=== PATIENT | male | born 1945 | race Caucasian/White ===

== ENCOUNTER 2017-05-31 22:19 | Emergency (ER) | payer MEDICARE ==
[2017-05-31] MEDS ORDERED: diphenhydrAMINE HCl 25 MG CAP ONE (23:03)
[2017-05-31] MEDS ORDERED: Metoclopramide HCl 10 MG TAB PO SCH (23:15)
--- NOTE | 2017-06-01 00:03 | CT ---
CT BRAIN NONCONTRAST: HISTORY: A 71-year-old hypertensive male with headache. FINDINGS: There is no midline shift or any other mass effect. There is no evidence of acute intracranial hemo rrhage, large cortical infarct, obstructive hydrocephalus, or extraaxial fluid collection. The calv arium is intact. There is diffuse parenchymal volume loss. There are low attenuation areas in the white matter. These are nonspecific, but in a patient of this age, they are probably chronic ischem ic white matter changes due to microvascular atherosclerosis. There is a small, round, 6 mm cystic lesion with thin rim calcification, to the right of midline, within the fourth ventricle. The etiol ogy is uncertain, but one possibility is old, inactive neurocysticercosis. This has been present si nce an older CT of 07/21/2011 and has not changed. IMPRESSION: 1) No acute intracranial findings. 2) Involutional changes and chronic ischemic white matter changes. sonali POS: [facility]
== END 2017-06-01 00:03 | disposition home or self-care (01) ==
LOC: ERS 22:19
DX: I10 Essential (primary) hypertension (principal); I48.91 Unspecified atrial fibrillation; E78.5 Hyperlipidemia, unspecified; Z79.82 Long term (current) use of aspirin; Z79.899 Other long term (current) drug therapy
CPT/HCPCS: 70450

== ENCOUNTER 2020-01-26 19:01 | Inpatient (IN) | payer MEDICARE ==
[2020-01-26 19:35] LABS: #Eosinphils 0.1 thou/uL (0.0-0.7); #Lymphocytes 1.2 thou/uL (1.20-3.40); #Monocytes 0.7 thou/uL (0.11-0.59); #Neutrophils 4.7 thou/uL (1.40-6.50); %Basophils 0.3 % (0.0-1.0); %Lymphocytes 17.9 % (21.0-51.0); %Monocytes 10.7 % (0.0-10.0); %Neutrophils 69.1 % (42.0-75.0); Hemoglobin 14.4 g/dL (14.0-18.0); Mean Corpuscular HGB CONC 34.5 g/dL (32.0-36.0); Mean Corpuscular Hemoglobin 30.5 pg (27.0-31.0); Mean Corpuscular Volume 88.5 fL (78.0-98.0); Mean Platelet Volume 9.1 fL (7.4-10.4); Platelet Count 217 thou/uL (130-400); RBC Distribution Width 12.6 % (11.5-14.5); White Blood Cell (WBC) Count 6.8 thou/uL (4.8-10.8)
[2020-01-26 19:57] LABS: ALT (SGPT) 50 U/L (8-55); AST (SGOT) 37 U/L (5-34); Albumin 4.1 g/dL (3.4-4.8); Alkaline Phosphatase 75 U/L (40-110); Anion Gap 15 mmol/L (10-20); BUN (Urea Nitrogen) 18 mg/dL (8.4-25.7); Bilirubin, Total 0.4 mg/dL (0.2-1.2); Calc. Creatinine Clearance 0 mL/min (70-130); Calcium 9.4 mg/dL (7.8-10.44); Carbon Dioxide 22 mmol/L (23-31); Chloride 108 mmol/L (98-107); Estimated GFR-MDRD 56; Glucose 119 mg/dL (83-110); Potassium 4.5 mmol/L (3.5-5.1); Protein, Total 7.1 g/dL (5.8-8.1); Sodium 140 mmol/L (136-145)
--- NOTE | 2020-01-26 20:33 | RAD ---
PORTABLE CHEST ONE VIEW: 01/26/20 at 7:13 p.m. HISTORY: Shortness of breath and lightheadedness. COMPARISON: 01/31/13. FINDINGS: The heart size is normal. No focal areas of consolidation, pneumothoraces, or pleural effusions are s een. IMPRESSION: No acute process. POS: [facility]
--- NOTE | 2020-01-26 21:13 | PDOC.EVN ---
Event Note - Event Note Event Note: [id number] dictated
--- NOTE | 2020-01-26 22:04 | HP ---
CHIEF COMPLAINT: Shortness of breath and dizziness. HISTORY OF PRESENT ILLNESS: Mr. Vallejo is a 74-year-old male with past medical history of cardiac arrhythmias, atrial fibrillation, ablation, hyperlipidemia, on metoprolol, on Eliquis, presents to the emergency room with a chief complaint of shortness of breath. The patient also has been feeling weak, lightheaded, and dizzy, which have been occurring for the last 2 weeks. The patient states that he has history of atrial fibrillation and he had an ablation [place] [address] Farley. The patient states that he hit his head a week ago, and CT was performed which was negative. It did show an old infarct. The patient denies any headache or neurological deficits. He is on metoprolol 50 mg p.o. twice a day. Dr. Cho is his senior analysis specialist. Workup in the emergency room, the patient was bradycardic. With EKG showing second-degree AV block. The ED physician discussed the case with Dr. Gomez, senior analysis specialist, who advised to admit the patient, and Cardiology will consult. PAST MEDICAL HISTORY: 1. Cardiac arrhythmias, atrial fibrillation. 2. Hyperlipidemia. 3. Colon cancer. 4. CVA. PAST SURGICAL HISTORY: Colon resection. SOCIAL HISTORY: He drinks socially. He has no smoking history. Lives with family. FAMILY HISTORY: Reviewed and noncontributory. HOME MEDICATIONS: Please see home medication reconciliation form for updated medications. REVIEW OF SYSTEMS: Review of 14 systems negative except what is mentioned in history of present illness. ALLERGIES: NO KNOWN ALLERGIES. PHYSICAL EXAMINATION: GENERAL: The patient is awake, alert, does not appear to be in acute distress. VITAL SIGNS: Blood pressure 138/71, pulse on presentation was 42, later pulse is 72, temperature is 98.4, oxygen saturations 99% on room air, respiratory rate is 14. HEAD AND NECK: Normocephalic and atraumatic. NECK: Supple. No JVD. CHEST: Fair bilateral air entry. HEART: S1 and S2. Regular. ABDOMEN: Soft, nontender. Bowel sounds present. NEUROLOGIC: Awake, alert, oriented x4. Moving extremities. PSYCH: Unable to assess. EXTREMITIES: No clubbing or cyanosis. LABORATORY DATA: Troponin 0.01. Chest x-ray, no acute finding. EKG as mentioned above in the history of present illness. ASSESSMENT: 1. Symptomatic bradyarrhythmia/heart block. 2. Dizziness, lightheadedness. 3. Shortness of breath. 4. Anticoagulated on Eliquis. 5. History of cardiac ablation. 6. History of colon cancer, treated with resection, chemo and radiation. 7. History of cerebrovascular accident. PLAN: 1. Admit to [facility]. 2. Telemetry monitoring. 3. Roofer consulted for further management. 4. We will hold the beta robb, assessed by a senior analysis specialist. 5. Reconcile home medications. 6. DVT prophylaxis as appropriate. 7. Expected length of stay, 2 midnights or more. Job ID: [id number]
[2020-01-26] MEDS ORDERED: Acetaminophen 325 MG TAB PO PRN (23:18)
[2020-01-26] MEDS ORDERED: Ondansetron ODT 4 MG TAB SL PRN (23:18)
[2020-01-26] MEDS ORDERED: Ondansetron PF 4 MG/2 ML Vial IVP PRN (23:18)
[2020-01-26 23:22] VITALS: BMI 30.8
[2020-01-27 00:56] LABS: Troponin I Less than 0.010 ng/mL (< 0.028)
[2020-01-27] MEDS ORDERED: Glucosamine Chondroitin Cap PO SCH (09:00)
[2020-01-27] MEDS: Dutasteride 0.5 MG CAP PO SCH (11:35)
[2020-01-27] MEDS: Multivitamin W/ Minerals 1 TAB PO SCH (11:35)
--- NOTE | 2020-01-27 13:02 | PRG ---
DATE OF SERVICE: 01/27/2020 SUBJECTIVE: The patient is seen and examined at bedside. He does not have much complaints to offer. He does not have any pain. He is not short of breath. Only he gets short of breath when he walks longer distance. OBJECTIVE: VITAL SIGNS: Blood pressure is 141/69, pulse is 62, respirations 16, O2 saturation 97% on room air, temperature is 97.8. HEENT: His head is atraumatic and normocephalic. Eyes are PERRLA. Sclerae are nonicteric. Oral mucosa is moist. NECK: Supple. LUNGS: Clear. HEART: S1 and S2 normal. No S3. No S4. No any murmur. ABDOMEN: Soft, nontender. Bowel sounds are present. No organomegaly. EXTREMITIES: No clubbing, cyanosis, or edema. NEUROLOGIC: He is alert and oriented x4. There is no any motor or sensory deficits. LABORATORY DATA: Normal troponins, three sets. IMPRESSION: 1. Second-degree AV block. 2. Dizziness and lightheadedness. 3. History of cardiac ablation. 4. History of colon cancer, treated with resection and chemotherapy and radiation. 5. History of cerebrovascular accident. PLAN: Awaiting for tanning drum operator to see him at this point. We will hold his apixaban and metoprolol at this point since tanning drum operator will have to make decision about the next step at this point. Job ID: [id number]
--- NOTE | 2020-01-27 15:24 | CON ---
DATE OF CONSULTATION: REASON FOR CONSULTATION: Second-degree type 2 AV block. HISTORY OF PRESENT ILLNESS: Mr. Vallejo is a very pleasant 74-year-old gentleman whom I have seen him in the past. He has a past history of paroxysmal atrial fibrillation. He has been on Eliquis. He is also on metoprolol 50 mg p.o. b.i.d. He re-presented with shortness of breath. He states he had difficulty walking to the mailbox. He was found to have a second-degree type 2 AV block while in the ER. This has since resolved after discontinuing his metoprolol. He states he is back to baseline. PAST MEDICAL HISTORY: Paroxysmal atrial fibrillation, hypertension, hyperlipidemia, sleep apnea. CURRENT HOME MEDICATIONS: 1. Glucosamine. 2. Eliquis. 3. Avodart. 4. Metoprolol. 5. Multivitamin. 6. Lipitor. 7. . PAST SURGICAL HISTORY: Hemicolectomy and previous heart catheterization in 2011. SOCIAL HISTORY: No current tobacco or alcohol use. ALLERGIES: NONE. REVIEW OF SYSTEMS: A 10-point review of systems is reviewed and as above, otherwise negative. PHYSICAL EXAMINATION: GENERAL: Patient is a pleasant gentleman who is in no acute distress. The patient appears their stated age. VITAL SIGNS: Blood pressure 140/69, pulse 62, temperature 98.7. NEUROLOGIC: The patient is alert and oriented x3 with no focal neurologic deficits. HEENT: Sclerae without icterus. Mouth has moist mucous membranes with normal pallor. NECK: No JVD. Carotid upstroke brisk. No bruits bilaterally. LUNGS: Clear to auscultation with unlabored respirations. BACK: No scoliosis or kyphosis. CARDIAC: Regular rate and rhythm with normal S1 and S2. No S3 or S4 noted. No significant rubs, murmurs, thrills, or gallops noted throughout the precordium. PMI is not displaced. There is no parasternal heave. ABDOMEN: Soft, nontender, nondistended. No peritoneal signs present. No hepatosplenomegaly. No abnormal striae. EXTREMITIES: 2+ femoral and 2+ dorsalis pedis pulses. No cyanosis, clubbing, or edema. SKIN: No gross abnormalities. PERTINENT LABORATORY DATA: Hemoglobin 14.4, creatinine 1.25, troponin negative. Echo Doppler pending. IMPRESSION: 1. Second degree type 2 AV block. 2. History of paroxysmal atrial fibrillation. RECOMMENDATIONS: At this point, Mr. Vallejo's beta robb is unlikely to cause underlying second-degree type 2 AV block. His presentation suggest symptoms from his rhythm disturbance. I would recommend EP consultation. The patient will likely need pacer. He has been off his Eliquis with last dose yesterday morning. Job ID: [id number]
[2020-01-27 15:37] LABS: Prothrombin Time 13.4 sec (12.0-14.7)
[2020-01-27] MEDS ORDERED: Atorvastatin Calcium 20 MG TAB PO SCH (21:00)
--- NOTE | 2020-01-27 21:00 | CON ---
DATE OF CONSULTATION: 01/27/2020 PRIMARY CARE PHYSICIAN: Leroy Zapata MD REASON FOR CONSULTATION: 2:1 AV block. HISTORY OF PRESENT ILLNESS: Mr. Vallejo is a pleasant 74-year-old white male with a history of paroxysmal atrial fibrillation with ablation by the [facility] in 2013. He has a 2-day history of exertional dyspnea, which is [id number] relieved with rest. In addition, he has daily fatigue, which is moderate in intensity with no exacerbating or alleviating factors. He has had no syncope. He was noted to be in 2:1 AV block on admission. Echocardiogram was performed this morning. PAST MEDICAL HISTORY: 1. Paroxysmal atrial fibrillation with ablation in 2013. 2. Dyslipidemia. 3. Colon cancer status post resection. 4. CVA. PAST SURGICAL HISTORY: Colon resection. ALLERGIES: NO KNOWN DRUG ALLERGIES. HOME MEDICATIONS: 1. Eliquis 5 mg b.i.d. 2. Metoprolol 50 mg b.i.d. 3. Lipitor 20 mg q.p.m. 4. Vitamin D3. 5. Dutasteride 0.5 mg daily. 6. Glucosamine chondroitin daily. FAMILY HISTORY: Unremarkable. SOCIAL HISTORY: Occasional alcohol. Never smoked. REVIEW OF SYSTEMS: No melena, bright red blood per rectum, hematemesis. No seizures, syncope, stroke, chest discomfort, orthopnea, or edema. PHYSICAL EXAMINATION: GENERAL: Alert and oriented x4. No apparent distress, afebrile, pulse 50, respiratory rate 12, ox saturation 96% on room air, blood pressure 144/75. HEENT: No lesions. Sclerae clear. SKIN: No lesions. CARDIOVASCULAR: Bradycardic, regular rhythm. No murmurs, gallops, rubs. LUNGS: Clear to auscultation bilaterally. Normal respiratory effort. EXTREMITIES: No cyanosis, clubbing or edema. IMAGING: EKG sinus rhythm with 2:1 AV block. LABORATORY DATA: Sodium 140, potassium 4.5, creatinine 1.2. WBC 6.8, hemoglobin 14.4, platelet 217. IMPRESSION: 1. Mobitz type II 2:1 atrioventricular block with symptomatic bradycardia. 2. Paroxysmal atrial fibrillation. Recommend we have discussed risks, benefits, alternatives of permanent pacemaker implantation including, but not limited to myocardial infarction, stroke, , infection, need for device removal, pneumothorax, need for chest tube placement, lead dislodgement, need for revision, left arm swelling. We will plan to perform this tomorrow. He is agreeable to proceed. Job ID: [id number]
[2020-01-28] MEDS ORDERED: Vancomycin 1.5 GRAM/300 ML BAG 1.5 GM in Premix Bag 1 BAG IVPB SCH (05:00)
[2020-01-28] MEDS ORDERED: Gentamicin 80 MG/2 ML VIAL ONE (06:26)
[2020-01-28] MEDS ORDERED: CEFAZOLIN 1 GM VIAL ONE (06:26)
[2020-01-28] MEDS ORDERED: HYDROcodone/Acetaminophen 5/325 mg Tablet PO PRN (06:59)
[2020-01-28] MEDS ORDERED: Midazolam HCl 2 mg/2 ml Vial ONE ×2 (07:07→07:12)
[2020-01-28] MEDS ORDERED: Fentanyl 100 MCG/2 ML VIAL ONE (07:07)
[2020-01-28] MEDS: Multivitamin W/ Minerals 1 TAB PO SCH (08:51)
[2020-01-28] MEDS: Dutasteride 0.5 MG CAP PO SCH (08:51)
[2020-01-28] MEDS ORDERED: Iopamidol 370 76% 50 ML VIAL FS ONE (09:17)
[2020-01-28 10:39] LABS: Anion Gap 9 mmol/L (10-20); BUN (Urea Nitrogen) 12 mg/dL (8.4-25.7); Calc. Creatinine Clearance 90 mL/min (70-130); Calcium 8.8 mg/dL (7.8-10.44); Carbon Dioxide 27 mmol/L (23-31); Chloride 107 mmol/L (98-107); Estimated GFR-MDRD 68; Glucose 166 mg/dL (83-110); Potassium 3.8 mmol/L (3.5-5.1); Sodium 139 mmol/L (136-145)
--- NOTE | 2020-01-28 12:21 | RAD ---
SINGLE VIEW OF THE CHEST: COMPARISON: None. HISTORY: Status post cardiac pacemaker placement. FINDINGS: A single view of the chest shows a normal-size cardiomediastinal silhouette. There is a pacemaker wi th its leads in the right atrium and ventricle. No pneumothorax is seen. There is no evidence of co nsolidation, mass, or pleural effusion. IMPRESSION: Status post pacemaker placement without evidence of complication. POS: [facility]
[2020-01-28 13:20] VITALS: BP 142/79; TEMP 97.5
[2020-01-28] MEDS ORDERED: CEFAZOLIN 2 GM in Premix Bag 1 BAG IVPB SCH (15:00)
--- NOTE | 2020-01-29 01:52 | DIS ---
DATE OF ADMISSION: 01/26/2020 DATE OF DISCHARGE: 01/28/2020 DISCHARGE DIAGNOSES: 1. A 2:1 atrioventricular block. 2. History of atrial fibrillation, on Eliquis. 3. Hyperlipidemia. 4. History of colon cancer. 5. History of cerebrovascular accident. CONSULTATIONS: Leander Cho MD of Cardiology and Manfred Rizo MD with EP. PROCEDURES: Pacemaker placement on 01/27. HISTORY OF PRESENT ILLNESS: This is a 74-year-old male with a past medical history of atrial fibrillation status post ablation, who presented to the emergency room with weakness, lightheadedness, and dizziness for the past 2 weeks. The patient presented to the emergency room and was found to be bradycardic. His EKG showed a second-degree AV block. The patient was admitted for pacemaker evaluation. HOSPITAL COURSE: Second-degree AV block status post pacemaker placement: The patient underwent pacemaker insertion on 01/27. He tolerated the procedure well. He is currently in sinus rhythm at this time. He will be discharged with minocycline for additional 5 days as prophylaxis for pacemaker infection. He will decrease his metoprolol to 50 mg XL once daily. He will follow up with Dr. Manfred Rizo in 2 weeks. They will call him for an appointment. He should resume his Eliquis on Friday. DISCHARGE PHYSICAL EXAMINATION: VITAL SIGNS: Temperature 97.5, heart rate 74, respiratory rate 16, O2 saturation 96% on room air, and blood pressure 142/79. GENERAL: The patient is alert, awake, and oriented x3. CVS: Regular rate and rhythm. No murmurs, rubs, or gallops. LUNGS: Clear to auscultation bilaterally. ABDOMEN: Positive bowel sounds. Soft, nontender, and nondistended. EXTREMITIES: No edema. PERTINENT LABORATORY DATA: CBC 01/25: Normal. BMP 01/27: Normal. AST 01/25: AST was 37. Rest of LFTs are normal. Troponin I: Negative x3. INR: 1.0. PERTINENT IMAGING: Echocardiogram 01/26: Shows EF 55% to 60%. Mild to moderate MR. Grade 2 diastolic dysfunction. Chest x-ray 01/27: Status post pacemaker placement without evidence of complication. Chest x-ray 01/25: No acute process. DISCHARGE INSTRUCTIONS: The patient should follow up with his PCP in a week and Dr. Manfred Rizo in 2 weeks. Reduce his metoprolol to 50 mg once daily. Take minocycline for 5 days. DISCHARGE MEDICATIONS: 1. Minocycline 100 mg p.o. q.12 hours, quantity 10. 2. Metoprolol succinate 50 mg p.o. daily, quantity 30. Job ID: [id number] MTDD
== END 2020-01-28 15:02 | disposition home or self-care (01) | DRG 244 ==
LOC: ERS 19:01 → 2NO 21:01
PROVIDERS: ADMIT Internal Medicine; ATTEND Internal Medicine
PROC: 0JH606Z Insertion of Pacemaker, Dual Chamber into Chest Subcutaneous Tissue and Fascia, Open Approach (ICD-10-PCS; principal; 2020-01-28)
PROC: 02H63JZ Insertion of Pacemaker Lead into Right Atrium, Percutaneous Approach (ICD-10-PCS; 2020-01-28)
PROC: 02HK3JZ Insertion of Pacemaker Lead into Right Ventricle, Percutaneous Approach (ICD-10-PCS; 2020-01-28)
DX: I44.1 Atrioventricular block, second degree (principal); I48.91 Unspecified atrial fibrillation; E78.5 Hyperlipidemia, unspecified; I48.0 Paroxysmal atrial fibrillation; G47.33 Obstructive sleep apnea (adult) (pediatric); Z79.01 Long term (current) use of anticoagulants; Z85.038 Personal history of other malignant neoplasm of large intestine; Z86.73 Personal history of transient ischemic attack (TIA), and cerebral infarction without residual deficits; Z90.49 Acquired absence of other specified parts of digestive tract
CPT/HCPCS: 33208; 36415; 71045; 75820; 80048; 80053; 84484; 85025; 85610; 93005; 93010; 93306; 94760; 99152; 99153; C1785; C1898; J0690; J1580; J2250; J3010; J3370; Q9967

== ENCOUNTER 2020-05-04 09:53 | Outpatient (CLI) | payer MEDICARE ==
--- NOTE | 2020-05-04 15:45 | PET ---
EXAM: PET/CT HISTORY: New diagnosis of lung cancer with a previous history of rectal cancer and hip pain. Right upper lobe nodule biopsy demonstrated adenocarcinoma, consistent with lung primary. TECHNIQUE: PET scanning with CT attenuation correction was performed from the base of the brain to the proximal thighs following the intravenous administration of 11 millicuries [id number]. COMPARISON: None. CORRELATION: CT chest, abdomen and pelvis of 03/31/[address] pelvis of 05/02/2020 FINDINGS: No elvis hypermetabolism is seen in the neck, axillae, left hilar regions, abdomen and pelvis. There is increased FDG localization in the right upper lobe lung nodule within a SUV of 5.7. Hypermet abolic right hilar lymph node demonstrates an SUV of 12.4 and subcarinal lymph node demonstrates an SUV of 6.4. No hypermetabolic liver or adrenal lesions are seen. There are foci of increased uptake in the skeleton including T6 vertebral body (SUV 9), right pedicle of T7 (SUV 8.6), L3 vertebral body (SUV 12.8) and right anterior superior iliac wing (SUV 11.5). Associated fractures of T7 and right anterior superior iliac wing are new since 03/31/2020 and are lik shadia pathologic. There is physiologic activity in the GI and tracts and the visualized portions of the brain. The CT scan used for attenuation correction demonstrates no evidence of pleural effusions or ascites. IMPRESSION: Right upper lobe lung malignancy with right hilar, mediastinal lymph elvis and osseous metastases.
== END 2020-05-04 09:54 | disposition home or self-care (01) ==
LOC: PET 09:53
PROVIDERS: ATTEND Internal Medicine Hematology & Oncology
DX: C34.11 Malignant neoplasm of upper lobe, right bronchus or lung (principal)
CPT/HCPCS: 78815; A9552

== ENCOUNTER 2020-05-11 10:28 | Inpatient (IN) | payer MEDICARE, OTHER ==
[2020-05-11 11:22] LABS: #Basophils 0.1 thou/uL (0.0-0.2); #Eosinphils 0.1 thou/uL (0.0-0.7); #Lymphocytes 0.5 thou/uL (1.20-3.40); #Monocytes 0.7 thou/uL (0.11-0.59); #Neutrophils 7.1 thou/uL (1.40-6.50); %Basophils 0.6 % (0.0-1.0); %Eosinophils 1.2 % (0.0-10.0); %Lymphocytes 5.8 % (21.0-51.0); %Monocytes 7.9 % (0.0-10.0); %Neutrophils 84.5 % (42.0-75.0); Hemoglobin 14.8 g/dL (14.0-18.0); Mean Corpuscular HGB CONC 32.5 g/dL (32.0-36.0); Mean Corpuscular Hemoglobin 29.6 pg (27.0-31.0); Mean Corpuscular Volume 91.1 fL (78.0-98.0); Mean Platelet Volume 7.2 fL (7.4-10.4); Platelet Count 207 thou/uL (130-400); RBC Distribution Width 14.2 % (11.5-14.5); Red Blood Cell (RBC) Count 5.01 mill/uL (4.70-6.10); White Blood Cell (WBC) Count 8.5 thou/uL (4.8-10.8)
--- NOTE | 2020-05-11 11:37 | CT ---
Exam: Head CT without contrast HISTORY: Altered mental status COMPARISON: 05/31/2017 FINDINGS: Hemorrhage: No intraparenchymal hemorrhage or extra-axial hematoma. Brain parenchyma: There appears to be a intraparenchymal lesion in the left frontal lobe measuring 1. 5 x 1.6 cm. There is vasogenic edema and sulcal effacement involving the left frontal lobe. No significant midline shift. There are chronic small vessel ischemic changes of the white matter. Ventricular system: No evidence of hydrocephalus. Stable lesion with peripheral calcification in the fourth ventricle. Calvarium: Intact. Sinuses and mastoid air cells: Adequate aeration. IMPRESSION: 1. Left frontal lobe intraparenchymal mass with associated vasogenic edema. Incomplete characterizati on. Patient has a history of lung cancer. Metastases is favored. Correlation made with a brain MRI from 03/27/2020 does demonstrate a intraparenchymal lesion in the le ft frontal lobe.
--- NOTE | 2020-05-11 11:41 | RAD ---
Exam: One view chest 2 views abdomen HISTORY: Pain. FINDINGS: Chest 1 view: Dual lead left-sided transvenous pacemaker terminates over the region right atrium and right ventricle There is slight elongation of the aorta Normal cardiac silhouette Pulmonary vessels and hilum are normal Costophrenic angles are clear. There is a mass in the right upper lobe, compatible with known malignancy. There is a lucent lesion involving the right clavicle which may represent a metastatic deposit. No pneumothorax or acute osseous abnormalities 2 views abdomen: Nonspecific bowel gas pattern. No suspicious densities in the abdomen or pelvis. Henri gical clips are identified in the midline pelvis. Limited option the right hip. There is concern for fracture, dedicated right hip radiograph series is recommended. Right hip radiograph from 05/02/2020 does not demonstrate any fracture IMPRESSION: 1. Nonspecific bowel gas pattern 2. Right lung mass.
[2020-05-11 11:50] LABS: ALT (SGPT) 27 U/L (8-55); AST (SGOT) 15 U/L (5-34); Albumin 3.6 g/dL (3.4-4.8); Alkaline Phosphatase 113 U/L (40-110); Anion Gap 17 mmol/L (10-20); BUN (Urea Nitrogen) 17 mg/dL (8.4-25.7); Bilirubin, Total 0.9 mg/dL (0.2-1.2); CK (CPK) 36 U/L (30-200); Calc. Creatinine Clearance 0 mL/min (70-130); Calcium 9.4 mg/dL (7.8-10.44); Carbon Dioxide 25 mmol/L (23-31); Chloride 97 mmol/L (98-107); Estimated GFR-MDRD 66; Globulin 2.7 g/dL (2.4-3.5); Glucose 122 mg/dL (83-110); Lipase 26 U/L (8-78); Potassium 4.5 mmol/L (3.5-5.1); Protein, Total 6.3 g/dL (5.8-8.1); Sodium 134 mmol/L (136-145)
--- NOTE | 2020-05-11 12:00 | CT ---
CT lumbar spine noncontrast: HISTORY: 74-year-old male with history of lung cancer and rectal cancer presents to the emergency department w ith lower extremity weakness. FINDINGS: Vertebral body heights are maintained. The level at the thoracolumbar junction with small bilateral ribs will be designated as L1 with bilat eral accessory ribs. There is a fracture of the inferior endplate of L3 with Schmorl's node type herniation of the disc ma terial into the vertebral body. At the superior portion of the fracture, there is an approximately 2 cm osteolytic lesion of the L3 vertebral body centered to the left of midline. This does not result in overall loss of height. There is no bony retropulsion. Chronic retrolisthesis of L2 on L3. There is moderate and severe degenerative disc disease at various levels. There is moderate central s mono canal stenosis at L2-3. There is multilevel high-grade neural foraminal stenosis, especially on the left at L4-5, L3-4, and L2-3. There is moderate to severe bilateral facet DJD at L4-5 and L5-S 1. 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 IMPRESSION: 1.) Moderate lumbar spondylosis with multilevel degenerative disc disease and facet osteoarthrosis. 2) focal Schmorl's node fracture of inferior endplate of L3, which may not be chronic. This questiona trina involves a 2 cm osteolytic lesion of the L3 vertebral body. Given the history of malignancy, this raises the possibility of a bone metastasis.
[2020-05-11 12:23] LABS: Bilirubin Negative (Negative); Blood, Urine Negative (Negative); Clarity Clear (Clear); Glucose, Urine (Dipstick) Normal (Negative); Ketone, Urine Negative (Negative); Leukocyte Negative Leu/uL (Negative); Nitrite Negative (Negative); Protein, Urine (Dipstick) Negative (Neg-Trace); Specific Gravity, Urine 1.013 (1.002-1.036); Urobilinogen Normal mg/dL (Less than 2); pH, Urine 7.5 (5.0-9.0)
[2020-05-11] MEDS ORDERED: Morphine 4 MG/ML VIAL ONE (12:59)
--- NOTE | 2020-05-11 13:19 | RAD ---
2 views of the right hip: 05/11/2020 COMPARISON: 05/02/2020 HISTORY: Injury, trauma, pain FINDINGS: There is a displaced comminuted fracture involving the superior and lateral aspect of the r ight iliac bone, only partially imaged on this examination, demonstrating increased comminution and distal displacement when compared to the 05/02/2020 exam. No acute fracture or dislocation is seen inv olving the right hip. IMPRESSION: Incompletely imaged comminuted and displaced superior lateral right iliac wing fracture, likely pathologic in nature. This is not fully imaged on this examination. Follow-up orthopedic consultation is suggested.
--- NOTE | 2020-05-11 14:35 | RAD ---
Exam: Single view of the pelvis HISTORY: Right pelvic pain COMPARISON: CT pelvis 05/02/2020 FINDINGS: A single view the pelvis shows a comminuted fracture of the right iliac wing. No other frac tures are appreciated. No degenerative changes seen in either hip. IMPRESSION: Right iliac wing fracture. This fracture is likely pathologic
--- NOTE | 2020-05-11 15:41 | PDOC.HHP ---
Hospitalist HPI - History of Present Illness Generalized weakness History of Present Illness: The patient is a 74-year-old male with past medical history of active lung cancer with metastasis to the brain and bone who is under the care of Dr. Rosales and currently on hold for referral to [facility] for immunotherapy. He presented to the ER after a fall at home. The patient stated that he feels weak and was unable to get up or transfer from bed to the chair. Hospitalist ROS - Review of Systems All other systems reviewed; all pertinent +/- noted in HPI/Subj Hospitalist History - Past Medical History Other Medical History: Metastatic lung cancer Atrial fibrillation - Past Surgical History Other Surgical History: Dominant resection of brain tumor Colon resection - Family History Family History: reports: no pertinent history - Social History Alcohol: reports: None Drugs: reports: none - Exam General Appearance: awake alert ENT: normocephalic atraumatic Neck: supple, no JVD Heart: RRR, no murmur, no gallops, no rubs, normal peripheral pulses Respiratory: normal chest expansion, no tachypnea Gastrointestinal: soft, non-tender, non-distended, normal bowel sounds Neurological: cranial nerve grossly intact Hospitalist Results - Labs Result Diagrams: 05/12/20 03:21 05/12/20 03:21 Lab results: WBC 8.5 thou/uL (4.8-10.8) 05/11/20 11:10 Hgb 14.8 g/dL (14.0-18.0) 05/11/20 11:10 Hct 45.7 % (42.0-52.0) 05/11/20 11:10 MCV 91.1 fL (78.0-98.0) 05/11/20 11:10 Plt Count 207 thou/uL (130-400) 05/11/20 11:10 Neutrophils % 84.5 % (42.0-75.0) H 05/11/20 11:10 Sodium 134 mmol/L (136-145) L 05/11/20 11:10 Potassium 4.5 mmol/L (3.5-5.1) 05/11/20 11:10 Chloride 97 mmol/L (98-107) L 05/11/20 11:10 Carbon Dioxide 25 mmol/L (23-31) 05/11/20 11:10 BUN 17 mg/dL (8.4-25.7) 05/11/20 11:10 Creatinine 1.09 mg/dL (0.7-1.3) 05/11/20 11:10 Glucose 122 mg/dL (83-110) H 05/11/20 11:10 Calcium 9.4 mg/dL (7.8-10.44) 05/11/20 11:10 Total Bilirubin 0.9 mg/dL (0.2-1.2) 05/11/20 11:10 AST 15 U/L (5-34) 05/11/20 11:10 ALT 27 U/L (8-55) 05/11/20 11:10 Alkaline Phosphatase 113 U/L (40-110) H 05/11/20 11:10 Creatine Kinase 36 U/L (30-200) 05/11/20 11:10 Troponin I Less than 0.010 ng/mL (< 0.028) 05/11/20 11:10 B-Natriuretic Peptide 22.8 pg/mL (0-100) 05/11/20 11:10 Serum Total Protein 6.3 g/dL (5.8-8.1) 05/11/20 11:10 Albumin 3.6 g/dL (3.4-4.8) 05/11/20 11:10 Lipase 26 U/L (8-78) 05/11/20 11:10 Urine Ketones Negative mg/dL (Negative) 05/11/20 12:10 Urine Blood Negative (Negative) 05/11/20 12:10 Urine Nitrite Negative (Negative) 05/11/20 12:10 Ur Leukocyte Esterase Negative Salima/uL (Negative) 05/11/20 12:10 Hospitalist H&P A/P - Problem (1) Generalized weakness Code(s): R53.1 - WEAKNESS Status: Acute (2) Lung cancer metastatic to bone Code(s): C34.90 - MALIGNANT NEOPLASM OF UNSP PART OF UNSP BRONCHUS OR LUNG; C79.51 - SECONDARY MALIGNANT NEOPLASM OF BONE Status: Acute (3) Lung cancer metastatic to brain Code(s): C34.90 - MALIGNANT NEOPLASM OF UNSP PART OF UNSP BRONCHUS OR LUNG; C79.31 - SECONDARY MALIGNANT NEOPLASM OF BRAIN Status: Acute - Plan Plan: The patient with history of metastatic lung cancer. He is being admitted for generalized weakness. PT and OT evaluation. Consult case management for rehab placement. Otherwise he is clinically stable.
[2020-05-11] MEDS ORDERED: Ondansetron PF 4 MG/2 ML Vial IVP PRN (15:42)
[2020-05-11] MEDS: HYDROcodone/Acetaminophen 5/325 mg Tablet PO PRN (20:26)
[2020-05-11 21:15] VITALS: BMI 30.8
[2020-05-11] MEDS: Famotidine 20 MG TAB PO SCH (21:28)
[2020-05-11] MEDS: Apixaban 5 MG TAB PO SCH (21:28)
[2020-05-11] MEDS ORDERED: Morphine 4 MG/ML VIAL SLOW IVP SCH (21:30)
[2020-05-12] MEDS: HYDROcodone/Acetaminophen 5/325 mg Tablet PO PRN ×5 (00:01→20:55)
[2020-05-12 03:50] LABS: #Eosinphils 0.1 thou/uL (0.0-0.7); #Lymphocytes 0.6 thou/uL (1.20-3.40); #Monocytes 0.9 thou/uL (0.11-0.59); #Neutrophils 7.1 thou/uL (1.40-6.50); %Basophils 0.1 % (0.0-1.0); %Eosinophils 1.2 % (0.0-10.0); %Lymphocytes 6.9 % (21.0-51.0); %Neutrophils 81.8 % (42.0-75.0); Mean Corpuscular HGB CONC 34.6 g/dL (32.0-36.0); Mean Corpuscular Hemoglobin 30.7 pg (27.0-31.0); Mean Corpuscular Volume 88.8 fL (78.0-98.0); Mean Platelet Volume 7.6 fL (7.4-10.4); Platelet Count 190 thou/uL (130-400); Red Blood Cell (RBC) Count 4.22 mill/uL (4.70-6.10); White Blood Cell (WBC) Count 8.6 thou/uL (4.8-10.8)
[2020-05-12 04:11] LABS: Anion Gap 14 mmol/L (10-20); BUN (Urea Nitrogen) 20 mg/dL (8.4-25.7); Calc. Creatinine Clearance 101 mL/min (70-130); Calcium 8.3 mg/dL (7.8-10.44); Carbon Dioxide 23 mmol/L (23-31); Chloride 100 mmol/L (98-107); Estimated GFR-MDRD 75; Glucose 154 mg/dL (83-110); Potassium 4.2 mmol/L (3.5-5.1); Sodium 133 mmol/L (136-145)
[2020-05-12] MEDS: Dutasteride 0.5 MG CAP PO SCH (09:04)
[2020-05-12] MEDS: Famotidine 20 MG TAB PO SCH ×2 (09:04→20:54)
[2020-05-12] MEDS: Atorvastatin Calcium 20 MG TAB PO SCH (09:04)
[2020-05-12] MEDS: Apixaban 5 MG TAB PO SCH (09:06)
[2020-05-12] MEDS: Cholecalciferol 1,000 UNITS (25 MCG) TAB PO SCH (09:06)
[2020-05-12 11:47] LABS: SARS-CoV-2 MS2 Positive; SARS-CoV-2 N Gene Positive; SARS-CoV-2 S Gene Negative; SARS-CoV-2 by NAA DETECTED (NotDetected); SARS-CoV-2 orf1ab Positive
--- NOTE | 2020-05-12 12:48 | PDOC.HOSPP ---
- Subjective Encounter Date: 05/12/20 Subjective: The patient denies chest pain, cough, or shortness of breath. No fever was reported since admission. - Objective Vital Signs & Weight: Vital Signs (12 hours) Temp Pulse Resp BP Pulse Ox 05/12/20 11:49 98.0 F 95 18 114/65 95 05/12/20 07:32 97.6 F 93 16 111/66 94 L 05/12/20 04:00 97.7 F 96 16 107/53 L 95 Weight Weight 240 lb I&O: 05/11/20 05/12/20 05/13/20 06:59 06:59 06:59 Intake Total 250 Output Total 200 Balance 50 Result Diagrams: 05/12/20 03:21 05/12/20 03:21 Hospitalist ROS - Medication Medications: Active Medications Generic Name Dose Route Start Last Admin Trade Name Freq PRN Reason Stop Dose Admin Hydrocodone Bitart/Acetaminophen 1 tab 05/11/20 15:42 05/12/20 10:27 Hydrocodone/Acetaminophen 5/325 Mg Tablet PO 1 tab Q4H PRN Administration Moderate Pain (4-6) Apixaban 5 mg 05/11/20 21:00 05/12/20 09:06 Apixaban 5 Mg Tab PO Not Given BID SHEA Atorvastatin Calcium 20 mg 05/12/20 09:00 05/12/20 09:04 Atorvastatin Calcium 20 Mg Tab PO 20 mg DAILY SHEA Administration Cholecalciferol 2,000 units 05/12/20 09:00 05/12/20 09:06 Cholecalciferol 1,000 Units (25 Mcg) Tab PO 2,000 units DAILY SHEA Administration Dutasteride 0.5 mg 05/12/20 09:00 05/12/20 09:04 Dutasteride 0.5 Mg Cap PO 0.5 mg DAILY SHEA Administration Famotidine 20 mg 05/11/20 21:00 05/12/20 09:04 Famotidine 20 Mg Tab PO 20 mg BID SHEA Administration Metoprolol Succinate 50 mg 05/12/20 09:00 05/12/20 09:05 Metoprolol Succinate Xl 50 Mg Tab PO 50 mg DAILY SHEA Administration - Exam General Appearance: awake alert ENT: normocephalic atraumatic Neck: supple, no JVD Respiratory: normal chest expansion, no tachypnea Neurological: cranial nerve grossly intact Hosp A/P (1) Generalized weakness Code(s): R53.1 - WEAKNESS Status: Acute (2) Lung cancer metastatic to bone Code(s): C34.90 - MALIGNANT NEOPLASM OF UNSP PART OF UNSP BRONCHUS OR LUNG; C79.51 - SECONDARY MALIGNANT NEOPLASM OF BONE Status: Acute (3) Lung cancer metastatic to brain Code(s): C34.90 - MALIGNANT NEOPLASM OF UNSP PART OF UNSP BRONCHUS OR LUNG; C79.31 - SECONDARY MALIGNANT NEOPLASM OF BRAIN Status: Acute (4) COVID-19 Code(s): U07.1 - COVID-19 Status: Acute - Plan Generalized weakness. Continue PT and OT. The patient was admitted for rehab placement. Case management consulted. COVID-19 is positive, however, the patient is asymptomatic and there is no hypox ia. Lovenox for DVT phylaxis.
[2020-05-12] MEDS: Enoxaparin Sodium 30 MG/0.3 ML SYRINGE SC SCH (20:54)
--- NOTE | 2020-05-12 22:50 | RAD ---
Radiograph abdomen one view: 05/12/2020 10:21 PM HISTORY: 74-year-old male with no bowel movement COMPARISON: 05/11/2020 FINDINGS: Large amount of stool in the right hemicolon. Moderate amount of stool in the rest of the colon. Gas in multiple nondilated loops of colon and small intestine. No major interval change. Surgical clips in the pelvis. Fracture of lateral aspect of right iliac wing with comminution and lateral displaceme nt of distal fragments. IMPRESSION: 1.) Nonobstructive bowel gas pattern. 2) constipation 3) comminuted, displaced fracture of right iliac wing.
[2020-05-12] MEDS ORDERED: Bisacodyl 5 MG TAB PO PRN (23:09)
[2020-05-13] MEDS: Senokot S 8.6-50 MG TAB PO PRN (03:58)
[2020-05-13] MEDS: HYDROcodone/Acetaminophen 5/325 mg Tablet PO PRN ×4 (03:58→23:47)
[2020-05-13] MEDS: Cholecalciferol 1,000 UNITS (25 MCG) TAB PO SCH (07:51)
[2020-05-13] MEDS: Famotidine 20 MG TAB PO SCH ×2 (07:51→21:00)
[2020-05-13] MEDS: Atorvastatin Calcium 20 MG TAB PO SCH (07:52)
[2020-05-13] MEDS: Dutasteride 0.5 MG CAP PO SCH (09:15)
[2020-05-13] MEDS ORDERED: Magnesium Citrate 300 ML BOT PO SCH (12:00)
--- NOTE | 2020-05-13 12:58 | PDOC.HOSPP ---
- Subjective Subjective: Patient was seen examined at bedside. No acute events overnight. Patient complains of some abdominal discomfort. KUB done this morning, show evidence of constipation. Scope was placed positive. He had no fever no cough. Patient apparently had a couple COVID test and was -1-2 weeks ago. He denies any histories of exposure. No cough. His last bowel movement was a week ago. Pelvic x-ray show right iliac wing fracture, pathologic. Patient follow by Dr. Bourgeois at outpatient couple weeks ago. Nonsurgical. - Objective Vital Signs & Weight: Vital Signs (12 hours) Temp Pulse Resp BP BP Pulse Ox 05/13/20 11:00 97.9 F 92 18 118/72 96 05/13/20 09:02 98 F 92 16 111/72 96 05/13/20 08:00 98 F 92 16 111/72 111/72 96 05/13/20 04:00 98.2 F 90 18 112/64 95 Weight Weight 240 lb I&O: 05/12/20 05/13/20 05/14/20 06:59 06:59 06:59 Intake Total 250 1315 Output Total 200 1050 Balance 50 265 Result Diagrams: 05/12/20 03:21 05/12/20 03:21 Hospitalist ROS - Medication Medications: Active Medications Generic Name Dose Route Start Last Admin Trade Name Freq PRN Reason Stop Dose Admin Hydrocodone Bitart/Acetaminophen 1 tab 05/11/20 15:42 05/13/20 10:30 Hydrocodone/Acetaminophen 5/325 Mg Tablet PO 1 tab Q4H PRN Administration Moderate Pain (4-6) Atorvastatin Calcium 20 mg 05/12/20 09:00 05/13/20 07:52 Atorvastatin Calcium 20 Mg Tab PO 20 mg DAILY SHEA Administration Cholecalciferol 2,000 units 05/12/20 09:00 05/13/20 07:51 Cholecalciferol 1,000 Units (25 Mcg) Tab PO 2,000 units DAILY SHEA Administration Dutasteride 0.5 mg 05/12/20 09:00 05/13/20 09:15 Dutasteride 0.5 Mg Cap PO 0.5 mg DAILY SHEA Administration Enoxaparin Sodium 30 mg 05/12/20 21:00 05/12/20 20:54 Enoxaparin Sodium 30 Mg/0.3 Ml Syringe SC 30 mg 2100 SHEA Administration Famotidine 20 mg 05/11/20 21:00 05/13/20 07:51 Famotidine 20 Mg Tab PO 20 mg BID SHEA Administration Magnesium Citrate 300 ml 05/13/20 12:00 05/13/20 12:10 Magnesium Citrate 300 Ml Bot PO 05/13/20 14:00 300 ml NOW SHEA Administration Metoprolol Succinate 50 mg 05/12/20 09:00 05/13/20 09:15 Metoprolol Succinate Xl 50 Mg Tab PO 50 mg DAILY SHEA Administration Senna/Docusate Sodium 2 tab 05/12/20 23:09 05/13/20 03:58 Senokot S 8.6-50 Mg Tab PO 2 tab BIDPRN PRN Administration Constipation - Exam General Appearance: NAD Eye: PERRL ENT: normocephalic atraumatic Neck: supple Heart: RRR Respiratory: CTAB, no wheezes Gastrointestinal: soft, non-tender, non-distended Extremities: no cyanosis, no clubbing, 2+ LE edema Skin: normal turgor Neurological: cranial nerve grossly intact Musculoskeletal: normal tone, normal strength Psychiatric: normal affect, normal behavior, A&O x 3 Hosp A/P - Plan The patient is unfortunate 74 years old gentleman, who has significant past medical history as of metastatic lung cancer to the brain, followed at [facility], who presented to the ER after a fall at home as he was trying to transfer from his wheelchair to the bedside commode, states that his legs gave out. He was found to have positive for COVID, asymptomatic. Generalized weakness -secondary to multifactorial --Continue PT, supportive cares. Rehab eval Metastatic lung cancer to the brain --Followed at [facility], Eliquis was discontinued by his oncologist d/t brain mass with associated vasogenic edema Right iliac wing fracture - likely pathologic --Nonsurgical. Followed by Dr. Bourgeois. Supportive cares. Pain control rehab eval COVID-19 --asymptomatic, monitor. Covid PCR positive on 05/11 PAF --rated controlled. cont BB. Eliquis was discontinued by his oncologist as mentioned above. HTN, essential --cont BB, resume Maxide LE edema - recent venous doppler was negative --improved per pt. Resume Maxide. Monitor. Leg elevation Constipation --start bowel regimen
[2020-05-13] MEDS: Enoxaparin Sodium 30 MG/0.3 ML SYRINGE SC SCH (21:00)
[2020-05-14] MEDS: HYDROcodone/Acetaminophen 5/325 mg Tablet PO PRN ×2 (05:21→17:49)
[2020-05-14] MEDS: Senokot S 8.6-50 MG TAB PO PRN (05:21)
[2020-05-14] MEDS: Triamterene/Hydrochlorothiazide 37.5 mg/25 mg Tablet PO SCH (07:49)
[2020-05-14] MEDS: Famotidine 20 MG TAB PO SCH ×2 (07:49→21:13)
[2020-05-14] MEDS: Cholecalciferol 1,000 UNITS (25 MCG) TAB PO SCH (07:50)
[2020-05-14] MEDS: Atorvastatin Calcium 20 MG TAB PO SCH (07:50)
[2020-05-14] MEDS: Polyethylene Glycol 3350 17 GM Packet PO SCH (07:51)
[2020-05-14] MEDS: Dutasteride 0.5 MG CAP PO SCH (08:35)
[2020-05-14] MEDS ORDERED: Bisacodyl 10 MG SUPP PR SCH (11:45)
[2020-05-14] MEDS ORDERED: Magnesium Citrate 300 ML BOT PO SCH (11:45)
--- NOTE | 2020-05-14 15:38 | PDOC.HOSPP ---
- Subjective Subjective: still no BM, no acute event overnight. no fever. no cough - Objective Vital Signs & Weight: Vital Signs (12 hours) Temp Pulse Resp BP Pulse Ox 05/14/20 15:07 98.6 F 109 H 16 126/79 94 L 05/14/20 11:58 98.3 F 94 18 117/77 95 05/14/20 08:00 97.8 F 87 18 111/74 95 05/14/20 04:00 98.3 F 90 18 115/75 95 Weight Weight 240 lb I&O: 05/13/20 05/14/20 05/15/20 06:59 06:59 06:59 Intake Total 1315 710 Output Total 1050 150 Balance 265 560 Result Diagrams: 05/12/20 03:21 05/12/20 03:21 Radiology Reviewed by me: Yes EKG Reviewed by me: Yes Hospitalist ROS - Medication Medications: Active Medications Generic Name Dose Route Start Last Admin Trade Name Freq PRN Reason Stop Dose Admin Hydrocodone Bitart/Acetaminophen 1 tab 05/11/20 15:42 05/14/20 05:21 Hydrocodone/Acetaminophen 5/325 Mg Tablet PO 1 tab Q4H PRN Administration Moderate Pain (4-6) Atorvastatin Calcium 20 mg 05/12/20 09:00 05/14/20 07:50 Atorvastatin Calcium 20 Mg Tab PO 20 mg DAILY SHEA Administration Cholecalciferol 2,000 units 05/12/20 09:00 05/14/20 07:50 Cholecalciferol 1,000 Units (25 Mcg) Tab PO 2,000 units DAILY SHEA Administration Dutasteride 0.5 mg 05/12/20 09:00 05/14/20 08:35 Dutasteride 0.5 Mg Cap PO 0.5 mg DAILY SHEA Administration Enoxaparin Sodium 30 mg 05/12/20 21:00 05/13/20 21:00 Enoxaparin Sodium 30 Mg/0.3 Ml Syringe SC 30 mg 2100 SHEA Administration Famotidine 20 mg 05/11/20 21:00 05/14/20 07:49 Famotidine 20 Mg Tab PO 20 mg BID SHEA Administration Polyethylene Glycol 17 gm 05/14/20 09:00 05/14/20 07:51 Polyethylene Glycol 3350 17 Gm Packet PO 17 gm DAILY SHEA Administration Senna/Docusate Sodium 2 tab 05/12/20 23:09 05/14/20 05:21 Senokot S 8.6-50 Mg Tab PO 2 tab BIDPRN PRN Administration Constipation Triamterene/HCTZ 1 tab 05/14/20 09:00 05/14/20 07:49 Triamterene/Hydrochlorothiazide 37.5 Mg/25 Mg Tablet PO 1 tab DAILY SHEA Administration Hosp A/P - Plan General Appearance: NAD Eye: PERRL ENT: normocephalic atraumatic Neck: supple Heart: RRR Respiratory: CTAB, no wheezes Gastrointestinal: soft, non-tender, non-distended Extremities: no cyanosis, no clubbing, 2+ LE edema Skin: normal turgor Neurological: cranial nerve grossly intact Musculoskeletal: normal tone, normal strength Psychiatric: normal affect, normal behavior, A&O x 3 The patient is unfortunate 74 years old gentleman, who has significant past medical history as of metastatic lung cancer to the brain, followed at [facility], who presented to the ER after a fall at home as he was trying to transfer from his wheelchair to the bedside commode, states that his legs gave out. He was found to have positive for COVID, asymptomatic. Generalized weakness -secondary to multifactorial --Continue PT, supportive cares. Rehab eval - pending Metastatic lung cancer to the brain --Followed at [facility], Eliquis was discontinued by his oncologist d/t brain mass with associated vasogenic edema Right iliac wing fracture - likely pathologic --Nonsurgical. Followed by Dr. Bourgeois. Supportive cares. Pain control rehab eval COVID-19 --asymptomatic, monitor. Covid PCR positive on 05/11 PAF --rated controlled. cont BB. Eliquis was discontinued by his oncologist as mentioned above. HTN, essential --cont BB, resume Maxide LE edema - recent venous doppler was negative --improved per pt. Resume Maxide. Monitor. Leg elevation Constipation --start aggressive bowel regimen
[2020-05-14] MEDS: Enoxaparin Sodium 30 MG/0.3 ML SYRINGE SC SCH (21:13)
[2020-05-15] MEDS: HYDROcodone/Acetaminophen 5/325 mg Tablet PO PRN ×2 (04:38→14:33)
[2020-05-15] MEDS: Polyethylene Glycol 3350 17 GM Packet PO SCH (09:42)
[2020-05-15] MEDS: Dutasteride 0.5 MG CAP PO SCH (09:43)
[2020-05-15] MEDS: Cholecalciferol 1,000 UNITS (25 MCG) TAB PO SCH (09:44)
[2020-05-15] MEDS: Triamterene/Hydrochlorothiazide 37.5 mg/25 mg Tablet PO SCH (09:44)
[2020-05-15] MEDS: Atorvastatin Calcium 20 MG TAB PO SCH (09:45)
[2020-05-15] MEDS: Famotidine 20 MG TAB PO SCH (09:45)
[2020-05-15 17:34] VITALS: TEMP 98
[2020-05-15 19:21] VITALS: BP 114/72
--- NOTE | 2020-05-15 19:28 | DIS ---
DATE OF ADMISSION: 05/13/2020 DATE OF DISCHARGE: 05/15/2020 DISCHARGE DIAGNOSES: 1. Generalized weakness. 2. Metastatic lung cancer to the brain. 3. COVID-19 positive. 4. Right iliac wing fracture, probably pathologic. 5. Paroxysmal atrial fib, rate controlled. Eliquis was discontinued by his oncologist given brain metastasis. 6. Hypertension. 7. Lower extremity edema. Venous Doppler was negative. 8. Constipation, resolved. CONSULTATION: None. LABORATORY DATA AND IMAGING STUDY: WBC 8.6, hemoglobin 13.0, hematocrit 37.5, and platelets 190. Chemistry; sodium is 133, potassium 4.2, chloride , carbon dioxide 23, BUN 20, creatinine 0.97, and glucose 154. AST and ALT within normal limits. Troponin less than 0.01. BNP 22.8. Albumin 3.6. Imaging study: Abdominal x-ray, nonobstructive bowel gas pattern. Constipation. Comminuted displaced fractures of the right iliac wing. Pelvis x-ray showed right iliac wing fracture. This fracture is slightly pathologic. Lumbar spine CT. Moderate lumbar spondylosis with multilevel degenerative disk disease and facet osteoarthritis. Focal Schmorl's node fracture of inferior endplate of L3, which may not be chronic. Questionably involve 2 cm osteolytic lesions of the L3 vertebral body. Given the history of malignancy, this raised possibilities of bones metastasis. Brain CT, left frontal lobe intraparenchymal mass with associated vasogenic edema. Incomplete characterization. Patient has history of lung cancer, metastasis is favored. The patient is a very unfortunate 74 years old gentleman, who has significant past medical histories of atrial fib, metastasis to the brain and bone, currently is under care of Dr. Rosales. He presented to the ED with status post fall as he was trying to transfer himself from the bed to chair. He was recently diagnosed with iliac wing fractures about two weeks ago, likely pathologic, he follows at outpatient with Dr. Bourgeois, Orthopedics. Nonsurgical conservative management was recommended. Since then, patient has been getting around with a wheelchair and walker intermittently. Unfortunately, he had a fall. For that reason, he came in to the ED for further evaluation along with generalized weakness. Initial workup in the ED, including lumbar spine CT as well as hip x-ray, the results are noted above. Patient was subsequently admitted. His COVID came back positive. However, he is completely asymptomatic. He has been tested a couple of times in the last two weeks, and it was negative. Patient and his to request to retest. The result is pending at the time of discharge. His pain is well controlled. Patient was started on aggressive bowel regimen. He has several bowel movements. Unfortunately, his symptoms may be related to the bony metastasis of his spine, he had bilateral lower extremity weakness. At this time, he will be discharged to swing bed for further rehab and physical therapy. Patient was advised to follow up with his oncologist for ongoing management. His overall prognosis is quite poor. At this time, patient is stable to make transitions to swing bed. It should be noted that his repeat COVID test is pending at the time of discharge. Patient remained asymptomatic throughout his hospital stay with regard to his COVID positive test. DISPOSITION: The patient is stable to discharge to swing bed for further rehab and physical therapy. ACTIVITY: As tolerated. DIET: Cardiac diet. FOLLOWUP CARE: Patient is to follow with his PCP, orthopedics, as well as his oncologist for ongoing management of his metastatic lung cancer. PHYSICAL EXAMINATION: VITAL SIGNS: Temperature is 98.0, pulse 97, respiratory rate 20, he is saturating 95% on room air, and blood pressure is 118/78. GENERAL APPEARANCE: Patient is alert and oriented x3 with normal affect. HEENT: Normocephalic and atraumatic. Mucous membranes moist. NECK: Supple. No lymphadenopathy. No JVD. CARDIOVASCULAR: Regular rate and rhythm. S1 and S2 noted. No murmur. PULMONOLOGY: Clear to auscultation bilaterally. ABDOMEN: Soft, nontender, and nondistended. Positive bowel sounds. MUSCULOSKELETAL: Positive for 1+ edema bilaterally. NEUROLOGIC: Cranial nerves 2 through 12 are grossly intact. Patient has bilateral lower extremity weakness, 1/5 strength. SKIN: No rash. NEUROLOGIC: Patient is alert and oriented x3 with normal affect. DISCHARGE MEDICATION: 1. [place] 10/325 mg one tablet q.4 p.r.n. for pain. 2. Avodart 0.5 mg p.o. daily. 3. Lipitor 20 mg p.o. daily. 4. Multivitamin supplement one capsule p.o. daily. 5. Maxzide 37.5 mg-25 mg capsule one capsule p.o. daily. 6. Vitamin D3 supplement. 7. Metoprolol succinate 50 mg p.o. daily. It should be noted that he is no longer on blood thinner, he was previously on Eliquis for stroke prophylaxis. However, this was discontinued by his oncologist given the metastasis to the brain with surrounding vasogenic edema. Thank you for allowing us to participate in this patient's care. Job ID: [id number]
[2020-05-16 15:02] LABS: SARS-CoV-2 MS2 Positive; SARS-CoV-2 N Gene Negative; SARS-CoV-2 S Gene Negative; SARS-CoV-2 by NAA Not Detected (NotDetected); SARS-CoV-2 orf1ab Negative
== END 2020-05-15 18:37 | disposition swing bed (61) | DRG 542 ==
LOC: ERS 10:28 → ONC 15:46 → T4-B 05-12 18:42 → OBSVTOIN 05-13 13:43
PROVIDERS: ADMIT Internal Medicine; ATTEND Internal Medicine
PROC: 8E0ZXY6 Isolation (ICD-10-PCS; principal; 2020-05-13)
DX: C79.51 Secondary malignant neoplasm of bone (principal); U07.1 COVID-19; G93.6 Cerebral edema; M84.454A Pathological fracture, pelvis, initial encounter for fracture; C34.90 Malignant neoplasm of unspecified part of unspecified bronchus or lung; C79.31 Secondary malignant neoplasm of brain; I48.0 Paroxysmal atrial fibrillation; K59.00 Constipation, unspecified; Z79.899 Other long term (current) drug therapy
CPT/HCPCS: 36415; 70450; 72131; 72170; 74018; 74022; 80048; 80053; 81003; 82550; 83690; 83880; 84484; 85025; 87086; 87635; 93005; 96372; 96374; 96376; G0378; J1650; J2270; U0003

== ENCOUNTER 2020-08-01 11:02 | Inpatient (IN) | payer MEDICARE ==
[~2020-08-01 11:02] MED LIST: Iopamidol-370 76% 500 ML 1 ML ONE
[2020-08-01 11:42] LABS: #Eosinphils 0.1 thou/uL (0.0-0.7); #Lymphocytes 0.4 thou/uL (1.20-3.40); #Monocytes 0.6 thou/uL (0.11-0.59); #Neutrophils 5.4 thou/uL (1.40-6.50); %Eosinophils 0.9 % (0.0-10.0); %Monocytes 9.1 % (0.0-10.0); Hemoglobin 6.9 g/dL (14.0-18.0); Mean Corpuscular Hemoglobin 27.1 pg (27.0-31.0); Mean Corpuscular Volume 87.4 fL (78.0-98.0); Mean Platelet Volume 6.9 fL (7.4-10.4); Platelet Count 263 thou/uL (130-400); RBC Distribution Width 16.6 % (11.5-14.5); Red Blood Cell (RBC) Count 2.54 mill/uL (4.70-6.10); White Blood Cell (WBC) Count 6.5 thou/uL (4.8-10.8)
--- NOTE | 2020-08-01 11:53 | RAD ---
EXAM: CHEST ONE VIEW HISTORY: Bed sore. Paraplegic. Reported metastatic disease. COMPARISON: 06/13/2020 FINDINGS: Dual lead left subclavian cardiac pacemaking device remains in place. Cardiac silhouette does appear enlarged. Pleural and parenchymal changes are present at the left lung base. There was elevation left hemidiaphragm prior exam. Left hemidiaphragm is not well discerned on the current study. Finding s may be related to left pleural effusion and atelectasis. Superimposed pneumonia in the region of the lingula and left lung base cannot be entirely excluded. Right lung remains clear. There is a meta llic density seen in a right paramediastinal location which was not present on prior exam. This is difficult to further localize on this exam but could potentially be related to overlying artifact. No other interval change. IMPRESSION: 1. Pleural and parenchymal changes left lung base which may represent left pleural effusion and atele ctasis. Superimposed pneumonia left lung base cannot be excluded. 2. Metallic density right paramediastinal location not present on prior exam. This could potentially be related to overlying artifact, but clinical correlation is recommended.
[2020-08-01 12:03] LABS: ALT (SGPT) 7 U/L (8-55); AST (SGOT) 7 U/L (5-34); Albumin 2.1 g/dL (3.4-4.8); Alkaline Phosphatase 106 U/L (40-110); Anion Gap 15 mmol/L (10-20); BUN (Urea Nitrogen) 22 mg/dL (8.4-25.7); Bilirubin, Total 0.4 mg/dL (0.2-1.2); Calc. Creatinine Clearance 0 mL/min (70-130); Calcium 7.6 mg/dL (7.8-10.44); Carbon Dioxide 25 mmol/L (23-31); Chloride 100 mmol/L (98-107); Globulin 2.6 g/dL (2.4-3.5); Glucose 94 mg/dL (83-110); Potassium 4.6 mmol/L (3.5-5.1); Protein, Total 4.7 g/dL (5.8-8.1); Sodium 135 mmol/L (136-145)
--- NOTE | 2020-08-01 12:46 | CT ---
CT Pelvis W Con History: Bedsores Comparison: Pelvis radiograph April 2020. CT pelvis April 2020. Findings: Layering calcific debris within the urinary bladder. Indwelling Kinney catheter. Healing right ilial wing fracture through a soft tissue mass appears also sclerosis of the fracture f ragment from a metastasis. New left ilium metastatic focus axial image 15. Small metastatic focus intertrochanteric portion left femur. Large soft tissue wound over the buttocks with myositis of the bilateral gluteus niels muscles. Gas and infectious debris abuts the sacrum with erosion of the coccyx. There is also involvement of the left inferior pubic ramus and left ischium. This has markedly progressed from the prior examinati on. Erosive changes of the levator ani muscles. Dense presacral soft tissue scar. Impression: 1. Healing right ileal fracture through a metastatic focus. 2. New left ileal and left femoral metastasis. 3. Large decubitus ulcer involving the right and left buttock with infectious myositis of the bilater al gluteus niels muscles, levator ani muscles, and left abductor musculature with gas extending into the medial left thigh distal to the field of view indicating underlying infectious pyomyositis. 4. Sacral coccygeal osteomyelitis through S5 with erosion and resorption of the coccyx. 5. Osteomyelitis of the left ischium and inferior pubic ramus.
[2020-08-01] MEDS ORDERED: Cefepime 2 GM VIAL ONE (14:24)
[2020-08-01] MEDS ORDERED: Vancomycin 1.5 GRAM/300 ML BAG 1.5 GM in Premix Bag 1 BAG IVPB SCH (14:30)
[2020-08-01] MEDS ORDERED: Acetaminophen 650 MG Suppository PR PRN (17:37)
[2020-08-01] MEDS ORDERED: Acetaminophen 325 MG TAB PO PRN (17:37)
[2020-08-01] MEDS ORDERED: Ondansetron ODT 4 MG TAB PO PRN (17:37)
[2020-08-01] MEDS ORDERED: Senokot S 8.6-50 MG TAB PO PRN (17:37)
[2020-08-01] MEDS ORDERED: HYDROcodone/Acetaminophen 5/325 mg Tablet PO PRN ×2 (17:37)
[2020-08-01] MEDS ORDERED: Morphine 4 MG/ML VIAL SLOW IVP PRN (17:37)
[2020-08-01] MEDS ORDERED: Guaifenesin DM 100-10/5 ML UDCUP PO PRN (17:37)
[2020-08-01] MEDS ORDERED: Ondansetron PF 4 MG/2 ML Vial IVP PRN (17:37)
--- NOTE | 2020-08-01 18:15 | HP ---
PRIMARY CARE PHYSICIAN: Leroy Zapata MD PRIMARY ONCOLOGIST: Dr. Rosales. CHIEF COMPLAINT: Sacral decubitus ulcer. HISTORY OF PRESENT ILLNESS: This is a 74-year-old white male with a known history of metastatic lung cancer, metastatic to the bone and the brain. The patient was last seen here in April 2020 for deconditioning and bilateral pathologic pelvic fractures. He was discharged to [facility] bed. They did not feel that he was getting the care he needed there according to the , and so he was transferred to [facility]. He was in there for a week or two, was started on new chemotherapy agent, possibly immunotherapy. He did develop a sacral decubitus ulcer at some point during his stay either at [facility] or at [facility]. The patient was discharged from [facility] to inpatient rehab at [facility] in May and was there until the end of June. Still has this persistent sacral decubitus ulcer. He was cared for at home by his , but became today too much for her to care for and that she noticed a large amount of pus draining from the sacral ulcer, and so called an ambulance and he was brought into the emergency room. In the ER, he was found to have a stage IV decubitus ulcer down to the bone with large amounts of pus and necrotic material, and so he is being admitted for that. He also had a CT scan of the pelvis, which showed the infection down to the bone along with healed fractures, but also new metastatic lesions. The patient also notes that since his stay in [facility], he became completely paralyzed from the waist down and does not have any feeling from the waist down. He also notes he was having severe back pains up until very recently, so he did not go in to get repeat scans at [facility]. However, about a week or so ago, he had a sudden crack in his back and all the pain resolved and has not had pain in his back since then. He is not sure exactly what happened. REVIEW OF SYSTEMS: CONSTITUTIONAL: No fevers. No chills. EYES: No double vision. No blurred vision. ENT: No congestion, drainage, or sore throat. He and his note that he has a very weak voice and has had some trouble swallowing as well recently and has been able to eat very little over the last 1 to 2 weeks. CARDIOVASCULAR: No chest pain. No palpitations or racing heart. PULMONARY: No coughing, wheezing, or shortness of breath. GASTROINTESTINAL: No abdominal pain. No nausea or vomiting. He had a little bit of constipation, but his was able to give medicine and had a soft bowel movement. GENITOURINARY: The patient is incontinent of the urine. He does have a Kinney in place, which has been draining well per the . PAST MEDICAL HISTORY: 1. Metastatic lung cancer, metastatic to the bone and the brain. 2. History of atrial fibrillation with heart block and a pacemaker placed. 3. Rectal cancer back more than 10 years ago, status post surgery and chemotherapy. 4. Hypertension. 5. COVID positive on May 11 without symptoms. 6. Pathologic fractures of the iliac crest. 7. Hyperlipidemia. 8. Spinal cord compression with paraplegia. 9. History of multiple bilateral pulmonary emboli and deep venous thrombosis, off Eliquis since he developed a brain metastasis. Has been recommended to have an IVC filter in the past. PAST SURGICAL HISTORY: 1. Pacemaker placement. 2. Gamma knife. 3. Low anterior resection in 2002 for rectal cancer. SOCIAL HISTORY: No tobacco use. Previously drinks socially about weekly. No illicit drug use. Lives at home with his who is his medical power of research attorney. He is a do not attempt resuscitation. FAMILY HISTORY: No significant family medical history. ALLERGIES: NO KNOWN DRUG ALLERGIES. CURRENT MEDICATIONS: 1. Atorvastatin 20 mg at night. 2. Dutasteride 0.5 mg daily. 3. Triamterene/hydrochlorothiazide 37.5/25 mg 1 capsule daily. 4. Metoprolol succinate 50 mg daily. 5. Vitamin D3 2000 units daily. 6. Hydrocodone 10/325 mg 1 tablet every 4 hours p.r.n. 7. Multivitamin daily. 8. Glucosamine chondroitin Plus 1 cap daily. PHYSICAL EXAMINATION: VITAL SIGNS: Blood pressure 109/92, pulse 117, respirations 18, temperature 98.0, O2 saturation 98% on room air. GENERAL: This is a well-developed, but cachectic, elderly white male, who appears very weak, but in no acute distress. HEENT: Pupils equal, round, and reactive to light. Oropharynx with dry mucous membranes. NECK: Supple. No lymphadenopathy. No thyroid nodules or enlargement. No JVD. HEART: Regular rate and rhythm. No murmurs, rubs, or gallops. LUNGS: Clear to auscultation bilaterally. No wheezes, crackles, or rhonchi. ABDOMEN: Soft, obese, nontender to palpation. Normoactive bowel sounds. No hepatosplenomegaly or other masses. EXTREMITIES: No clubbing, cyanosis, or edema. He does have significant edema to bilateral lower extremities, 2+ pitting. SKIN: The patient has a large stage IV sacral decubitus ulcer. NEUROLOGIC: The patient is unable to feel or move anything below his waist. He has no movement in his reflexes of the lower extremities. He is able to move his upper extremities, but he has generalized weakness. He has a very weak voice, possibly slight left facial droop, otherwise nonfocal exam. PSYCHIATRIC: Alert, oriented x3. He appears tired and depressed. LABORATORY DATA: CBC with a normal white blood cell count, hemoglobin of 6.9, hematocrit 22.2, platelet count 263. Complete metabolic panel is notable for a sodium of 135, calcium of 7.6, ALT of 7, and albumin of 2.1 and a total serum protein of 4.7. The rest was normal. Lactic acid was negative x1. Chest x-ray: I did review the chest x-ray done in the emergency room along with the radiologist's report. It shows some pleural-parenchymal changes in the left lung base, which may represent left pleural effusion, atelectasis, cannot exclude pneumonia. Also with metallic density in the right paramediastinal location, not present on prior exam, could be an overlying artifact. CT of the pelvis compared to April of 2020 showing healing right ilial fracture through metastatic focus and a new left ilial and left femoral metastasis, a large decubitus ulcer involving the right and left buttock with infectious myositis of the bilateral gluteal niels muscles, levator ani muscles, and left adductor musculature with gas extending into the medial left thigh distal to the field of view. Also with sacral coccygeal osteomyelitis through S5 with erosion and resorption of the coccyx and osteomyelitis of the left ischium and inferior pubic ramus. ASSESSMENT: 1. Stage IV decubitus ulcer with bony erosion and osteomyelitis. The patient has received vancomycin and cefepime in the emergency room. We will continue these in the hospital. We will consult General Surgery. Given the patient's malnutrition, he is not a great surgical candidate for anything besides a basic I and D. I am skeptical about his ability to heal from this. I did discuss this with the patient and his along with the advancement of metastatic foci, and they are considering the possibility of moving onto hospice should Dr. Rosales agree. I will have Wound Care consulted, and Dr. Kaufman will be consulted in the morning. 2. Metastatic lung cancer to bone and brain, appears to be having spread in spite of immunotherapy from [facility]. We will consult Dr. Rosales and consider options of therapy versus moving onto hospice. 3. Hypertension. Resume home medications. 4. Acute anemia, likely a combination of malnutrition and possible blood loss from the infected ulcer. The patient is getting a unit of packed red blood cells in the emergency room. We will follow the hemoglobin after that. 5. Deep venous thrombosis prophylaxis. The patient has a history of DVT and PE. We will put the patient on prophylactic dose Lovenox if possible. He already has DVTs in his lower extremities given his bilateral significant edema. However, at this point, I do not know that he is a candidate for full-dose anticoagulation given his low hemoglobin and overall poor prognosis, and I do not know that he would be a candidate for an IVC filter at this point either. We will defer decision to further work that up; workup of his lower extremity swelling until a decision is made about if he is going to go on hospice. 6. Gastrointestinal prophylaxis. The patient is on Pepcid twice a day. 7. Code status: The patient is a do not attempt resuscitation. Should he be incapacitated, his would be his medical decision maker. Job ID: [id number]
[2020-08-01 19:15] VITALS: BMI 29.1
[2020-08-01] MEDS ORDERED: Vancomycin 1 GM in Premix Bag 1 BAG IVPB SCH (21:00)
[2020-08-01] MEDS: Famotidine 20 MG TAB PO SCH (21:29)
[2020-08-01] MEDS: D5 1/2 NS w/20 mEq KCL 1,000 ML IV SCH (21:29)
[2020-08-02] MEDS: Cefepime 2 GM in Sodium Chloride 0.9% 100 ML IVPB SCH ×3 (03:09→20:35)
[2020-08-02] MEDS: Vancomycin HCl 1.75 GM in Sodium Chloride 0.9% 500 ML IVPB SCH ×2 (05:00→17:06)
[2020-08-02 05:34] LABS: #Eosinphils 0.1 thou/uL (0.0-0.7); #Lymphocytes 0.5 thou/uL (1.20-3.40); #Monocytes 0.6 thou/uL (0.11-0.59); #Neutrophils 3.7 thou/uL (1.40-6.50); %Basophils 0.2 % (0.0-1.0); %Eosinophils 1.3 % (0.0-10.0); %Lymphocytes 10.2 % (21.0-51.0); %Monocytes 11.5 % (0.0-10.0); %Neutrophils 76.8 % (42.0-75.0); Hemoglobin 6.9 g/dL (14.0-18.0); Mean Corpuscular HGB CONC 31.5 g/dL (32.0-36.0); Mean Corpuscular Hemoglobin 27.6 pg (27.0-31.0); Mean Corpuscular Volume 87.8 fL (78.0-98.0); Mean Platelet Volume 7.3 fL (7.4-10.4); Platelet Count 205 thou/uL (130-400); RBC Distribution Width 15.8 % (11.5-14.5); White Blood Cell (WBC) Count 4.9 thou/uL (4.8-10.8)
[2020-08-02 06:34] LABS: Anion Gap 13 mmol/L (10-20); BUN (Urea Nitrogen) 19 mg/dL (8.4-25.7); Calc. Creatinine Clearance 139 mL/min (70-130); Calcium 7.4 mg/dL (7.8-10.44); Carbon Dioxide 22 mmol/L (23-31); Chloride 103 mmol/L (98-107); Glucose 78 mg/dL (83-110); Potassium 4.6 mmol/L (3.5-5.1); Sodium 133 mmol/L (136-145)
[2020-08-02] MEDS ORDERED: Triamterene/Hydrochlorothiazide 37.5 mg/25 mg Tablet PO SCH (09:00)
[2020-08-02] MEDS: Famotidine 20 MG TAB PO SCH ×2 (09:35→20:35)
[2020-08-02] MEDS: Dutasteride 0.5 MG CAP PO SCH (09:36)
[2020-08-02] MEDS: Atorvastatin Calcium 20 MG TAB PO SCH (09:36)
[2020-08-02] MEDS: Cholecalciferol 1,000 UNITS (25 MCG) TAB PO SCH (09:36)
[2020-08-02] MEDS: Multivit, Therapeutic 1 TAB PO SCH (09:36)
[2020-08-02] MEDS: Enoxaparin Sodium 40 MG/0.4 ML SYRINGE SC SCH (09:37)
[2020-08-02] MEDS: Polyethylene Glycol 3350 17 GM Packet PO SCH (09:37)
--- NOTE | 2020-08-02 10:39 | PDOC.HOSPP ---
- Subjective Encounter Date: 08/02/20 Encounter Time: 07:30 Subjective: Patient seen and examined bedside today, no overnight event, no new complaint, patient has no change in hemoglobin despite giving 1 unit of blood transfusion, his blood pressure running lower side, but patient is asymptomatic. - Objective Vital Signs & Weight: Vital Signs (12 hours) Temp Pulse Resp BP Pulse Ox 08/02/20 09:47 101 H 90/60 08/02/20 07:31 97.5 F L 114 H 22 H 97/65 96 08/02/20 04:00 97.5 F L 97 18 93/58 L 94 L Weight Weight 226 lb 14.4 oz I&O: 08/01/20 08/02/20 08/03/20 06:59 06:59 06:59 Intake Total 440 Output Total 400 Balance 40 Result Diagrams: 08/02/20 05:14 08/02/20 05:14 Radiology Reviewed by me: Yes Hospitalist ROS - Review of Systems Constitutional: denies: fever, chills, sweats, weakness, malaise, other Respiratory: denies: cough, dry, shortness of breath, hemoptysis, SOB with excertion, pleuritic pain, sputum, wheezing, other Cardiovascular: denies: chest pain, palpitations, orthopnea, paroxysmal noc. dyspnea, edema, light headedness, other Gastrointestinal: denies: nausea, vomiting, abdominal pain, diarrhea, constipation, melena, hematochezia, other Genitourinary: denies: dysuria, frequency, incontinence, hematuria, retention, other Musculoskeletal: denies: neck pain, shoulder pain, arm pain, back pain, hand pain, leg pain, foot pain, other - Medication Medications: Active Medications Generic Name Dose Route Start Last Admin Trade Name Freq PRN Reason Stop Dose Admin Atorvastatin Calcium 20 mg 08/02/20 09:00 08/02/20 09:36 Atorvastatin Calcium 20 Mg Tab PO 20 mg DAILY SHEA Administration Cholecalciferol 2,000 units 08/02/20 09:00 08/02/20 09:36 Cholecalciferol 1,000 Units (25 Mcg) Tab PO 2,000 units DAILY SHEA Administration Dutasteride 0.5 mg 08/02/20 09:00 08/02/20 09:36 Dutasteride 0.5 Mg Cap PO 0.5 mg DAILY SHEA Administration Enoxaparin Sodium 40 mg 08/02/20 09:00 08/02/20 09:37 Enoxaparin Sodium 40 Mg/0.4 Ml Syringe SC Not Given 09 SHEA Famotidine 20 mg 08/01/20 21:00 08/02/20 09:35 Famotidine 20 Mg Tab PO 20 mg BID SHEA Administration Potassium Chloride/Dextrose/Sod Cl 1,000 mls @ 50 mls/hr 08/01/20 17:37 08/01/20 21:29 D5 1/2 Ns W/20 Meq Kcl IV 1,000 mls .Q20H SHEA Administration Cefepime HCl 2 gm/ Sodium 100 mls @ 200 mls/hr 08/02/20 02:00 08/02/20 03:09 Chloride IVPB 100 mls 0200,1400 SHEA Administration Vancomycin HCl 1.75 gm/ Sodium 500 mls @ 250 mls/hr 08/02/20 04:00 08/02/20 05:00 Chloride IVPB 500 mls 0400,1600 SHEA Administration Multivitamins 1 tab 08/02/20 09:00 08/02/20 09:36 Multivit, Therapeutic 1 Tab PO 1 tab DAILY SHEA Administration Polyethylene Glycol 17 gm 08/02/20 09:00 08/02/20 09:37 Polyethylene Glycol 3350 17 Gm Packet PO Not Given DAILY SHEA - Exam General Appearance: NAD, awake alert Eye: PERRL, anicteric sclera ENT: normocephalic atraumatic, no oropharyngeal lesions Neck: supple, symmetric, no JVD, no thyromegaly Heart: RRR, no murmur, no gallops, no rubs Respiratory: CTAB, no wheezes, no rales, no ronchi Gastrointestinal: soft, non-tender, non-distended, normal bowel sounds Extremities: no cyanosis, no clubbing Skin: normal turgor, no lesions Neurological - other findings: Paraplegia Psychiatric: normal affect, normal behavior Hosp A/P - Plan old records reviewed/req, continue antibiotics, DVT proph w/lovenox Infected decubitus ulcer right and left buttock with pyomyositis Osteomyelitis of sacrococcyx as well as left ischium and inferior pubic ramus Anemia of chronic disease Hyponatremia Paraplegia due to spinal cord compression Metastatic lung cancer with metastasis to bone and brain History of A. fib with AV block required pacemaker Hypertension but currently low blood pressure History of PE pulmonary embolism Dyslipidemia Plan General surgery has been consulted for possible evaluation for surgical debridement of infected decubitus ulcer, Oncology has been consulted for metastatic lung cancer We will hold on Toprol-XL and triamterene with hydrochlorothiazide because of relatively low blood pressure His hemoglobin has not responded to 1 unit of transfusion so we will transfuse 1 unit of PRBC more than we will repeat labs tomorrow Continue cefepime and vancomycin
[2020-08-02] MEDS ORDERED: Bisacodyl 10 MG SUPP PR PRN (11:48)
[2020-08-02] MEDS ORDERED: Temazepam 15 MG CAP PO PRN (11:48)
[2020-08-02] MEDS ORDERED: Loratadine 10 MG TAB PO PRN (11:48)
[2020-08-02] MEDS ORDERED: Labetalol HCl 100 MG/20 ML VIAL SLOW IVP PRN (11:48)
[2020-08-02] MEDS ORDERED: Diabetic Tussin 200 MG/10 ML UDCUP PO PRN (11:48)
[2020-08-02] MEDS ORDERED: HYDROcodone/Acetaminophen 10/325 mg Tablet PO PRN (11:48)
[2020-08-02] MEDS ORDERED: Sodium Chloride 0.65% Nasal 44 ML BOT EA NARE PRN (11:48)
[2020-08-02] MEDS ORDERED: Calcium Carbonate 500 MG ChewTAB PO PRN (11:48)
[2020-08-02] MEDS ORDERED: Loperamide HCl 2 MG CAP PO PRN (11:48)
[2020-08-02] MEDS ORDERED: Cepastat Lozenges 1 LOZ PO PRN (11:48)
[2020-08-02] MEDS ORDERED: Sodium Chloride 0.9% 500 ML IV SCH (13:45)
[2020-08-02] MEDS ORDERED: Metoprolol Tartrate 25 MG TAB PO SCH ×2 (13:45)
[2020-08-02] MEDS: D5 1/2 NS w/20 mEq KCL 1,000 ML IV SCH (13:54)
[2020-08-02] MEDS ORDERED: Cefepime 2 GM in Sodium Chloride 0.9% 100 ML IVPB SCH (18:00)
[2020-08-02] MEDS: Metoprolol Tartrate 25 MG TAB PO SCH (20:37)
[2020-08-03 04:02] LABS: #Eosinphils 0.1 thou/uL (0.0-0.7); #Lymphocytes 0.5 thou/uL (1.20-3.40); #Monocytes 0.5 thou/uL (0.11-0.59); #Neutrophils 3.2 thou/uL (1.40-6.50); %Basophils 0.3 % (0.0-1.0); %Eosinophils 1.8 % (0.0-10.0); %Lymphocytes 11.4 % (21.0-51.0); %Monocytes 12.1 % (0.0-10.0); %Neutrophils 74.3 % (42.0-75.0); Hemoglobin 7.8 g/dL (14.0-18.0); Mean Corpuscular Hemoglobin 28.4 pg (27.0-31.0); Mean Corpuscular Volume 88.6 fL (78.0-98.0); Mean Platelet Volume 8.2 fL (7.4-10.4); Platelet Count 209 thou/uL (130-400); RBC Distribution Width 15.7 % (11.5-14.5); Red Blood Cell (RBC) Count 2.73 mill/uL (4.70-6.10); White Blood Cell (WBC) Count 4.3 thou/uL (4.8-10.8)
[2020-08-03 04:17] LABS: Vancomycin, Trough 27.8 ug/mL
[2020-08-03 04:19] LABS: ALT (SGPT) Less than 7 U/L (8-55); AST (SGOT) 9 U/L (5-34); Albumin 1.7 g/dL (3.4-4.8); Alkaline Phosphatase 81 U/L (40-110); Anion Gap 11 mmol/L (10-20); BUN (Urea Nitrogen) 15 mg/dL (8.4-25.7); Bilirubin, Total 0.3 mg/dL (0.2-1.2); Calc. Creatinine Clearance 157 mL/min (70-130); Calcium 7.2 mg/dL (7.8-10.44); Carbon Dioxide 21 mmol/L (23-31); Chloride 106 mmol/L (98-107); Globulin 2.5 g/dL (2.4-3.5); Glucose 93 mg/dL (83-110); Potassium 3.9 mmol/L (3.5-5.1); Protein, Total 4.2 g/dL (5.8-8.1); Sodium 134 mmol/L (136-145)
[2020-08-03] MEDS: Vancomycin HCl 1.75 GM in Sodium Chloride 0.9% 500 ML IVPB SCH (05:00)
[2020-08-03] MEDS: Cefepime 2 GM in Sodium Chloride 0.9% 100 ML IVPB SCH ×2 (09:16→21:41)
[2020-08-03] MEDS: Dutasteride 0.5 MG CAP PO SCH (09:17)
[2020-08-03] MEDS: Senokot 8.6 MG TAB PO SCH (09:17)
[2020-08-03] MEDS: Atorvastatin Calcium 20 MG TAB PO SCH (09:17)
[2020-08-03] MEDS: Saccharomyces boulardii 250 MG CAP PO SCH (09:17)
[2020-08-03] MEDS: Metoprolol Tartrate 25 MG TAB PO SCH ×2 (09:17→21:41)
[2020-08-03] MEDS: Cholecalciferol 1,000 UNITS (25 MCG) TAB PO SCH (09:18)
[2020-08-03] MEDS: Famotidine 20 MG TAB PO SCH ×2 (09:18→21:41)
[2020-08-03] MEDS: Enoxaparin Sodium 40 MG/0.4 ML SYRINGE SC SCH (09:18)
[2020-08-03] MEDS: Multivit, Therapeutic 1 TAB PO SCH (09:18)
[2020-08-03] MEDS: Polyethylene Glycol 3350 17 GM Packet PO SCH (09:18)
[2020-08-03] MEDS: Docusate Sodium 100 MG/10 ML UDCUP PO SCH (09:19)
--- NOTE | 2020-08-03 10:38 | PDOC.HOSPP ---
- Subjective Encounter Date: 08/03/20 Encounter Time: 09:00 Subjective: Patient seen and examined bedside today, patient is completely asymptomatic, I spoke with the patient's Leonie on phone, updated about plan of care, - Objective Vital Signs & Weight: Vital Signs (12 hours) Temp Pulse Resp BP BP Pulse Ox 08/03/20 08:00 97.7 F 105 H 18 94/64 97 08/03/20 04:00 98.0 F 59 L 16 99/59 L 92 L 08/03/20 00:00 97.4 F L 103 H 18 94/59 L 93 L Weight Admit Weight 226 lb 14.4 oz Weight 226 lb 14.4 oz I&O: 08/02/20 08/03/20 08/04/20 06:59 06:59 06:59 Intake Total 440 0 Output Total 400 Balance 40 0 Result Diagrams: 08/03/20 03:52 08/03/20 03:52 Hospitalist ROS - Review of Systems Constitutional: reports: weakness. denies: fever, chills, sweats, malaise, other Respiratory: denies: cough, dry, shortness of breath, hemoptysis, SOB with excertion, pleuritic pain, sputum, wheezing, other Cardiovascular: denies: chest pain, palpitations, orthopnea, paroxysmal noc. dyspnea, edema, light headedness, other Gastrointestinal: denies: nausea, vomiting, abdominal pain, diarrhea, constipation, melena, hematochezia, other Genitourinary: denies: dysuria, frequency, incontinence, hematuria, retention, other Musculoskeletal: denies: neck pain, shoulder pain, arm pain, back pain, hand pain, leg pain, foot pain, other - Medication Medications: Active Medications Generic Name Dose Route Start Last Admin Trade Name Freq PRN Reason Stop Dose Admin Atorvastatin Calcium 20 mg 08/02/20 09:00 08/03/20 09:17 Atorvastatin Calcium 20 Mg Tab PO 20 mg DAILY SHEA Administration Cholecalciferol 2,000 units 08/02/20 09:00 08/03/20 09:18 Cholecalciferol 1,000 Units (25 Mcg) Tab PO 2,000 units DAILY SHEA Administration Docusate Sodium 100 mg 08/03/20 09:00 08/03/20 09:19 Docusate Sodium 100 Mg/10 Ml Udcup PO Not Given DAILY SHEA Dutasteride 0.5 mg 08/02/20 09:00 08/03/20 09:17 Dutasteride 0.5 Mg Cap PO 0.5 mg DAILY SHEA Administration Enoxaparin Sodium 40 mg 08/02/20 09:00 08/03/20 09:18 Enoxaparin Sodium 40 Mg/0.4 Ml Syringe SC Not Given 0900 SHEA Famotidine 20 mg 08/01/20 21:00 08/03/20 09:18 Famotidine 20 Mg Tab PO 20 mg BID SHEA Administration Potassium Chloride/Dextrose/Sod Cl 1,000 mls @ 50 mls/hr 08/01/20 17:37 08/02/20 13:54 D5 1/2 Ns W/20 Meq Kcl IV Not Given .Q20H SHEA Cefepime HCl 2 gm/ Sodium 100 mls @ 200 mls/hr 08/02/20 21:00 08/03/20 09:16 Chloride IVPB 100 mls 0900,2100 SHEA Administration Metoprolol Tartrate 25 mg 08/02/20 21:00 08/03/20 09:17 Metoprolol Tartrate 25 Mg Tab PO 25 mg BID SHEA Administration Multivitamins 1 tab 08/02/20 09:00 08/03/20 09:18 Multivit, Therapeutic 1 Tab PO 1 tab DAILY SHEA Administration Polyethylene Glycol 17 gm 08/02/20 09:00 08/03/20 09:18 Polyethylene Glycol 3350 17 Gm Packet PO Not Given DAILY SHEA Saccharomyces Boulardii 250 mg 08/03/20 09:00 08/03/20 09:17 Saccharomyces Boulardii 250 Mg Cap PO 250 mg DAILY SHEA Administration Senna 1 tab 08/03/20 09:00 08/03/20 09:17 Senokot 8.6 Mg Tab PO Not Given DAILY SHEA - Exam General Appearance: NAD, awake alert Eye: PERRL, anicteric sclera ENT: normocephalic atraumatic, no oropharyngeal lesions Neck: supple, symmetric, no JVD, no thyromegaly Heart: RRR, no murmur, no gallops, no rubs Heart - other findings: Tachycardia Respiratory: no wheezes, no rales, no ronchi Gastrointestinal: soft, non-tender, non-distended, normal bowel sounds Extremities: no edema Skin: normal turgor Skin - other findings: Please see wound care team note and picture for his decubitus ulcer Neurological - other findings: Patient has paraplegia Musculoskeletal: normal tone, normal strength Psychiatric: normal affect, normal behavior, A&O x 3 Hosp A/P - Plan old records reviewed/req, plan discussed w/ family, continue antibiotics, school social worker, DVT proph w/lovenox Infected decubitus ulcer right and left buttock with pyomyositis Osteomyelitis of sacrococcyx as well as left ischium and inferior pubic ramus Symptomatic anemia s/p 2 unit transfusion Hyponatremia Hypotension Paraplegia due to spinal cord compression Metastatic lung cancer with metastasis to bone and brain History of A. fib with AV block required pacemaker Hypertension but currently low blood pressure History of PE pulmonary embolism Dyslipidemia Plan General surgery has been consulted, recommendation pending Today I will consult infectious disease as patient has underlying osteomyelitis and he may need a long-term antibiotic therapy upon discharge Continue wound care Continue IV fluid Continue empiric cefepime and vancomycin Plan of care updated to patient's Medication reviewed and continue for symptomatic and supportive care Continue nutritional support Because of his advanced decubitus ulcer, will hold on physical therapy for now
[2020-08-03] MEDS: D5 1/2 NS w/20 mEq KCL 1,000 ML IV SCH (10:58)
--- NOTE | 2020-08-03 11:11 | CON ---
DATE OF CONSULTATION: 08/02/2020 SURGEON: Dr. Kaufman. HISTORY OF PRESENT ILLNESS: The patient is a 74-year-old male, who presented to the emergency department yesterday with a large sacral stage IV decubitus ulcer. The patient has a history of metastatic lung cancer with METS to the bone and brain. He also has lesions in his spine causing him to become a paraplegic. Previously receiving treatment at [facility], which appears to have not improved his cancer treatment. He was recently at a fpc facility and/or acute inpatient rehab facility at which time his ulcer became worse. He was ultimately discharged back home. He is now readmitted to the hospital. He is hypotensive and tachycardic at the time of our evaluation. The patient's primary team had ordered fluids and blood. He was awake and alert. Mentation was normal. Patient's is at bedside. We did discuss with them at length the reason for his very aggressive or his very significant sacral decubitus ulcer and how this happened. We discussed also with them treatment options. At the time of our evaluation, the patient had no complaint. He was receiving blood and fluid products. REVIEW OF SYSTEMS: All additional 10-point review of systems negative except as indicated above. PAST MEDICAL HISTORY: Metastatic lung cancer with metastasis to the bone and brain, history of AFib, rectal cancer 10 years ago, hypertension, COVID positive in April, now resolved; fracture of the iliac crest that was pathologic, hyperlipidemia, spinal cord compression with paraplegia bilaterally, pulmonary emboli, DVT. PAST SURGICAL HISTORY: Pacemaker placement, gamma knife low anterior resection in 2012 of rectal cancer. SOCIAL HISTORY: The patient does not use any tobacco products. He is previously a drinker, but does not drink any alcohol anymore. There is no history of illicit drug use. He lives at home with his who is at the bedside. FAMILY HISTORY: No significant family history. ALLERGIES: NO KNOWN DRUG ALLERGIES. MEDICATIONS: 1. Atorvastatin. 2. Bactrim. 3. Metoprolol. 4. Vitamin D3. 5. Dutasteride. 6. [place] 10. 7. Multivitamins. 8. Glucosamine. PHYSICAL EXAMINATION: GENERAL: Well-appearing elderly male, sitting up in bed with no signs of acute distress. PULMONARY: Equal chest rise and fall. Clear breath sounds bilaterally. No signs of acute respiratory distress. CARDIAC: Tachycardic, but regular rhythm. GI: Soft, nontender, nondistended. EXTREMITIES: 2+ pulses in all extremities. Gross motor and sensation intact in bilateral upper extremities with none in the bilateral lower extremities. SACRUM: The patient has a very large sacral decubitus ulcer, which is graded at stage IV. NEUROLOGIC: GCS was 15. LABORATORY FINDINGS: White count 4.9, hemoglobin 6.9, hematocrit 22.0, platelets 205. Sodium 133, potassium 4.6, chloride 103, bicarb 22, BUN 19, creatinine 0.67. Lactic acid 1.6. ASSESSMENT: Stage IV sacral decubitus ulcer. RECOMMENDATIONS: Dr. Kaufman and I had extensive conversation with the patient and his who was at the bedside. Notes were recorded by the family. The patient's nurse was also at bedside. We essentially discussed at length how the patient got such a large and significant sacral decubitus ulcer. We did discuss with them 3 possible treatment options. The first is to if was to be chosen would include excision of debridement of the sacral ulcer down to the bone. The area would be so extensive that there would not be an option for a flap and grafting later in the future. Wound Care would be involved in their management. At that time, the patient would also receive a diverting loop colostomy in order to assure the patient's wound remains clean and uninfected. Second option is to perform local wound care measures only and that the patient be discharged home with Hospice. We did discuss with them that if this option was chosen that the patient was at risk for developing sepsis and could ultimately of complications related to that. Third option is to perform no wound care and the patient be discharged home with Hospice with the same risk of sepsis. Dr. Kaufman spent a significant amount of time answering questions, ensuring the patient and the patient's family understood all of the options. The plan for now is for them to think about it and let us know their decision. The Trauma Team will continue round on the patient in the meantime. This patient was seen and evaluated by Dr. Kaufman and myself this afternoon during rounds. Job ID: [id number]
[2020-08-03 14:40] LABS: Vancomycin, Random 20.5 ug/mL (See Comment)
[2020-08-03] MEDS: Vancomycin HCl 1.25 GM in Sodium Chloride 0.9% 250 ML 250 ML IVPB SCH (16:53)
--- NOTE | 2020-08-04 00:20 | CON ---
DATE OF CONSULTATION: 08/03/2020 REASON FOR CONSULTATION: Stage IV sacral decubitus ulcer with osteomyelitis and myositis. HISTORY OF PRESENT ILLNESS: A 74-year-old who has a history of atrial fibrillation, hyperlipidemia, and prior colon cancer, who was admitted in January with shortness of breath and dizziness. He was discharged with a diagnosis of 2-1 atrioventricular block; atrial fibrillation, on Eliquis. In the intervening period between January and April, he was diagnosed with lung cancer with mets to brain and spine and he presented on April feeling weak and unable to transfer. X-ray showed comminuted fractures of right iliac wing and moderate lumbar spondylosis and possible 2 cm osteolytic lesions in L3 vertebral body. At that time, his SARS-CoV-2 test PCR was positive, but the patient was asymptomatic. He was transferred to swing bed for rehabilitation and subsequently developed flaccid paralysis of lower extremity, probably from spinal metastases with lack of sensory perception up to umbilical region. He had been treated at [facility], but he had a CT of brain which showed a left frontal lobe intraparenchymal mass with vasogenic edema, so his anticoagulation was discontinued. At that time, he developed neurogenic bladder with requirement for placement of catheter. Looks like he was transferred to [facility] at that time and now he presents because of a large stage IV decubitus ulcer, most of it is unstageable actually. There is purulence drainage and so initial findings included BP 156, heart rate 112, temperature 98, O2 saturation 98%. He is oriented. There is a very large necrotic decubitus ulcer in his gluteal and presacral region, most of it was unstageable, but some elements of it had obvious penetration to the bone. A pelvic CT demonstrated healing right ilial fracture, large decubitus ulcer, myositis of bilateral gluteus niels, left abductor musculature with gas extending into the medial left thigh and line infectious pyomyositis, sacrococcygeal osteomyelitis through S5 with erosion, resorption of coccyx, osteomyelitis of left ischium and inferior pubic ramus. Currently, Mr. Vallejo is eating dinner. He does not appear in distress. He is chronically ill appearing. His is with him. He denies any headaches. No visual symptoms. No sore throat, odynophagia, or dysphagia. No cough. No chest pain or dyspnea. He has no sensation below the umbilicus. He is Kinney catheterized. PAST MEDICAL HISTORY: Coronary artery disease; atrial fibrillation; rectal cancer, treated with surgery and chemotherapy in remission; recent COVID-19 diagnosis; history of pulmonary emboli; DVT, off Eliquis; recently identified lung cancer with mets to bone and brain; has not had an IVC filter placed; has had gamma knife for treatment of the brain lesion; pacemaker placement. SOCIAL HISTORY: , has a DNR status. Never smoker. FAMILY HISTORY: Noncontributory. ALLERGIES: NONE. CURRENT MEDICATIONS: 1. Tylenol. 2. Lipitor. 3. Tums. 4. Cefepime. 5. Vitamin D. 6. Avodart. 7. Lovenox. 8. Pepcid. 9. Robitussin. 10. [place]. 11. Claritin. 12. Lopressor. 13. Morphine. 14. Zofran. 15. MiraLAX. 16. Florastor. 17. Vancomycin. PHYSICAL EXAMINATION: VITAL SIGNS: He has been afebrile since admission. BP 90/50, pulse 112, respirations 20, O2 saturation 97%. SKIN: Shows an extensive area of skin necrosis along the presacral region towards the gluteal area, right and left side. There are shallower and smaller ulcers. There is an extension of this ulcer towards the ischium on the left side. The entire surface is necrotic and unstageable in most of the surface. Has a Kinney catheter in place. There is erythema surrounding this area. Maceration of the skin. GENERAL: He is awake, oriented, follows commands. No lymphadenopathy. HEENT: Ocular movements conjugate. Pale conjunctivae. Oral cavity with still numerous teeth in place, fairly decent shape. NECK: Supple. No jugular vein distention. LUNGS: Symmetric. Clear breath sounds. HEART: S1, S2. Regular rate. No S3 or S4. ABDOMEN: Soft. Not distended or tender. Kinney catheter in place. NEUROLOGIC: Has dense paraplegia without sensation. Cognition is preserved. LABORATORY DATA: Sodium 134, creatinine 0.59, and albumin 1.7. White cell count 4.3, hemoglobin 7.8, platelets 209 with 74% neutrophils. Dr. Kaufman has evaluated the patient and offered different options, but family and patient have decided against any aggressive interventions such as debridement of the necrotic areas or diversion with colostomy. It looks like they have decided for hospice placement. I would advise discontinuation of antimicrobial therapy since it would be futile without aggressive surgical debridement and colostomy placement. Job ID: [id number]
[2020-08-04 06:12] LABS: #Eosinphils 0.1 thou/uL (0.0-0.7); #Lymphocytes 0.6 thou/uL (1.20-3.40); #Monocytes 0.7 thou/uL (0.11-0.59); #Neutrophils 4.4 thou/uL (1.40-6.50); %Basophils 0.2 % (0.0-1.0); %Eosinophils 1.3 % (0.0-10.0); %Lymphocytes 9.8 % (21.0-51.0); %Monocytes 11.5 % (0.0-10.0); %Neutrophils 77.1 % (42.0-75.0); Hemoglobin 7.9 g/dL (14.0-18.0); Mean Corpuscular HGB CONC 31.9 g/dL (32.0-36.0); Mean Corpuscular Volume 87.9 fL (78.0-98.0); Mean Platelet Volume 7.7 fL (7.4-10.4); Platelet Count 185 thou/uL (130-400); RBC Distribution Width 15.7 % (11.5-14.5); Red Blood Cell (RBC) Count 2.82 mill/uL (4.70-6.10); White Blood Cell (WBC) Count 5.7 thou/uL (4.8-10.8)
[2020-08-04] MEDS: Vancomycin HCl 1.25 GM in Sodium Chloride 0.9% 250 ML 250 ML IVPB SCH ×2 (06:31→16:59)
[2020-08-04 06:34] LABS: Anion Gap 10 mmol/L (10-20); BUN (Urea Nitrogen) 15 mg/dL (8.4-25.7); CRP (Inflammatory) 5.11 mg/dL (= or < 0.5); Calc. Creatinine Clearance 166 mL/min (70-130); Calcium 7.3 mg/dL (7.8-10.44); Carbon Dioxide 23 mmol/L (23-31); Chloride 106 mmol/L (98-107); Glucose 104 mg/dL (83-110); Potassium 3.8 mmol/L (3.5-5.1); Sodium 135 mmol/L (136-145)
--- NOTE | 2020-08-04 10:08 | PDOC.HOSPP ---
- Subjective Encounter Date: 08/04/20 Encounter Time: 08:55 Subjective: Patient seen and examined bedside today, no overnight event, no new complaint, - Objective Vital Signs & Weight: Vital Signs (12 hours) Temp Pulse Resp BP BP Pulse Ox 08/04/20 08:00 98.0 F 80 20 93/63 96 08/04/20 05:00 98.0 F 86 18 164/67 H 96 Weight Admit Weight 226 lb 14.4 oz Weight 226 lb 14.4 oz I&O: 08/03/20 08/04/20 08/05/20 06:59 06:59 06:59 Intake Total 0 600 Output Total 425 Balance 0 175 Result Diagrams: 08/04/20 06:00 08/04/20 06:00 Hospitalist ROS - Review of Systems Constitutional: denies: fever, chills, sweats, weakness, malaise, other ENT: denies: ear pain, ear discharge, nose pain, nose discharge, nose congestion, mouth pain, mouth swelling, throat pain, throat swelling, other Respiratory: denies: cough, dry, shortness of breath, hemoptysis, SOB with excertion, pleuritic pain, sputum, wheezing, other Cardiovascular: denies: chest pain, palpitations, orthopnea, paroxysmal noc. dyspnea, edema, light headedness, other Gastrointestinal: denies: nausea, vomiting, abdominal pain, diarrhea, constipation, melena, hematochezia, other Genitourinary: denies: dysuria, frequency, incontinence, hematuria, retention, other - Medication Medications: Active Medications Generic Name Dose Route Start Last Admin Trade Name Meg PRN Reason Stop Dose Admin Atorvastatin Calcium 20 mg 08/02/20 09:00 08/03/20 09:17 Atorvastatin Calcium 20 Mg Tab PO 20 mg DAILY SHEA Administration Cholecalciferol 2,000 units 08/02/20 09:00 08/03/20 09:18 Cholecalciferol 1,000 Units (25 Mcg) Tab PO 2,000 units DAILY SHEA Administration Docusate Sodium 100 mg 08/03/20 09:00 08/03/20 09:19 Docusate Sodium 100 Mg/10 Ml Udcup PO Not Given DAILY SHEA Dutasteride 0.5 mg 08/02/20 09:00 08/03/20 09:17 Dutasteride 0.5 Mg Cap PO 0.5 mg DAILY SHEA Administration Enoxaparin Sodium 40 mg 08/02/20 09:00 08/03/20 09:18 Enoxaparin Sodium 40 Mg/0.4 Ml Syringe SC Not Given 0900 SHEA Famotidine 20 mg 08/01/20 21:00 08/03/20 21:41 Famotidine 20 Mg Tab PO 20 mg BID SHEA Administration Potassium Chloride/Dextrose/Sod Cl 1,000 mls @ 50 mls/hr 08/01/20 17:37 08/03/20 10:58 D5 1/2 Ns W/20 Meq Kcl IV 1,000 mls .Q20H SHEA Administration Cefepime HCl 2 gm/ Sodium 100 mls @ 200 mls/hr 08/02/20 21:00 08/03/20 21:41 Chloride IVPB 100 mls 0900,2100 SHEA Administration Vancomycin HCl 1.25 gm/ Sodium 250 mls @ 166.667 mls/hr 08/03/20 16:00 08/04/20 06:31 Chloride IVPB 250 mls 0400,1600 SHEA Administration Metoprolol Tartrate 25 mg 08/02/20 21:00 08/03/20 21:41 Metoprolol Tartrate 25 Mg Tab PO 25 mg BID SHEA Administration Multivitamins 1 tab 08/02/20 09:00 08/03/20 09:18 Multivit, Therapeutic 1 Tab PO 1 tab DAILY SHEA Administration Polyethylene Glycol 17 gm 08/02/20 09:00 08/03/20 09:18 Polyethylene Glycol 3350 17 Gm Packet PO Not Given DAILY SHEA Saccharomyces Boulardii 250 mg 08/03/20 09:00 08/03/20 09:17 Saccharomyces Boulardii 250 Mg Cap PO 250 mg DAILY SHEA Administration Senna 1 tab 08/03/20 09:00 08/03/20 09:17 Senokot 8.6 Mg Tab PO Not Given DAILY SHEA - Exam General Appearance: NAD, awake alert Eye: PERRL, anicteric sclera ENT: normocephalic atraumatic, no oropharyngeal lesions Neck: supple, symmetric, no JVD, no thyromegaly Heart: RRR, no murmur, no gallops, no rubs Respiratory: no wheezes, no rales, no ronchi Gastrointestinal: soft, non-tender, non-distended, normal bowel sounds Skin - other findings: Please see wound care team note for description of wound Neurological - other findings: Paraplegia Psychiatric: normal affect, normal behavior Hosp A/P - Plan old records reviewed/req, continue antibiotics Infected decubitus ulcer right and left buttock with pyomyositis Osteomyelitis of sacrococcyx as well as left ischium and inferior pubic ramus Symptomatic anemia s/p 2 unit transfusion Hyponatremia Hypotension Paraplegia due to spinal cord compression Metastatic lung cancer with metastasis to bone and brain History of A. fib with AV block required pacemaker Hypertension but currently low blood pressure History of PE pulmonary embolism Dyslipidemia Plan General surgery given him option of incision and debridement, and to improve chances of healing recommended colostomy but patient and his are against of this decision, with antibiotic only patient has no chances of recovery, at this point unsure whether patient and his completely agreed with hospice decisio n, palliative care on the case, meanwhile we will continue with the cefepime and vancomycin, if patient and does not want any aggressive intervention then when patient and his decides about hospice then will discontinue antibiotic therapy and discharge him home with home hospice, continue wound care, nutritional support, gentle IV fluid, prognosis poor
[2020-08-04] MEDS: Dutasteride 0.5 MG CAP PO SCH (10:30)
[2020-08-04] MEDS: Cefepime 2 GM in Sodium Chloride 0.9% 100 ML IVPB SCH ×2 (10:30→20:52)
[2020-08-04] MEDS: Enoxaparin Sodium 40 MG/0.4 ML SYRINGE SC SCH (10:30)
[2020-08-04] MEDS: Saccharomyces boulardii 250 MG CAP PO SCH (10:31)
[2020-08-04] MEDS: Famotidine 20 MG TAB PO SCH ×2 (10:31→20:52)
[2020-08-04] MEDS: Cholecalciferol 1,000 UNITS (25 MCG) TAB PO SCH (10:31)
[2020-08-04] MEDS: Polyethylene Glycol 3350 17 GM Packet PO SCH ×2 (10:31→10:34)
[2020-08-04] MEDS: Atorvastatin Calcium 20 MG TAB PO SCH (10:31)
[2020-08-04] MEDS: Multivit, Therapeutic 1 TAB PO SCH (10:31)
[2020-08-04] MEDS: Senokot 8.6 MG TAB PO SCH ×2 (10:31→10:34)
[2020-08-04] MEDS: Metoprolol Tartrate 25 MG TAB PO SCH ×2 (10:32→20:53)
[2020-08-04] MEDS: Docusate Sodium 100 MG/10 ML UDCUP PO SCH ×2 (10:32→10:33)
[2020-08-04] MEDS: D5 1/2 NS w/20 mEq KCL 1,000 ML IV SCH (16:11)
--- NOTE | 2020-08-04 16:37 | PQF ---
CLINICAL DOCUMENTATION CLARIFICATION FORM: Dear Dr. LUKE GLEZ Date: 08-04-20 Please exercise your independent, professional judgment in responding to the clarification form. Clinical indicators are provided on the bottom of this form for your review. Please check appropriate box(es): [ x ] Protein Calorie Malnutrition: [ ] Mild [x ] Moderate [ ] Severe [ ] Other Malnutrition (please specify) [ ] Other diagnosis [ ] Unable to determine In addition, please specify: Present on Admission (POA): [x ] Yes [ ] No [ ] Unable to determine For continuity of documentation, please document condition throughout progress notes and discharge summary. Thank You. To be completed by CDI/Coding staff for physician review: CLINICAL INDICATORS - SIGNS / SYMPTOMS / LABS / RESULTS AND LOCATION IN MR: H&P: 08-01-20: DECONDITIONING, HAS HAD TROUBLE SWALLOWING WELL RECENTLY HAS BEEN ABLE TO EAT VERY LITTLE OVER THE LAST 1-2 WEEKS, CACHECTIC, GIVEN THE PATIENTS MALNUTRITION, ACUTE ANEMIA LIKELY A COMBINATION OF MALNUTRITION AND POSSIBLE BLOOD LOSS FROM INFECTED ULCER. HOPPER ATTENDANT CONSULT 08-02-20: moderate buccal and orbital fat pad wasting, moderate temporalis muscle wasting, estimated intake<25% of needs x 3 months, 7.4% weight loss x 3 months suggestive of moderate malnutrition in the context of chronic illness RISK FACTORS / RESULTS AND LOCATION IN MR: HOPPER ATTENDANT CONSULT 08-02-20: Metastatic lung cancer, metastatic to bone and brain, afib with heart block and pacemaker placed rectal cancer 10 years ago, HTN, asymptomatic COVID in April, HLD, spinal cord compression with paraplegia, PE and DVTs TREATMENT / RESULTS AND LOCATION IN MR: HOPPER ATTENDANT CONSULT 08-02-20: 1. Continue regular diet. 2. Recommend Ensure Enlive TID. Provide with ice cream per pt preferences and to add kcals. 3. Recommend Asael BID. 4. Recommend Mighty Shakes TID Moderate Malnutrition (in acute illness) Energy Intake: <75% of estimated energy requirement for > 7 days Weight Loss: 1-2%/1 week; 5%/ 1 month; 7.5%/3 months Other: mild body fat loss; mild muscle mass loss; mild fluid accumulation; Severe Malnutrition (in acute illness) Energy Intake: = 50% of estimated energy requirement for = 5 days Weight Loss: >2%/1 week; >5%/1 month; >7.5%/3 months Other: moderate body fat loss; moderate muscle mass loss; moderate- severe fluid accumulation; measurably reduced cigarette book maker strength Moderate Malnutrition (in chronic illness) Energy Intake: <75% of estimated energy requirement for =1 month Weight Loss: 5%/1 month; 7.5%/3 months; 10%/6 months; 20%/1 year Other: mild body fat loss; mild muscle mass loss; mild fluid accumulation Severe Malnutrition (in chronic illness) Energy Intake: =75% of estimated energy requirement for =1 month Weight Loss: >5%/1 month; >7.5%/3 months; >10%/6 months; >20%/1 year Other: severe body fat loss; severe muscle mass loss; severe fluid accumulation; measurably reduced cigarette book maker strength CDS Signature: Martha Skelton Phone #: [phone] Date: 08-04-20 This is a permanent part of the Medical Record [facility]
[2020-08-05 05:27] LABS: Vancomycin, Trough 24.7 ug/mL
[2020-08-05] MEDS: Vancomycin HCl 1.25 GM in Sodium Chloride 0.9% 250 ML 250 ML IVPB SCH (06:00)
[2020-08-05] MEDS: Enoxaparin Sodium 40 MG/0.4 ML SYRINGE SC SCH (10:12)
[2020-08-05] MEDS: Famotidine 20 MG TAB PO SCH ×2 (10:12→20:55)
[2020-08-05] MEDS: Saccharomyces boulardii 250 MG CAP PO SCH (10:12)
[2020-08-05] MEDS: Atorvastatin Calcium 20 MG TAB PO SCH (10:13)
[2020-08-05] MEDS: Multivit, Therapeutic 1 TAB PO SCH (10:13)
[2020-08-05] MEDS: Cholecalciferol 1,000 UNITS (25 MCG) TAB PO SCH (10:13)
[2020-08-05] MEDS: Dutasteride 0.5 MG CAP PO SCH (10:13)
[2020-08-05] MEDS: Docusate Sodium 100 MG/10 ML UDCUP PO SCH (10:14)
[2020-08-05] MEDS: Cefepime 2 GM in Sodium Chloride 0.9% 100 ML IVPB SCH ×2 (10:14→20:54)
[2020-08-05] MEDS: Polyethylene Glycol 3350 17 GM Packet PO SCH (10:15)
[2020-08-05] MEDS: Vancomycin 1 GM in Premix Bag 1 BAG IVPB SCH ×2 (10:15→20:57)
[2020-08-05] MEDS: Senokot 8.6 MG TAB PO SCH (10:15)
[2020-08-05] MEDS: Metoprolol Tartrate 25 MG TAB PO SCH ×2 (10:17→20:55)
[2020-08-05] MEDS: D5 1/2 NS w/20 mEq KCL 1,000 ML IV SCH (13:04)
--- NOTE | 2020-08-05 16:32 | PDOC.HOSPP ---
- Subjective Encounter Date: 08/05/20 Encounter Time: 16:30 Subjective: Mr. Vallejo was seen today in follow-up of decubitus ulcer. He does not have any new complaints. - Objective Vital Signs & Weight: Vital Signs (12 hours) Temp Pulse Resp BP BP Pulse Ox 08/05/20 16:08 96.8 F L 102 H 20 122/66 100 08/05/20 11:26 98.3 F 96 18 105/71 100 08/05/20 08:08 97.1 F L 89 18 106/72 100 08/05/20 08:00 100 Weight Admit Weight 226 lb 14.4 oz Weight 226 lb 14.4 oz I&O: 08/04/20 08/05/20 08/06/20 06:59 06:59 06:59 Intake Total 600 Output Total 425 Balance 175 Result Diagrams: 08/04/20 06:00 08/04/20 06:00 Hospitalist ROS - Medication Medications: Active Medications Generic Name Dose Route Start Last Admin Trade Name Freq PRN Reason Stop Dose Admin Atorvastatin Calcium 20 mg 08/02/20 09:00 08/05/20 10:13 Atorvastatin Calcium 20 Mg Tab PO 20 mg DAILY SHEA Administration Cholecalciferol 2,000 units 08/02/20 09:00 08/05/20 10:13 Cholecalciferol 1,000 Units (25 Mcg) Tab PO 2,000 units DAILY SHEA Administration Docusate Sodium 100 mg 08/03/20 09:00 08/05/20 10:14 Docusate Sodium 100 Mg/10 Ml Udcup PO Not Given DAILY SHEA Dutasteride 0.5 mg 08/02/20 09:00 08/05/20 10:13 Dutasteride 0.5 Mg Cap PO 0.5 mg DAILY SHEA Administration Enoxaparin Sodium 40 mg 08/02/20 09:00 08/05/20 10:12 Enoxaparin Sodium 40 Mg/0.4 Ml Syringe SC 40 mg 0900 SHEA Administration Famotidine 20 mg 08/01/20 21:00 08/05/20 10:12 Famotidine 20 Mg Tab PO 20 mg BID SHEA Administration Potassium Chloride/Dextrose/Sod Cl 1,000 mls @ 50 mls/hr 08/01/20 17:37 08/05/20 13:04 D5 1/2 Ns W/20 Meq Kcl IV Not Given .Q20H SHEA Cefepime HCl 2 gm/ Sodium 100 mls @ 200 mls/hr 08/02/20 21:00 08/05/20 10:14 Chloride IVPB 100 mls 0900,2099 SHEA Administration Vancomycin HCl 1 gm/ Device 200 mls @ 200 mls/hr 08/05/20 09:00 08/05/20 10:15 IVPB 200 mls 0900,2099 SHEA Administration Metoprolol Tartrate 25 mg 08/02/20 21:00 08/05/20 10:17 Metoprolol Tartrate 25 Mg Tab PO Not Given BID SHEA Multivitamins 1 tab 08/02/20 09:00 08/05/20 10:13 Multivit, Therapeutic 1 Tab PO 1 tab DAILY SHEA Administration Polyethylene Glycol 17 gm 08/02/20 09:00 08/05/20 10:15 Polyethylene Glycol 3350 17 Gm Packet PO Not Given DAILY SHEA Saccharomyces Boulardii 250 mg 08/03/20 09:00 08/05/20 10:12 Saccharomyces Boulardii 250 Mg Cap PO 250 mg DAILY SHEA Administration Senna 1 tab 08/03/20 09:00 08/05/20 10:15 Senokot 8.6 Mg Tab PO Not Given DAILY SHEA - Exam Eye: PERRL, anicteric sclera Heart: RRR, no murmur, no gallops, no rubs, normal peripheral pulses Respiratory: CTAB, no wheezes, no rales, no ronchi, normal chest expansion, no tachypnea, normal percussion Gastrointestinal: soft, non-tender, non-distended, normal bowel sounds, no palpable masses, no hepatomegaly Extremities: 2+ LE edema (sacral ulcer picture noted) Hosp A/P (1) Ulcer of sacral region, unstageable Code(s): L98.429 - NON-PRESSURE CHRONIC ULCER OF BACK WITH UNSPECIFIED SEVERITY Status: Acute (2) Protein-calorie malnutrition, severe Code(s): E43 - UNSPECIFIED SEVERE PROTEIN-CALORIE MALNUTRITION Status: Acute (3) Lung cancer metastatic to bone Code(s): C34.90 - MALIGNANT NEOPLASM OF UNSP PART OF UNSP BRONCHUS OR LUNG; C79.51 - SECONDARY MALIGNANT NEOPLASM OF BONE Status: Acute (4) Lung cancer metastatic to brain Code(s): C34.90 - MALIGNANT NEOPLASM OF UNSP PART OF UNSP BRONCHUS OR LUNG; C79.31 - SECONDARY MALIGNANT NEOPLASM OF BRAIN Status: Acute - Plan * Severe Sacral Ulcer- Unstageable with large black eschar- chart has been reviewed * Discussed with the patient and the patient's who was at bedside- plan will be to go home with Home Health with local wound care- then to transition to Hospice once he feels comfortable with going on Hospice * Will send him home with a few days of an oral antibiotic, and probiotic
[2020-08-06] MEDS: Cefepime 2 GM in Sodium Chloride 0.9% 100 ML IVPB SCH (08:11)
[2020-08-06] MEDS: Vancomycin 1 GM in Premix Bag 1 BAG IVPB SCH (08:11)
[2020-08-06] MEDS: Polyethylene Glycol 3350 17 GM Packet PO SCH (08:12)
[2020-08-06] MEDS: Cholecalciferol 1,000 UNITS (25 MCG) TAB PO SCH (08:12)
[2020-08-06] MEDS: Senokot 8.6 MG TAB PO SCH (08:12)
[2020-08-06] MEDS: Enoxaparin Sodium 40 MG/0.4 ML SYRINGE SC SCH (08:12)
[2020-08-06] MEDS: Famotidine 20 MG TAB PO SCH (08:12)
[2020-08-06] MEDS: Saccharomyces boulardii 250 MG CAP PO SCH (08:13)
[2020-08-06] MEDS: Atorvastatin Calcium 20 MG TAB PO SCH (08:13)
[2020-08-06] MEDS: Multivit, Therapeutic 1 TAB PO SCH (08:14)
[2020-08-06] MEDS: Metoprolol Tartrate 25 MG TAB PO SCH (08:14)
[2020-08-06] MEDS: Dutasteride 0.5 MG CAP PO SCH (08:14)
[2020-08-06] MEDS: Docusate Sodium 100 MG/10 ML UDCUP PO SCH (08:15)
[2020-08-06] MEDS: D5 1/2 NS w/20 mEq KCL 1,000 ML IV SCH (08:15)
[2020-08-06 11:10] VITALS: BP 114/76; TEMP 98.1
--- NOTE | 2020-08-06 11:17 | PDOC.HOSPP ---
- Subjective Encounter Date: 08/06/20 Encounter Time: 11:16 Subjective: Mr. Vallejo was seen today in follow-up of advanced decubitus ulcer. He does not have any complaints. - Objective Vital Signs & Weight: Vital Signs (12 hours) Temp Pulse Resp BP BP Pulse Ox 08/06/20 11:06 98.1 F 90 16 114/76 98 08/06/20 08:00 95 08/06/20 07:53 97.7 F 85 16 110/67 95 08/06/20 04:00 98.2 F 85 16 105/67 94 L 08/06/20 03:54 98.2 F 85 16 105/67 94 L 08/06/20 00:14 98.4 F 83 16 97/62 95 Weight Admit Weight 226 lb 14.4 oz Weight 226 lb 14.4 oz I&O: 08/05/20 08/06/20 08/07/20 06:59 06:59 06:59 Output Total 425 Balance -425 Result Diagrams: 08/04/20 06:00 08/04/20 06:00 Hospitalist ROS - Medication Medications: Active Medications Generic Name Dose Route Start Last Admin Trade Name Freq PRN Reason Stop Dose Admin Atorvastatin Calcium 20 mg 08/02/20 09:00 08/06/20 08:13 Atorvastatin Calcium 20 Mg Tab PO 20 mg DAILY SHEA Administration Cholecalciferol 2,000 units 08/02/20 09:00 08/06/20 08:12 Cholecalciferol 1,000 Units (25 Mcg) Tab PO 2,000 units DAILY SHEA Administration Docusate Sodium 100 mg 08/03/20 09:00 08/06/20 08:15 Docusate Sodium 100 Mg/10 Ml Udcup PO Not Given DAILY SHEA Dutasteride 0.5 mg 08/02/20 09:00 08/06/20 08:14 Dutasteride 0.5 Mg Cap PO 0.5 mg DAILY SHEA Administration Enoxaparin Sodium 40 mg 08/02/20 09:00 08/06/20 08:12 Enoxaparin Sodium 40 Mg/0.4 Ml Syringe SC 40 mg 0900 SHEA Administration Famotidine 20 mg 08/01/20 21:00 08/06/20 08:12 Famotidine 20 Mg Tab PO 20 mg BID SHEA Administration Potassium Chloride/Dextrose/Sod Cl 1,000 mls @ 50 mls/hr 12/15/20 17:37 08/06/20 08:15 D5 1/2 Ns W/20 Meq Kcl IV 1,000 mls .Q20H SHEA Administration Cefepime HCl 2 gm/ Sodium 100 mls @ 200 mls/hr 08/02/20 21:00 08/06/20 08:11 Chloride IVPB 100 mls 09,2100 SHEA Administration Vancomycin HCl 1 gm/ Device 200 mls @ 200 mls/hr 08/05/20 09:00 08/06/20 08:11 IVPB 200 mls 0900,2099 SHEA Administration Metoprolol Tartrate 25 mg 08/02/20 21:00 08/06/20 08:14 Metoprolol Tartrate 25 Mg Tab PO Not Given BID SHEA Multivitamins 1 tab 08/02/20 09:00 08/06/20 08:14 Multivit, Therapeutic 1 Tab PO 1 tab DAILY SHEA Administration Polyethylene Glycol 17 gm 08/02/20 09:00 08/06/20 08:12 Polyethylene Glycol 3350 17 Gm Packet PO Not Given DAILY SHEA Saccharomyces Boulardii 250 mg 08/03/20 09:00 08/06/20 08:13 Saccharomyces Boulardii 250 Mg Cap PO 250 mg DAILY SHEA Administration Senna 1 tab 08/03/20 09:00 08/06/20 08:12 Senokot 8.6 Mg Tab PO Not Given DAILY SHEA - Exam Eye: PERRL, anicteric sclera Heart: RRR, no murmur, no gallops, no rubs, normal peripheral pulses Respiratory: CTAB, no wheezes, no rales, no ronchi, normal chest expansion, no tachypnea Gastrointestinal: soft, non-tender, non-distended, normal bowel sounds, no palpable masses, no hepatomegaly Extremities: 2+ LE edema Hosp A/P (1) Ulcer of sacral region, unstageable Code(s): L98.429 - NON-PRESSURE CHRONIC ULCER OF BACK WITH UNSPECIFIED SEVERITY Status: Acute (2) Protein-calorie malnutrition, severe Code(s): E43 - UNSPECIFIED SEVERE PROTEIN-CALORIE MALNUTRITION Status: Acute (3) Lung cancer metastatic to bone Code(s): C34.90 - MALIGNANT NEOPLASM OF UNSP PART OF UNSP BRONCHUS OR LUNG; C79.51 - SECONDARY MALIGNANT NEOPLASM OF BONE Status: Acute (4) Lung cancer metastatic to brain Code(s): C34.90 - MALIGNANT NEOPLASM OF UNSP PART OF UNSP BRONCHUS OR LUNG; C79.31 - SECONDARY MALIGNANT NEOPLASM OF BRAIN Status: Acute - Plan * Severe Sacral Ulcer- Unstageable with large black eschar- * Plan is for discharge home today once transporation is arranged * Will send him home with a few days of an oral antibiotic, and probiotic
--- NOTE | 2020-08-06 17:08 | PDOC.DS.DS ---
Provider - Provider Date of Admission: 08/01/20 14:13 Date of Discharge: 08/06/20 Admitting Provider: Franklin Cerda DO Consultations: General Surgery, Infectious Disease Primary Care Physician: Leroy Zapata MD Course - Hospital Course Hospital Course: Mr. 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 He recently received chemotherapy at [facility]. He was then transferred to the [facility]. Somewhere during this time he developed a sacral decubitus ulcer. He was being cared for at home by his and home health was coming to the home 3 times a week in order to help with wound care. His felt that the wounds were getting progressively worse instead of better and she felt that the degree of severity of the wound was beyond her ability to manage at home, for this reason she brought her to the hospital for further evaluation. It was noted that he had a very large sacral decubitus with a large black eschar. He was evaluated by general surgery by Dr. Mandeep carrion. He felt that the patient would require extensive sharp debridement as well as a diverting colostomy in order for the area to heal. Given the patient's severe deconditioning as well as prior history of diastolic heart failure and metastatic cancer the patient opted not to have any type of surgical intervention. He tells me he had been told that he would not survive surgery in the past and this also contributed to his decision making. He had originally been started on broad-spectrum IV antibiotics and with consultation with Dr. Muñoz it was felt that if the patient did not undergo surgical debridement the healing of the decubitus would be fu tile and as such he recommended discontinuing all antibiotics. The patient was seen by the palliative care team during his hospital stay. Discussions were made with regards to potentially transitioning him to hospice in the outpatient setting. The patient was agreeable to hospice but he was not quite ready to do it at the time of our discussion in the hospital. He said he preferred to go home with his current home health agency give it a day or 2 and then decided to transition to hospice in a couple of days. Therefore we made the decision to discharge him on an oral antibiotic in the interim while he makes his decision to transition to hospice with the knowledge that this would be an adequate for any long-term treatment of the decubitus ulcer. We also discussed once again the likely inability of the wound to heal without surgical debridement. We also discussed that he is at some very high risk for surgery and potentially could do even worse with a surgical intervention and conse rvative measures might actually give him a better quality of life and even an extended life albeit likely short. The patient was discharged home on 08/06/2020 in stable condition Pertinent Studies: CT scan of the pelvis Resuscitation Status: 08/01/20 16:30 Resuscitation Status Routine Resuscitation Status: DNAR: NO Resuscitation Discussed with: Patient and (MPOA) - Labs Lab Results: 08/04/20 06:00 08/04/20 06:00 Microbiology - Entire Visit 08/01/20 11:29 Venous blood - Left Arm Blood Culture - Final NO GROWTH IN 5 DAYS 08/01/20 11:38 Venous blood - Right Arm Blood Culture - Final NO GROWTH IN 5 DAYS - Physical Exam Vitals: Vital Signs (12 hours) Temp Pulse Resp BP Pulse Ox 08/06/20 11:06 98.1 F 90 16 114/76 98 08/06/20 08:00 95 08/06/20 07:53 97.7 F 85 16 110/67 95 Weight Admit Weight 226 lb 14.4 oz Weight 226 lb 14.4 oz Physical Exam: The patient was seen and examined on the day of discharge. Problem - Problem (1) Ulcer of sacral region, unstageable Code(s): L98.429 - NON-PRESSURE CHRONIC ULCER OF BACK WITH UNSPECIFIED SEVERITY Status: Acute (2) Protein-calorie malnutrition, severe Code(s): E43 - UNSPECIFIED SEVERE PROTEIN-CALORIE MALNUTRITION Status: Acute (3) Lung cancer metastatic to bone Code(s): C34.90 - MALIGNANT NEOPLASM OF UNSP PART OF UNSP BRONCHUS OR LUNG; C79.51 - SECONDARY MALIGNANT NEOPLASM OF BONE Status: Acute (4) Lung cancer metastatic to brain Code(s): C34.90 - MALIGNANT NEOPLASM OF UNSP PART OF UNSP BRONCHUS OR LUNG; C79.31 - SECONDARY MALIGNANT NEOPLASM OF BRAIN Status: Acute Plan - Discharge Medications Prescriptions: Amoxicillin/Potassium Clav [Augmentin 875-125 Tablet] 1 each PO BID #10 tablet Saccharomyces boulardii [Florastor] 250 mg PO DAILY #30 cap Zinc Sulfate [Zinc-220] 220 mg PO DAILY #30 capsule Home Medications: Medication Instructions Recorded Confirmed Type Atorvastatin Calcium [Lipitor] 20 mg PO DAILY 02/01/13 08/02/20 History Dutasteride [Avodart] 0.5 mg PO DAILY 02/01/13 08/02/20 History Cholecalciferol (Vitamin D3) 2,000 unit PO DAILY 01/26/20 08/02/20 History [Vitamin D] Multivitamin [Multivitamins] 1 cap PO DAILY 01/26/20 08/02/20 History Metoprolol Succinate 50 mg PO DAILY #30 tab.er.24h 01/28/20 08/02/20 Rx Triamterene/Hydrochlorothiazid 1 capsule PO DAILY 05/11/20 08/02/20 History [Triamterene-Hctz 37.5-25 mg Cp] HYDROcodone/Acetaminophen [[place] 1 tab PO Q4HR PRN 05/12/20 08/02/20 History 10-325 Tablet] Docusate Sodium [Colace Liquid] 100 mg PO DAILY udcup 05/18/20 08/02/20 Rx Morphine 4 mg SLOW IVP Q6H PRN vial 05/18/20 08/02/20 Rx Polyethylene Glycol 3350 [Miralax] 17 gm PO DAILY pk 05/18/20 08/02/20 Rx Sennosides [Senokot] 1 tab PO DAILY tab 05/18/20 08/02/20 Rx Bisacodyl [Dulcolax] 10 mg ND DAILYPRN PRN 08/02/20 08/02/20 History Amoxicillin/Potassium Clav 1 each PO BID #10 tablet 08/05/20 Rx [Augmentin 875-125 Tablet] Saccharomyces boulardii [Florastor] 250 mg PO DAILY #30 cap 08/05/20 Rx Zinc Sulfate [Zinc-220] 220 mg PO DAILY #30 capsule 08/06/20 Rx Allergies: No Known Allergies Allergy (Verified 05/15/20 19:16) - Discharge Instructions Activity:: Activity as Tolerated Nourishment:: Regular Diet - Follow up Plan Referrals: [facility], [place] [Other] (Referral has been sent to [facility] and they will contact you to resume your home health services for wound care management.) eLroy Zpaata MD [Primary Care Provider] - Disposition: HOME Quality - Care Measures CORE MEASURES:: N/A
== END 2020-08-06 12:45 | disposition home health service (06) | DRG 539 ==
LOC: ERS 11:02 → EDBD 11:02 → T4-B 14:13
PROVIDERS: ADMIT Family Medicine; ATTEND Internal Medicine
PROC: 30233N1 Transfusion of Nonautologous Red Blood Cells into Peripheral Vein, Percutaneous Approach (ICD-10-PCS; principal; 2020-08-01)
DX: M46.28 Osteomyelitis of vertebra, sacral and sacrococcygeal region (principal); L89.154 Pressure ulcer of sacral region, stage 4; E43 Unspecified severe protein-calorie malnutrition; C34.90 Malignant neoplasm of unspecified part of unspecified bronchus or lung; C79.51 Secondary malignant neoplasm of bone; C79.31 Secondary malignant neoplasm of brain; G95.20 Unspecified cord compression; G82.20 Paraplegia, unspecified; M60.08 Infective myositis, other site; E87.1 Hypo-osmolality and hyponatremia; I50.32 Chronic diastolic (congestive) heart failure; M86.18 Other acute osteomyelitis, other site; Z66 Do not resuscitate; Z20.828 Contact with and (suspected) exposure to other viral communicable diseases; I48.91 Unspecified atrial fibrillation; E78.5 Hyperlipidemia, unspecified; I11.0 Hypertensive heart disease with heart failure; D63.8 Anemia in other chronic diseases classified elsewhere; Z53.29 Procedure and treatment not carried out because of patient's decision for other reasons; Z86.711 Personal history of pulmonary embolism; Z86.718 Personal history of other venous thrombosis and embolism; Z95.0 Presence of cardiac pacemaker; Z85.038 Personal history of other malignant neoplasm of large intestine; Z79.899 Other long term (current) drug therapy; Z68.29 Body mass index [BMI] 29.0-29.9, adult; Z79.891 Long term (current) use of opiate analgesic; Z92.21 Personal history of antineoplastic chemotherapy
CPT/HCPCS: 36415; 36430; 51702; 71045; 72193; 80048; 80053; 80202; 83605; 85025; 85652; 86140; 86850; 86900; 86901; 87040; 96365; 96367; J0692; J1650; J3370; J3480; J3490; J7030; J7050; P9016; Q9967

== ENCOUNTER 2020-10-11 11:11 | Inpatient (IN) | payer MEDICARE ==
[2020-10-11 11:39] LABS: Hemoglobin 8.1 g/dL (14.0-18.0); Mean Corpuscular HGB CONC 31.1 g/dL (32.0-36.0); Mean Corpuscular Hemoglobin 26.3 pg (27.0-31.0); Mean Corpuscular Volume 84.5 fL (78.0-98.0); Mean Platelet Volume 6.8 fL (7.4-10.4); Platelet Count 365 thou/uL (130-400); RBC Distribution Width 16.2 % (11.5-14.5); Red Blood Cell (RBC) Count 3.08 mill/uL (4.70-6.10); White Blood Cell (WBC) Count 11.2 thou/uL (4.8-10.8)
--- NOTE | 2020-10-11 11:43 | RAD ---
EXAM: Single view of the chest HISTORY: Nausea and vomiting and upper abdominal pain COMPARISON: 08/01/2020 FINDINGS: Single view of the chest shows an enlarged but stable cardiomediastinal silhouette. The pa cemaker is unchanged in position. There appears be a small left pleural effusion with adjacent atelectasis. Degenerative changes are seen in the spine. IMPRESSION: Cardiomegaly and small left pleural effusion.
[2020-10-11] MEDS ORDERED: Cefepime 2 GM VIAL ONE (11:46)
[2020-10-11] MEDS ORDERED: Ondansetron PF 4 MG/2 ML Vial ONE (11:46)
[2020-10-11] MEDS ORDERED: Fentanyl 100 MCG/2 ML VIAL ONE ×2 (11:57→13:41)
[2020-10-11 12:02] LABS: ALT (SGPT) Less than 7 U/L (8-55); AST (SGOT) 11 U/L (5-34); Albumin 2.3 g/dL (3.4-4.8); Alkaline Phosphatase 131 U/L (40-110); Anion Gap 13 mmol/L (10-20); BUN (Urea Nitrogen) 30 mg/dL (8.4-25.7); Bilirubin, Total 0.3 mg/dL (0.2-1.2); Calc. Creatinine Clearance 0 mL/min (70-130); Calcium 8.8 mg/dL (7.8-10.44); Carbon Dioxide 27 mmol/L (23-31); Chloride 96 mmol/L (98-107); Globulin 3.8 g/dL (2.4-3.5); Glucose 90 mg/dL (83-110); Potassium 4.4 mmol/L (3.5-5.1); Protein, Total 6.1 g/dL (5.8-8.1); Sodium 132 mmol/L (136-145)
[2020-10-11 12:10] LABS: Band 16 % (5-11); Eosinophils 4 % (0-10); Lymphocytes 7 % (21-51); MDiff Complete? YES; Monocytes 7 % (0-10); Neutrophil 66 % (42-75); Platelet Morphology Comment Appears Adequate; Polychromasia SLIGHT = 2-3 cells (100X) (0-2/hpf)
--- NOTE | 2020-10-11 12:51 | CT ---
CT abdomen and pelvis with IV contrast HISTORY: Abdomen pain. Metastatic lung cancer. FINDINGS: Small left and minimal right pleural fluid with associated atelectasis at the lung bases. A 2.4 cm x 2.3 cm focus of loculated pleural fluid is present at the right lower posterior costovertebral angle. A 2.3 cm ill-defined low density mass within the dome of the right liver lobe a nterior segment is now apparent. A 1.3 cm low density mass immediately inferior. A 1.2 cm mass within the left liver lobe. Cysts arise from the cortex of each kidney, 1.8 cm on the right and 2.3 cm on the left. No evidence o f urinary tract obstruction. Kinney catheter decompresses the urinary bladder. A 1.0 cm lipoma is noted within the fourth portion of the duodenum. No evidence of bowel obstruction or inflammation. The superiormost images show mixed sclerotic/lytic destruction of the T7 vertebral body with retropul nirali of the compressed vertebral body into the anterior aspect of the central spinal canal. No significant collapse of the L3 vertebral body is associated with an enlarging, mixed sclerotic lytic lesion. Healing fracture of the right iliac crest is again demonstrated. Postoperative changes of the presacral space with adjacent stranding in the fat. Severe ulceration ov er the sacrum/coccyx and the left fascial ramus, extending to the bone. IMPRESSION : No evidence of bowel obstruction or other acute intra-abdominal abnormality to explain pain. Significant interval worsening of metastatic disease, with new low density liver masses. Worsening me tastatic lesions of the T7 and L3 vertebrae, including at least partial collapse of the T7 vertebral body and compromise of the central spinal canal. Correlate clinically regarding central can al symptoms at the T7 level. Severe decubitus ulceration over the sacrum and right iliac crest. No deep soft tissue fluid collecti ons evident. Very small bilateral pleural effusions.
[2020-10-11 13:13] LABS: Bacteria/HPF None Seen HPF (None Seen); Bilirubin Negative (Negative); Blood, Urine 3+ (Negative); Calcium Oxalate Crystals Rare HPF (None Seen); Clarity Extra Turbid (Clear); Glucose, Urine (Dipstick) Normal (Negative); Ketone, Urine Negative (Negative); Leukocyte 500 Leu/uL (Negative); Nitrite 2+ (Negative); Protein, Urine (Dipstick) 50 mg/dL (Neg-Trace); RBC/HPF Greater than 50 HPF (0-3); Specific Gravity, Urine 1.043 (1.002-1.036); Squamous Epithelial None Seen HPF (0-3); Urobilinogen Normal mg/dL (Less than 2); WBC/HPF Greater than 50 HPF (0-3)
[2020-10-11] MEDS ORDERED: VANCOMYCIN 2 GRAM/400 ML BAG 2 GM in Premix Bag 1 BAG IVPB SCH (14:15)
[2020-10-11] MEDS ORDERED: Iopamidol-370 76% 500 ML 1 ML ONE (14:24)
--- NOTE | 2020-10-11 15:13 | PDOC.HHP ---
Hospitalist HPI Generalized weakness History of Present Illness: 74-year-old male who has metastatic cancer, who was brought to emergency room for upper abdominal pain for last several days, patient is taking chronic pain medication, patient has followed up at [facility] several times as well as cancer clinic, patient has been treated with gamma knife radiation for brain and radiation to back, he also completed chemotherapy, despite that patient has no improvement, patient is bedbound, currently patient is not on any treatment for his cancer, patient is DNR which was confirmed with the patient's bedside, Today patient was brought to emergency room for upper abdominal pain, no nausea vomiting diarrhea, no constipation, he had good bowel movement, no blood or melena or hematochezia, patient was not having fever but he was feeling generalized weak and chills, In emergency room patient had a chest x-ray which showed cardiomegaly and small left pleural effusion, subsequently patient had abdomen and pelvis CT scan which showed minimal bilateral pleural effusion with atelectasis of lung, loculated pleural fluid in the right lower lobe and low-density mass within right liver lobe as well as in left liver lobe, he has chronic indwelling Kinney catheter, patient has multiple worsening osteolytic lesion in vertebral body from T7-L3, patient has chronic paraplegia, patient also has severe decubitus ulceration without any obvious superinfection, In emergency room patient was hypotensive, he was given IV fluid and his blood pressure slightly improved, patient did not wanted to to do central line, he does not want any aggressive intervention, this was discussed with the patient's bedside and finally we decided to keep this patient in hospital for medical admission, ED Course: Patient is given vancomycin, cefepime, fentanyl, IV fluid and Zofran VITAL SIGNS FriOct 11, 2020 13:56 MARTY Cowan Madison Brooke BP: 86/37, Pulse: 102, Resp: 20, Pain: 4, O2 sat: 100 on (Room Air), Time: 10/11/2020 13:56. VITAL SIGNS FriOct 11, 2020 14:16 MARTY Cowan [place] Brooke BP: 82/40, MAP: 54, Pulse: 100, Resp: 20, Pain: 4, O2 sat: 98 on (Room Air), Time: 10/11/2020 14:16. VITAL SIGNS FriOct 11, 2020 14:28 MARTY Cowan Madison Brooke BP: 82/40, Pulse: 100, Resp: 20, Pain: 4, O2 sat: 100ra, Time: 10/11/2020 14:28. VITAL SIGNS FriOct 11, 2020 14:54 MARTY Gonzalez Jenifer BP: 85/45, MAP: 58, Pulse: 101, Resp: 22, O2 sat: 85 on (Room Air), Time: 10/11/2020 14:54. VITAL SIGNS FriOct 11, 2020 14:57 MARTY Gonzalez Jenifer O2 sat: 99 on (2L Oxygen), Time: 10/11/2020 14:57. VITAL SIGNS FriOct 11, 2020 15:03 MARTY Cowan Madison Brooke BP: 87/48, MAP: 61, Pulse: 99, Resp: 20, Temp: 98.7 (Oral), Pain: 3, O2 sat: 99 on (1L Oxygen), Time: 10/11/2020 15:03. VITAL SIGNS FriOct 11, 2020 15:09 MARTY Cowan Madison Brooke O2 sat: 98 on (Room Air), Time: 10/11/2020 Allergies/Adverse Reactions: Allergy/AdvReac Type Severity Reaction Status Date / Time No Known Allergies Allergy Verified 05/15/20 19:16 Home Medications: Medication Instructions Recorded Confirmed Type Atorvastatin Calcium [Lipitor] 20 mg PO DAILY 02/01/13 08/02/20 History Dutasteride [Avodart] 0.5 mg PO DAILY 02/01/13 08/02/20 History Cholecalciferol (Vitamin D3) 2,000 unit PO DAILY 01/26/20 08/02/20 History [Vitamin D] Multivitamin [Multivitamins] 1 cap PO DAILY 01/26/20 08/02/20 History Metoprolol Succinate 50 mg PO DAILY #30 tab.er.24h 01/28/20 08/02/20 Rx Triamterene/Hydrochlorothiazid 1 capsule PO DAILY 05/11/20 08/02/20 History [Triamterene-Hctz 37.5-25 mg Cp] HYDROcodone/Acetaminophen [[place] 1 tab PO Q4HR PRN 05/12/20 08/02/20 History 10-325 Tablet] Docusate Sodium [Colace Liquid] 100 mg PO DAILY udcup 05/18/20 08/02/20 Rx Morphine 4 mg SLOW IVP Q6H PRN vial 05/18/20 08/02/20 Rx Polyethylene Glycol 3350 [Miralax] 17 gm PO DAILY pk 05/18/20 08/02/20 Rx Sennosides [Senokot] 1 tab PO DAILY tab 05/18/20 08/02/20 Rx Bisacodyl [Dulcolax] 10 mg CO DAILYPRN PRN 08/02/20 08/02/20 History Amoxicillin/Potassium Clav 1 each PO BID #10 tablet 08/05/20 Rx [Augmentin 875-125 Tablet] Saccharomyces boulardii [Florastor] 250 mg PO DAILY #30 cap 08/05/20 Rx Zinc Sulfate [Zinc-220] 220 mg PO DAILY #30 capsule 08/06/20 Rx Past History: Past medical history Metastatic lung cancer with metastasis to brain and spine Atrial fibrillation Paraplegia Colon cancer History of CVA Hypertension Anemia of chronic disease Past surgical history Colon resection in 2002 Pacemaker Ablation Past psychiatric history Reviewed and negative Social history Patient lives at home with his , drinks alcohol occasionally, no drug abuse, no smoking Hospitalist HPI ROS Constitutional: reports: chills, weakness, malaise. denies: fever, sweats, other ENT: denies: ear pain, ear discharge, nose pain, nose discharge, nose congestion, mouth pain, mouth swelling, throat pain, throat swelling, other Respiratory: denies: cough, dry, shortness of breath, hemoptysis, SOB with excertion, pleuritic pain, sputum, wheezing, other Cardiovascular: denies: chest pain, palpitations, orthopnea, paroxysmal noc. dyspnea, edema, light headedness, other Gastrointestinal: reports: abdominal pain. denies: nausea, vomiting, diarrhea, constipation, melena, hematochezia, other Genitourinary: denies: dysuria, frequency, incontinence, hematuria, retention, other Musculoskeletal: denies: neck pain, shoulder pain, arm pain, back pain, hand pain, leg pain, foot pain, other Skin: denies: rash, lesions, star, bruising, other Neurological: reports: weakness, numbness. denies: incoordination, change in speech, confusion, seizures, other Hospitalist Exam General Appearance: NAD, awake alert, ill appearing General - other findings: Following commands Eye: PERRL, anicteric sclera ENT: normocephalic atraumatic, no oropharyngeal lesions, dry oral mucosa Neck: supple, symmetric, no JVD, no thyromegaly Heart: RRR, no murmur, no gallops, no rubs Respiratory: no wheezes, no rales, no ronchi Respiratory - other findings: Air entry reduced baseline Gastrointestinal: soft, non-tender, non-distended, normal bowel sounds, no palpable masses Gastrointestinal - other findings: Upper abdominal subjective discomfort Extremities: no clubbing, 1+ LE edema Skin: normal turgor, no lesions Neurological - other findings: Paraplegia, Kinney catheter in place Musculoskeletal: generalized weakness Psychiatric: normal affect, normal behavior Hospitalist Results Result Diagrams: 10/11/20 11:30 10/11/20 11:30 Lab results: Laboratory Last Values WBC 11.2 thou/uL (4.8-10.8) H 10/11/20 11:30 RBC 3.08 mill/uL (4.70-6.10) L 10/11/20 11:30 Hgb 8.1 g/dL (14.0-18.0) L 10/11/20 11:30 Hct 26.0 % (42.0-52.0) L 10/11/20 11:30 MCV 84.5 fL (78.0-98.0) 10/11/20 11:30 MCH 26.3 pg (27.0-31.0) L 10/11/20 11:30 MCHC 31.1 g/dL (32.0-36.0) L 10/11/20 11:30 RDW 16.2 % (11.5-14.5) H 10/11/20 11:30 Plt Count 365 thou/uL (130-400) 10/11/20 11:30 MPV 6.8 fL (7.4-10.4) L 10/11/20 11:30 Neutrophils % (Manual) 66 % (42-75) 10/11/20 11:30 Band Neuts % (Manual) 16 % (5-11) H 10/11/20 11:30 Lymphocytes % (Manual) 7 % (21-51) L 10/11/20 11:30 Monocytes % (Manual) 7 % (0-10) 10/11/20 11:30 Eosinophils % (Manual) 4 % (0-10) 10/11/20 11:30 Lymphocytes # Not Reportable 10/11/20 11:30 Plt Morphology Comment Appears Adequate 10/11/20 11:30 Polychromasia SLIGHT = 2-3 cells (100X) (0-2/hpf) 10/11/20 11:30 Sodium 132 mmol/L (136-145) L 10/11/20 11:30 Potassium 4.4 mmol/L (3.5-5.1) 10/11/20 11:30 Chloride 96 mmol/L (98-107) L 10/11/20 11:30 Carbon Dioxide 27 mmol/L (23-31) 10/11/20 11:30 Anion Gap 13 mmol/L (10-20) 10/11/20 11:30 BUN 30 mg/dL (8.4-25.7) H 10/11/20 11:30 Creatinine 1.29 mg/dL (0.7-1.3) 10/11/20 11:30 Estimated GFR (MDRD) 54 10/11/20 11:30 Glucose 90 mg/dL (83-110) 10/11/20 11:30 Lactic Acid 1.6 mmol/L (0.5-2.2) 10/11/20 11:40 Calcium 8.8 mg/dL (7.8-10.44) 10/11/20 11:30 Total Bilirubin 0.3 mg/dL (0.2-1.2) 10/11/20 11:30 AST 11 U/L (5-34) 10/11/20 11:30 ALT Less than 7 U/L (8-55) L 10/11/20 11:30 Alkaline Phosphatase 131 U/L (40-110) H 10/11/20 11:30 Serum Total Protein 6.1 g/dL (5.8-8.1) 10/11/20 11:30 Albumin 2.3 g/dL (3.4-4.8) L 10/11/20 11:30 Globulin 3.8 g/dL (2.4-3.5) H 10/11/20 11:30 Albumin/Globulin Ratio 0.6 g/dL (1.2-2.2) L 10/11/20 11:30 Urine Color Yellow (Yellow) 10/11/20 12:57 Urine Clarity Extra Turbid (Clear) A 10/11/20 12:57 Urine pH 5.0 (5.0-9.0) 10/11/20 12:57 Ur Specific [place] 1.043 (1.002-1.036) H 10/11/20 12:57 Urine Protein 50 mg/dL (Neg-Trace) A 10/11/20 12:57 Urine Glucose (UA) Normal mg/dL (Negative) 10/11/20 12:57 Urine Ketones Negative mg/dL (Negative) 10/11/20 12:57 Urine Blood 3+ (Negative) A 10/11/20 12:57 Urine Nitrite 2+ (Negative) A 10/11/20 12:57 Urine Bilirubin Negative (Negative) 10/11/20 12:57 Urine Urobilinogen Normal mg/dL (Less than 2) 10/11/20 12:57 Ur Leukocyte Esterase 500 Salima/uL (Negative) A 10/11/20 12:57 Urine RBC Greater than 50 HPF (0-3) A 10/11/20 12:57 Urine WBC Greater than 50 HPF (0-3) A 10/11/20 12:57 Ur Squamous Epith Cells None Seen HPF (0-3) 10/11/20 12:57 Calcium Oxalate Crystal Rare HPF (None Seen) A 10/11/20 12:57 Urine Bacteria None Seen HPF (None Seen) 10/11/20 12:57 Additional comment: , 12 lead EKG shows, sinus tachycardia, Rate (beats per minute): 104, with no ectopics, Conduction normal, ST segments normal, CT scan - Ab/Pelvis Status: image reviewed by me Additional Comments: IMPRESSION : No evidence of bowel obstruction or other acute intra-abdominal abnormality to explain pain. Significant interval worsening of metastatic disease, with new low density liver masses. Worsening me tastatic lesions of the T7 and L3 vertebrae, including at least partial collapse of the T7 vertebral body and compromise of the central spinal canal. Correlate clinically regarding central can al symptoms at the T7 level. Severe decubitus ulceration over the sacrum and right iliac crest. No deep soft tissue fluid collecti ons evident. Very small bilateral pleural effusions. Chest x-ray Status: image reviewed by me Additional Comments: IMPRESSION: Cardiomegaly and small left pleural effusion. Hospitalist H&P A/P (1) Sepsis associated hypotension Code(s): A41.9 - SEPSIS, UNSPECIFIED ORGANISM; I95.9 - HYPOTENSION, UNSPECIFIED Status: Acute (2) UTI (urinary tract infection) due to urinary indwelling Kinney catheter Code(s): T83.511A - I/I REACT D/T INDWELLING URETHRAL CATHETER, INIT; N39.0 - URINARY TRACT INFECTION, SITE NOT SPECIFIED Status: Acute Qualifiers: Indwelling urinary catheter type: indwelling urethral catheter (3) Acute kidney injury Code(s): N17.9 - ACUTE KIDNEY FAILURE, UNSPECIFIED Status: Acute (4) Generalized weakness Code(s): R53.1 - WEAKNESS Status: Acute (5) Lung cancer metastatic to bone Code(s): C34.90 - MALIGNANT NEOPLASM OF UNSP PART OF UNSP BRONCHUS OR LUNG; C79.51 - SECONDARY MALIGNANT NEOPLASM OF BONE Status: Chronic (6) Lung cancer metastatic to brain Code(s): C34.90 - MALIGNANT NEOPLASM OF UNSP PART OF UNSP BRONCHUS OR LUNG; C79.31 - SECONDARY MALIGNANT NEOPLASM OF BRAIN Status: Chronic (7) Protein-calorie malnutrition, severe Code(s): E43 - UNSPECIFIED SEVERE PROTEIN-CALORIE MALNUTRITION Status: Chronic (8) Ulcer of sacral region, unstageable Code(s): L98.429 - NON-PRESSURE CHRONIC ULCER OF BACK WITH UNSPECIFIED SEVERITY Status: Chronic (9) Paraplegia, unspecified Code(s): G82.20 - PARAPLEGIA, UNSPECIFIED Status: Chronic (10) Anemia of chronic disease Code(s): D63.8 - ANEMIA IN OTHER CHRONIC DISEASES CLASSIFIED ELSEWHERE Status: Chronic Plan: Admission to medical floor Broad-spectrum antibiotic therapy with cefepime and vancomycin Follow-up on culture result Continue IV fluid Wound care team consultation Palliative care consultation, Patient will need hospice at home Pain control Goal of care discussed with the patient's , she agreed with the DNR and conservative approach only, no aggressive or heroic measure, DVT prophylaxis Heparin GI prophylaxis Protonix Prognosis poor Disposition plan based on clinical course
[2020-10-11 15:46] LABS: SARS-CoV-2 NAA Rapid Test Not Detected (NotDetected)
[2020-10-11] MEDS ORDERED: Bisacodyl 10 MG SUPP PR PRN (17:01)
[2020-10-11] MEDS ORDERED: Loperamide HCl 2 MG CAP PO PRN (17:01)
[2020-10-11] MEDS ORDERED: Sodium Chloride 0.65% Nasal 44 ML BOT EA NARE PRN (17:01)
[2020-10-11] MEDS ORDERED: Zolpidem Tartrate 5 MG TAB PO PRN (17:01)
[2020-10-11] MEDS ORDERED: Acetaminophen 325 MG TAB PO PRN (17:01)
[2020-10-11] MEDS ORDERED: hydrALAZINE 20 MG/ML VIAL SLOW IVP PRN (17:01)
[2020-10-11] MEDS ORDERED: Cepastat Lozenges 1 LOZ PO PRN (17:01)
[2020-10-11] MEDS ORDERED: Loratadine 10 MG TAB PO PRN (17:01)
[2020-10-11] MEDS ORDERED: Ondansetron PF 4 MG/2 ML Vial IVP PRN (17:01)
[2020-10-11] MEDS ORDERED: Ondansetron ODT 4 MG TAB PO PRN (17:01)
[2020-10-11] MEDS ORDERED: Guaifenesin DM 100-10/5 ML UDCUP PO PRN (17:01)
[2020-10-11] MEDS ORDERED: Calcium Carbonate 500 MG ChewTAB PO PRN (17:01)
[2020-10-11] MEDS ORDERED: Senokot S 8.6-50 MG TAB PO PRN (17:01)
[2020-10-11] MEDS: Sodium Chloride 0.9% 1,000 ML IV SCH ×2 (21:34→23:54)
[2020-10-11] MEDS: Heparin 5,000 UNITS/ML VIAL SC SCH (21:34)
[2020-10-11 21:39] VITALS: BMI 27.7
[2020-10-11] MEDS: Cefepime 1 GM in Sodium Chloride 0.9% 100 ML IVPB SCH (23:54)
[2020-10-12] MEDS: Vancomycin 1.5 GRAM/300 ML BAG 1.5 GM in Premix Bag 1 BAG IVPB SCH ×2 (02:05→16:22)
[2020-10-12 06:21] LABS: #Eosinphils 0.5 thou/uL (0.0-0.7); #Lymphocytes 0.7 thou/uL (1.20-3.40); #Monocytes 0.7 thou/uL (0.11-0.59); #Neutrophils 4.8 thou/uL (1.40-6.50); %Basophils 0.1 % (0.0-1.0); %Eosinophils 7.8 % (0.0-10.0); %Lymphocytes 10.9 % (21.0-51.0); %Monocytes 10.6 % (0.0-10.0); %Neutrophils 70.6 % (42.0-75.0); Hemoglobin 6.5 g/dL (14.0-18.0); Mean Corpuscular HGB CONC 30.2 g/dL (32.0-36.0); Mean Corpuscular Volume 86.1 fL (78.0-98.0); Mean Platelet Volume 6.5 fL (7.4-10.4); Platelet Count 285 thou/uL (130-400); Red Blood Cell (RBC) Count 2.49 mill/uL (4.70-6.10); White Blood Cell (WBC) Count 6.8 thou/uL (4.8-10.8)
[2020-10-12 06:42] LABS: ALT (SGPT) Less than 7 U/L (8-55); AST (SGOT) 7 U/L (5-34); Albumin 1.9 g/dL (3.4-4.8); Alkaline Phosphatase 101 U/L (40-110); Anion Gap 12 mmol/L (10-20); BUN (Urea Nitrogen) 25 mg/dL (8.4-25.7); Bilirubin, Total 0.2 mg/dL (0.2-1.2); Calc. Creatinine Clearance 80 mL/min (70-130); Calcium 7.9 mg/dL (7.8-10.44); Carbon Dioxide 24 mmol/L (23-31); Chloride 104 mmol/L (98-107); Globulin 2.7 g/dL (2.4-3.5); Glucose 76 mg/dL (83-110); Protein, Total 4.6 g/dL (5.8-8.1); Sodium 136 mmol/L (136-145)
[2020-10-12] MEDS: Ferrous Sulfate 325 MG TAB PO SCH (07:57)
[2020-10-12] MEDS: Folic Acid 1 MG TAB PO SCH (07:58)
[2020-10-12] MEDS: Sodium Chloride 0.9% 1,000 ML IV SCH (07:58)
[2020-10-12] MEDS: Heparin 5,000 UNITS/ML VIAL SC SCH ×2 (07:58→19:56)
[2020-10-12] MEDS: Cyanocobalamin (Vitamin B-12) 1,000 MCG TAB PO SCH (07:58)
[2020-10-12] MEDS: Saccharomyces boulardii 250 MG CAP PO SCH (07:58)
--- NOTE | 2020-10-12 09:32 | PDOC.HOSPP ---
- Subjective Encounter Date: 10/12/20 Encounter Time: 07:45 Subjective: Patient seen and examined bedside today, no overnight event, updated plan of care to family member, today his hemoglobin dropped, he does not have any blood loss from any site, denies any abdominal pain - Objective Vital Signs & Weight: Vital Signs (12 hours) Temp Pulse Resp BP Pulse Ox 10/12/20 07:24 97.7 F 90 16 92/61 100 10/12/20 06:23 97.6 F 89 18 87/51 L 100 10/12/20 01:45 93 85/45 L 10/12/20 01:42 97.4 F L 95 18 81/41 L 99 Weight Weight 216 lb 2 oz I&O: 10/11/20 10/12/20 10/13/20 06:59 06:59 06:59 Intake Total 1640 Output Total 500 Balance 1140 Result Diagrams: 10/12/20 05:54 10/12/20 05:54 Hospitalist ROS - Review of Systems Constitutional: reports: weakness, malaise. denies: fever, chills, sweats, other ENT: denies: ear pain, ear discharge, nose pain, nose discharge, nose congestion, mouth pain, mouth swelling, throat pain, throat swelling, other Respiratory: denies: cough, dry, shortness of breath, hemoptysis, SOB with excertion, pleuritic pain, sputum, wheezing, other Cardiovascular: denies: chest pain, palpitations, orthopnea, paroxysmal noc. dyspnea, edema, light headedness, other Gastrointestinal: denies: nausea, vomiting, abdominal pain, diarrhea, constipation, melena, hematochezia, other Genitourinary: denies: dysuria, frequency, incontinence, hematuria, retention, other Musculoskeletal: denies: neck pain, shoulder pain, arm pain, back pain, hand p ain, leg pain, foot pain, other - Medication Medications: Active Medications Generic Name Dose Route Start Last Admin Trade Name Freq PRN Reason Stop Dose Admin Cyanocobalamin 1,000 mcg 10/12/20 09:00 10/12/20 07:58 Cyanocobalamin (Vitamin B-12) 1,000 Mcg Tab PO 1,000 mcg DAILY SHEA Administration Ferrous Sulfate 325 mg 10/12/20 08:00 10/12/20 07:57 Ferrous Sulfate 325 Mg Tab PO 325 mg QAM-WM SHEA Administration Folic Acid 1 mg 10/12/20 09:00 10/12/20 07:58 Folic Acid 1 Mg Tab PO 1 mg DAILY SHEA Administration Heparin Sodium (Porcine) 5,000 units 10/11/20 21:00 10/12/20 07:58 Heparin 5,000 Units/Ml Vial SC Not Given Q12HR SHEA Cefepime HCl 1 gm/ Sodium 100 mls @ 200 mls/hr 10/11/20 23:59 10/11/20 23:54 Chloride IVPB 100 mls 1200,2359 SHEA Administration Vancomycin HCl 1.5 gm/ Device 300 mls @ 200 mls/hr 10/12/20 02:00 10/12/20 02:05 IVPB 300 mls 0200,1400 SHEA Administration Saccharomyces Boulardii 250 mg 10/12/20 09:00 10/12/20 07:58 Saccharomyces Boulardii 250 Mg Cap PO 250 mg DAILY SHEA Administration Hospitalist Exam Vitals: Vital Signs (12 hours) Temp Pulse Resp BP Pulse Ox 10/12/20 07:24 97.7 F 90 16 92/61 100 10/12/20 06:23 97.6 F 89 18 87/51 L 100 10/12/20 01:45 93 85/45 L 10/12/20 01:42 97.4 F L 95 18 81/41 L 99 Weight Weight 216 lb 2 oz General Appearance: NAD, awake alert Eye: PERRL, anicteric sclera ENT: normocephalic atraumatic, no oropharyngeal lesions Neck: supple, symmetric, no JVD, no thyromegaly Heart: RRR, no murmur, no gallops, no rubs Respiratory: no wheezes, no rales, no ronchi Gastrointestinal: soft, non-tender, non-distended, normal bowel sounds Extremities: no clubbing, no edema Skin: normal turgor, no lesions Neurological - other findings: Paraplegia Musculoskeletal: normal tone, normal strength Psychiatric: normal affect, normal behavior Hosp A/P (1) Sepsis associated hypotension Code(s): A41.9 - SEPSIS, UNSPECIFIED ORGANISM; I95.9 - HYPOTENSION, UNSPECIFIED Status: Acute (2) UTI (urinary tract infection) due to urinary indwelling Kinney catheter Code(s): T83.511A - I/I REACT D/T INDWELLING URETHRAL CATHETER, INIT; N39.0 - URINARY TRACT INFECTION, SITE NOT SPECIFIED Status: Acute Qualifiers: Indwelling urinary catheter type: indwelling urethral catheter (3) Acute kidney injury Code(s): N17.9 - ACUTE KIDNEY FAILURE, UNSPECIFIED Status: Resolved (4) Generalized weakness Code(s): R53.1 - WEAKNESS Status: Acute (5) Lung cancer metastatic to bone Code(s): C34.90 - MALIGNANT NEOPLASM OF UNSP PART OF UNSP BRONCHUS OR LUNG; C79.51 - SECONDARY MALIGNANT NEOPLASM OF BONE Status: Chronic (6) Lung cancer metastatic to brain Code(s): C34.90 - MALIGNANT NEOPLASM OF UNSP PART OF UNSP BRONCHUS OR LUNG; C79.31 - SECONDARY MALIGNANT NEOPLASM OF BRAIN Status: Chronic (7) Protein-calorie malnutrition, severe Code(s): E43 - UNSPECIFIED SEVERE PROTEIN-CALORIE MALNUTRITION Status: Chronic (8) Ulcer of sacral region, unstageable Code(s): L98.429 - NON-PRESSURE CHRONIC ULCER OF BACK WITH UNSPECIFIED SEVERITY Status: Chronic (9) Paraplegia, unspecified Code(s): G82.20 - PARAPLEGIA, UNSPECIFIED Status: Chronic (10) Anemia of chronic disease Code(s): D63.8 - ANEMIA IN OTHER CHRONIC DISEASES CLASSIFIED ELSEWHERE Status: Chronic - Plan old records reviewed/req, plan discussed w/ family, continue antibiotics, social services analyst, DVT proph w/heparin Continue coverage with cefepime and vancomycin, Today we will transfuse 1 unit of PRBC I will add midodrine for low blood pressure IV fluids changed to dextrose with NS at 75 mill per hour Follow-up on culture result Eventually patient will go home with home hospice if family agrees, Discussed with the patient's Medication reviewed and continue provide symptomatic and supportive care We will repeat labs tomorrow
[2020-10-12] MEDS: Dextrose 5 % And 0.9 % NaCl 1,000 ML IV SCH ×2 (10:33→19:56)
[2020-10-12] MEDS: Midodrine HCl 5 MG TAB PO SCH ×3 (10:33→19:56)
[2020-10-12] MEDS: Cefepime 1 GM in Sodium Chloride 0.9% 100 ML IVPB SCH ×2 (14:02→23:49)
[2020-10-12] MEDS: Morphine 4 MG/ML VIAL SLOW IVP PRN ×2 (14:26→18:20)
[2020-10-12] MEDS: HYDROcodone/Acetaminophen 5/325 mg Tablet PO PRN (16:30)
[2020-10-13] MEDS: Vancomycin 1.5 GRAM/300 ML BAG 1.5 GM in Premix Bag 1 BAG IVPB SCH (01:50)
[2020-10-13] MEDS: Morphine 4 MG/ML VIAL SLOW IVP PRN ×3 (05:27→21:15)
[2020-10-13 07:39] LABS: #Eosinphils 0.5 thou/uL (0.0-0.7); #Lymphocytes 0.5 thou/uL (1.20-3.40); #Monocytes 0.8 thou/uL (0.11-0.59); #Neutrophils 6.7 thou/uL (1.40-6.50); %Eosinophils 5.7 % (0.0-10.0); %Lymphocytes 5.4 % (21.0-51.0); %Monocytes 9.3 % (0.0-10.0); %Neutrophils 79.7 % (42.0-75.0); Hemoglobin 7.9 g/dL (14.0-18.0); Mean Corpuscular HGB CONC 30.7 g/dL (32.0-36.0); Mean Corpuscular Volume 87.8 fL (78.0-98.0); Mean Platelet Volume 6.5 fL (7.4-10.4); Platelet Count 286 thou/uL (130-400); Red Blood Cell (RBC) Count 2.93 mill/uL (4.70-6.10); White Blood Cell (WBC) Count 8.5 thou/uL (4.8-10.8)
[2020-10-13 08:01] LABS: Anion Gap 12 mmol/L (10-20); BUN (Urea Nitrogen) 23 mg/dL (8.4-25.7); Calc. Creatinine Clearance 89 mL/min (70-130); Carbon Dioxide 21 mmol/L (23-31); Chloride 105 mmol/L (98-107); Glucose 93 mg/dL (83-110); Potassium 3.9 mmol/L (3.5-5.1); Sodium 134 mmol/L (136-145)
[2020-10-13] MEDS: Saccharomyces boulardii 250 MG CAP PO SCH (08:17)
[2020-10-13] MEDS: Folic Acid 1 MG TAB PO SCH (08:17)
[2020-10-13] MEDS: Cyanocobalamin (Vitamin B-12) 1,000 MCG TAB PO SCH (08:18)
[2020-10-13] MEDS: Ferrous Sulfate 325 MG TAB PO SCH (08:18)
[2020-10-13] MEDS: Midodrine HCl 5 MG TAB PO SCH ×3 (08:18→21:02)
[2020-10-13] MEDS: Dextrose 5 % And 0.9 % NaCl 1,000 ML IV SCH (08:18)
[2020-10-13] MEDS: Heparin 5,000 UNITS/ML VIAL SC SCH ×3 (08:18→21:03)
--- NOTE | 2020-10-13 11:43 | PQF ---
CLINICAL DOCUMENTATION CLARIFICATION FORM: Dear Dr. Floyd; Dr. Rhoades Date : 10/13/2020; 10/16/2020 Please exercise your independent, professional judgment in responding to the clarification form. Clinical indicators are provided on the bottom of this form for your review. Please check appropriate box(es): [ ] Sepsis due to UTI due to urinary indwelling Kinney catheter. [ ] Sepsis due to UTI not due to urinary indwelling Kinney catheter. [ ] Sepsis due to other: [ ] Severe sepsis with associated acute organ dysfunction: [ ] Acute Kidney injury w/o ATN [ ] Additional/Other: please specify: [ ] Septic Shock [ ] Other diagnosis ____ASymptomatic bactiuria [ ] Unable to determine In addition, please specify: Present on Admission (POA): [ ] Yes [ ] No [ ] Unable to determine For continuity of documentation, please document condition throughout progress notes and discharge summary. Thank You. To be completed by CDI/Coding staff for physician review: CLINICAL INDICATORS - SIGNS / SYMPTOMS / LABS / RESULTS AND LOCATION IN MR *ER Record 10/11: VS: BP 82/40, MAP 54, pulse 100, Resp 20, O2 sat 98 on RA Doctor notes: Critical Care time evaluation and treatment of pt with septic shock from catheter associated UTI Diagnosis: UTI. Additional: Comfort care, Septic shock *10/12 pn ([place])A/P: Sepsis associated hypotension UTI due to urinary indwelling Kinney catheter *10/15 pn ([place]) Colonization with drug -resistent bacteria. RISK FACTORS / RESULTS AND LOCATION IN MR H&P 10/11 ([place]): PMH: Metastatic lung cancer with metastasis to brain and spine. A fib. Paraplegia. HTN. A/P: Sepsis associated hypotension. UTI due to urinary indwelling Kinney catheter. BOAZ. Ulcer of sacral region TREATMENTS / RESULTS AND LOCATION IN MR *H&P 10/11 ([facility]) A.P: Broad-spectrum antibiotic therapy with cefepime and vancomycin. Continue IV fluid *MAR: Order 10/13: Meropenem 1 gm IV q8 hr ___ Thank you, Coral Pan, RN, ROBERT [email or web address] This is a permanent part of the Medical Record [facility]
--- NOTE | 2020-10-13 13:56 | PDOC.HOSPP ---
- Subjective Encounter Date: 10/13/20 Encounter Time: 10:30 Subjective: Patient seen and examined. No new complaints. No overnight events - Objective Vital Signs & Weight: Vital Signs (12 hours) Temp Pulse Resp BP Pulse Ox 10/13/20 11:20 97.4 F L 89 14 90/59 L 100 10/13/20 09:23 100 10/13/20 08:29 97.4 F L 89 20 90/59 L 100 10/13/20 04:00 98.0 F 87 18 88/55 L 100 Weight Admit Weight 216 lb 2 oz Weight 216 lb 2 oz I&O: 10/12/20 10/13/20 10/14/20 06:59 06:59 06:59 Intake Total 1640 1910 Output Total 500 1125 Balance 1140 785 Result Diagrams: 10/13/20 07:06 10/13/20 07:06 Hospitalist ROS - Review of Systems ENT: denies: ear pain, ear discharge, nose pain, nose discharge, nose congestion, mouth pain, mouth swelling, throat pain, throat swelling, other Respiratory: denies: cough, dry, shortness of breath, hemoptysis, SOB with excertion, pleuritic pain, sputum, wheezing, other Cardiovascular: denies: chest pain, palpitations, orthopnea, paroxysmal noc. dyspnea, edema, light headedness, other Gastrointestinal: denies: nausea, vomiting, abdominal pain, diarrhea, constipation, melena, hematochezia, other Genitourinary: denies: dysuria, frequency, incontinence, hematuria, retention, other - Medication Medications: Active Medications Generic Name Dose Route Start Last Admin Trade Name Enochq PRN Reason Stop Dose Admin Hydrocodone Bitart/Acetaminophen 1 tab 10/11/20 17:01 10/12/20 16:30 Hydrocodone/Acetaminophen 5/325 Mg Tablet PO 1 tab Q4H PRN Administration Moderate Pain (4-6) Cyanocobalamin 1,000 mcg 10/12/20 09:00 10/13/20 08:18 Cyanocobalamin (Vitamin B-12) 1,000 Mcg Tab PO 1,000 mcg DAILY SHEA Administration Ferrous Sulfate 325 mg 10/12/20 08:00 10/13/20 08:18 Ferrous Sulfate 325 Mg Tab PO 325 mg QAM- SHEA Administration Folic Acid 1 mg 10/12/20 09:00 10/13/20 08:17 Folic Acid 1 Mg Tab PO 1 mg DAILY SHEA Administration Heparin Sodium (Porcine) 5,000 units 10/11/20 21:00 10/13/20 08:22 Heparin 5,000 Units/Ml Vial SC 5,000 units Q12HR SHEA Administration Dextrose/Sodium Chloride 1,000 mls @ 75 mls/hr 10/12/20 08:00 10/13/20 08:18 D5 0.9% Ns IV 1,000 mls .[id number] SHEA Administration Midodrine 5 mg 10/12/20 09:00 10/13/20 08:18 Midodrine Hcl 5 Mg Tab PO 5 mg TID SHEA Administration Morphine Sulfate 4 mg 10/11/20 17:01 10/13/20 05:27 Morphine 4 Mg/Ml Vial SLOW IVP 4 mg Q4H PRN Administration Moderate to Severe Pain (6-10) Saccharomyces Boulardii 250 mg 10/12/20 09:00 10/13/20 08:17 Saccharomyces Boulardii 250 Mg Cap PO 250 mg DAILY SHEA Administration Hospitalist Exam Vitals: Vital Signs (12 hours) Temp Pulse Resp BP Pulse Ox 10/13/20 11:20 97.4 F L 89 14 90/59 L 100 10/13/20 09:23 100 10/13/20 08:29 97.4 F L 89 20 90/59 L 100 10/13/20 04:00 98.0 F 87 18 88/55 L 100 Weight Admit Weight 216 lb 2 oz Weight 216 lb 2 oz General Appearance: NAD, awake alert Eye: PERRL, anicteric sclera ENT: normocephalic atraumatic, no oropharyngeal lesions Neck: supple, symmetric, no JVD, no thyromegaly Heart: no murmur, no gallops, no rubs Respiratory: no wheezes, no rales, no ronchi Gastrointestinal: soft, non-tender, non-distended, normal bowel sounds Extremities: no clubbing, no edema Skin: normal turgor, no lesions Neurological - other findings: Paraplegia Psychiatric: normal affect, normal behavior Hosp A/P (1) Sepsis associated hypotension Code(s): A41.9 - SEPSIS, UNSPECIFIED ORGANISM; I95.9 - HYPOTENSION, UNSPECIFIED Status: Acute (2) UTI (urinary tract infection) due to urinary indwelling Stone catheter Code(s): T83.511A - I/I REACT D/T INDWELLING URETHRAL CATHETER, INIT; N39.0 - URINARY TRACT INFECTION, SITE NOT SPECIFIED Status: Acute Qualifiers: Indwelling urinary catheter type: indwelling urethral catheter (3) Acute kidney injury Code(s): N17.9 - ACUTE KIDNEY FAILURE, UNSPECIFIED Status: Resolved (4) Generalized weakness Code(s): R53.1 - WEAKNESS Status: Acute (5) Lung cancer metastatic to bone Code(s): C34.90 - MALIGNANT NEOPLASM OF UNSP PART OF UNSP BRONCHUS OR LUNG; C79.51 - SECONDARY MALIGNANT NEOPLASM OF BONE Status: Chronic (6) Lung cancer metastatic to brain Code(s): C34.90 - MALIGNANT NEOPLASM OF UNSP PART OF UNSP BRONCHUS OR LUNG; C79.31 - SECONDARY MALIGNANT NEOPLASM OF BRAIN Status: Chronic (7) Protein-calorie malnutrition, severe Code(s): E43 - UNSPECIFIED SEVERE PROTEIN-CALORIE MALNUTRITION Status: Chronic (8) Ulcer of sacral region, unstageable Code(s): L98.429 - NON-PRESSURE CHRONIC ULCER OF BACK WITH UNSPECIFIED SEVERITY Status: Chronic (9) Paraplegia, unspecified Code(s): G82.20 - PARAPLEGIA, UNSPECIFIED Status: Chronic (10) Anemia of chronic disease Code(s): D63.8 - ANEMIA IN OTHER CHRONIC DISEASES CLASSIFIED ELSEWHERE Status: Chronic - Plan old records reviewed/req, plan discussed w/ family, stone catheter, continue antibiotics Based on urine culture result we will discontinue cefepime and vancomycin, will start meropenem Continue wound care Continue midodrine Discontinue IV fluid, patient has chronic low blood pressure but patient is asymptomatic, will monitor without IV fluid Discussed with the patient's on phone Medication reviewed and continue provide symptomatic and supportive care Nutritional support
[2020-10-13] MEDS ORDERED: Meropenem 1 GM in Sodium Chloride 0.9% 100 ML IVPB SCH (14:00)
[2020-10-13] MEDS: MEROPENEM 1 GM/50 ML 1 GM in Premix Bag 1 BAG IVPB SCH ×2 (14:23→21:16)
[2020-10-14] MEDS: MEROPENEM 1 GM/50 ML 1 GM in Premix Bag 1 BAG IVPB SCH ×3 (06:03→20:02)
[2020-10-14] MEDS: Morphine 4 MG/ML VIAL SLOW IVP PRN ×3 (06:08→17:01)
[2020-10-14] MEDS: Ferrous Sulfate 325 MG TAB PO SCH (08:39)
[2020-10-14] MEDS: Saccharomyces boulardii 250 MG CAP PO SCH (08:40)
[2020-10-14] MEDS: Cyanocobalamin (Vitamin B-12) 1,000 MCG TAB PO SCH (08:40)
[2020-10-14] MEDS: Heparin 5,000 UNITS/ML VIAL SC SCH ×2 (08:41→20:02)
[2020-10-14] MEDS: Folic Acid 1 MG TAB PO SCH (08:41)
[2020-10-14] MEDS: Midodrine HCl 5 MG TAB PO SCH ×3 (08:41→20:02)
[2020-10-14] MEDS: HYDROcodone/Acetaminophen 5/325 mg Tablet PO PRN (13:05)
--- NOTE | 2020-10-14 15:59 | CON ---
DATE OF CONSULTATION: 10/14/2020 REASON FOR CONSULTATION: Urinary tract infection. HISTORY OF PRESENT ILLNESS: A 74-year-old gentleman, history of AFib, hyperlipidemia, colon cancer, in remission, and stage IV lung cancer with multiple mets, who developed stage IV decubitus ulcer, which was treated in July with surgical debridement and negative pressure dressing. Colostomy was not placed, and the patient was discharged on hospice care apparently. He is readmitted with worsening abdominal pain across the abdomen in a bandlike fashion, which comes in waves, sort of a sharp shock-like pain. He is chronically catheterized because of his paraplegia and neurogenic bladder associated with spinal mets. He tried morphine, but did not help with the pain, so he came to the hospital. He is not taking any treatment for cancer right now. He is just having home health visits for wound management. He does have a do not resuscitate status. In the emergency room, his blood pressure 94/58, heart rate 104, temperature 98.3, and saturating 100% on room air and his blood pressure is kind of fluctuated between 80/40 to 100/50. He is not febrile in the emergency room with temperatures ranging from 98.3 to 98.7. The exam is remarkable for paraplegia, edema, sacral ulcer. The abdominal examination is described as tenderness in the epigastric region, but I did agree with this finding as it is noted in my physical exam. Currently, Mr. Vallejo is awake. His is in the room with him. He appears chronically ill, but in no acute distress, although from time to time, he has those shooting pains through the abdominal area. He has no headaches. No visual symptoms, sore throat, odynophagia, or dysphagia. No respiratory symptoms. He has chronic back pain and has this abdominal pain now, is chronically catheterized, and his paraplegia is the same. PAST MEDICAL HISTORY: Includes coronary artery disease; colorectal cancer, in remission; lung cancer with widespread mets both to spine and to viscera, status post chemo radiation therapy to brain and spine, he is not on active treatment anymore; previous pacemaker, AFib, Eliquis. SOCIAL HISTORY: , lives in [place]. FAMILY HISTORY: Noncontributory. ALLERGIES: NONE. CURRENT MEDICATIONS: 1. DuoNeb. 2. Dulcolax. 3. Vitamin B12. 4. Feosol. 5. Robitussin. 6. Apresoline. 7. [place]. 8. Imodium. 9. Claritin. 10. Morphine. 11. Senokot. 12. Ambien. 13. Meropenem. The patient has been in the hospital since about the . PHYSICAL EXAMINATION: VITAL SIGNS: Temperature max 98.1, blood pressure 85/55, heart rate 89, respiratory rate 18 to 24, and O2 saturation 100. GENERAL: Appears in no distress, chronically ill appearing. Sometimes, he has those bouts of abdominal shooting pain, which come and go, and within seconds, disappear. He has a peripheral IV access and a Kinney catheter. He has a chronic indwelling Kinney catheter for management of neurogenic bladder. He also has a negative pressure dressing. There is a wound photo note from the . There was a slight area of round erosion, ulceration, left foot area, lateral malleolus. There is another one with a black eschar in the left leg and a few punctate areas of ulceration in the right leg. There is wide area of decubitus ulceration in the sacral region, kind of half donut shape sort of, wrapping around towards the left side of his presacral region and crossing the midline. The base of the wound has most of it covered by red tissue and there are a few yellow, white, green areas of very few ones I would say 5 or 6 small splotches of yellow, white, green tissues. There is a lot of undermining around this area, but is obviously improved compared with the previous assessment. There is another smaller ulcer, which is not as deep in the lateral aspect of the right ischial region. HEENT: Some temporal wasting. Ocular movements conjugate. Pupils are equal. Conjunctivae pale. Nasal passage normal. Ear canal normal. Oral cavity with quite a few teeth in place with some decay. Oral mucosa normal. No jugular vein distention. NECK: Supple. No thyromegaly. LUNGS: Symmetric, clear breath sounds. HEART: S1 and S2, regular rate without murmurs. Pacer pocket site appears normal. ABDOMEN: Mildly distended, but not tender to palpation. I palpated and percussed and did not elicit any pain. The pain would come and those are very short pulses that would last for a few seconds and will go away and it has a neurologic, sort of a neuropathic character to it. When I try to reproduce the pain by pressing on his abdomen, nothing happened really. No obvious organomegaly noted. No bladder distention. The urine in the Kinney tube is clear. NEUROLOGIC: His paraplegia is complete as noted before with absence of reflexes in the lower extremities. He is awake, oriented, follows commands. LABORATORY STUDIES: White cell count was 11.2, down to 8.5; hemoglobin 7.9; platelets 286; with 79.7 neutrophils. Creatinine 1.0, albumin 2.3 and 1.9. Urinalysis greater than 50 wbc's. SARS-CoV-2 serology negative. Urine culture with P aeruginosa and Enterococcus species. The P aeruginosa is quite resistant to various antimicrobials except for meropenem, tobramycin, and amikacin. Blood cultures, no growth for 48 hours. IMAGING STUDIES: Abdomen and pelvis CT from the with worsening of metastatic disease, liver masses, and T7 through L3 vertebrae metastases and partial collapse of T7 vertebral body and compromise of central spinal canal and decubitus ulceration. Chest x-ray, cardiomegaly and small left pleural effusion. ASSESSMENT: 1. Metastatic lung cancer with spinal involvement of T7 with progression and collapse of T7 vertebra, associated with this pain, which I believe is more of a radiculopathic nature. 2. Atrial fibrillation. 3. Chronic decubitus ulcer, which has improved in character since last visit with wound management. DISCUSSION: The abdominal pain is consistent with neuropathic pain or radiculopathic pain associated with the T7 process that led to collapse of the vertebra and is probably causing radiculopathy and I do not think there is evidence to suggest an acute inflammatory process to intraabdominal contents. There is no evidence of peritonitis, so may want to try a Neurontin or gabapentin for management of this neuropathic pain. The other proper approach would be the nerve root by invasive either chemical or physical resection of the nerve root if feasible. I would probably try Neurontin first, less invasive approach. Regarding the urinary tract findings, most likely does reflect colonization of the bladder from the indwelling Kinney catheter rather than true invasive process, so I would recommend discontinuation of antimicrobials at this time. Job ID: [id number] [facility]
[2020-10-14] MEDS ORDERED: Morphine ER 15 MG TAB PO PRN (17:58)
--- NOTE | 2020-10-14 17:59 | PDOC.HOSPP ---
- Subjective Encounter Date: 10/14/20 Encounter Time: 17:57 Subjective: Mr. Wiseman was seen today in follow-up of UTI, and abdominal pain. He notes worsening pain, which began prior to his hospitalization. - Objective Vital Signs & Weight: Vital Signs (12 hours) Temp Pulse Resp BP Pulse Ox 10/14/20 16:49 97.5 F L 92 20 94/62 99 10/14/20 16:00 97.5 F L 10/14/20 12:00 98.7 F 92 20 100/69 99 10/14/20 08:00 97.6 F 10/14/20 07:00 97.6 F 89 24 H 85/55 L 100 Weight Admit Weight 216 lb 2 oz Weight 216 lb 2 oz I&O: 10/13/20 10/14/20 10/15/20 06:59 06:59 06:59 Intake Total 1910 1250 520 Output Total 1125 800 Balance 785 450 520 Result Diagrams: 10/13/20 07:06 10/13/20 07:06 Hospitalist ROS - Medication Medications: Active Medications Generic Name Dose Route Start Last Admin Trade Name Freq PRN Reason Stop Dose Admin Hydrocodone Bitart/Acetaminophen 1 tab 10/11/20 17:01 10/14/20 13:05 Hydrocodone/Acetaminophen 5/325 Mg Tablet PO 1 tab Q4H PRN Administration Moderate Pain (4-6) Cyanocobalamin 1,000 mcg 10/12/20 09:00 10/14/20 08:40 Cyanocobalamin (Vitamin B-12) 1,000 Mcg Tab PO 1,000 mcg DAILY SHEA Administration Ferrous Sulfate 325 mg 10/12/20 08:00 10/14/20 08:39 Ferrous Sulfate 325 Mg Tab PO 325 mg QAM-WM SHEA Administration Folic Acid 1 mg 10/12/20 09:00 10/14/20 08:41 Folic Acid 1 Mg Tab PO 1 mg DAILY SHEA Administration Heparin Sodium (Porcine) 5,000 units 10/11/20 21:00 10/14/20 08:41 Heparin 5,000 Units/Ml Vial SC 5,000 units Q12HR SHEA Administration Meropenem 1 gm/ Device 50 mls @ 100 mls/hr 10/13/20 14:00 10/14/20 13:07 IVPB 50 mls Q8HR SHEA Administration Midodrine 5 mg 10/12/20 09:00 10/14/20 14:50 Midodrine Hcl 5 Mg Tab PO 5 mg TID SHEA Administration Morphine Sulfate 4 mg 10/11/20 17:01 10/14/20 17:01 Morphine 4 Mg/Ml Vial SLOW IVP 4 mg Q4H PRN Administration Moderate to Severe Pain (6-10) Saccharomyces Boulardii 250 mg 10/12/20 09:00 10/14/20 08:40 Saccharomyces Boulardii 250 Mg Cap PO 250 mg DAILY SHEA Administration Sodium Chloride 10 ml 10/13/20 21:00 10/14/20 08:42 Flush - Normal Saline 10 Ml Syringe IVF 10 ml Q12HR SHEA Administration Hospitalist Exam Vitals: Vital Signs (12 hours) Temp Pulse Resp BP Pulse Ox 10/14/20 16:49 97.5 F L 92 20 94/62 99 10/14/20 16:00 97.5 F L 10/14/20 12:00 98.7 F 92 20 100/69 99 10/14/20 08:00 97.6 F 10/14/20 07:00 97.6 F 89 24 H 85/55 L 100 Weight Admit Weight 216 lb 2 oz Weight 216 lb 2 oz General Appearance: NAD Eye: PERRL, anicteric sclera Heart: RRR, no murmur, no gallops, no rubs, normal peripheral pulses Respiratory: CTAB, no wheezes, no rales, no ronchi, normal chest expansion, no tachypnea Gastrointestinal: soft, non-distended, normal bowel sounds Extremities: 2+ LE edema (+ pitting edema in both lower extremities, palpable pu lses, no lesions) Hosp A/P (1) Colonization with drug-resistant bacteria Code(s): Z22.39 - CARRIER OF OTHER SPECIFIED BACTERIAL DISEASES Status: Acute (2) Paraplegia, unspecified Code(s): G82.20 - PARAPLEGIA, UNSPECIFIED Status: Chronic (3) Lung cancer metastatic to bone Code(s): C34.90 - MALIGNANT NEOPLASM OF UNSP PART OF UNSP BRONCHUS OR LUNG; C79.51 - SECONDARY MALIGNANT NEOPLASM OF BONE Status: Chronic (4) Protein-calorie malnutrition, severe Code(s): E43 - UNSPECIFIED SEVERE PROTEIN-CALORIE MALNUTRITION Status: Chronic - Plan * UTI- ID input appreciated. He has bacterial colonization most likely. Antibiotics have been discontinued * Lower abdominal pain- agree with Dr. Muñoz, his pain is likely neuropathic due to the metastatic bone lesions. Will add Gabapentin . It is also time to change his Fentanyl patch * Metastatic Lung Cancer- The patient and his feel it is time for Hospice, and are requesting a referral. Will consult Case Management
[2020-10-14] MEDS: Gabapentin 100 MG CAP PO SCH (20:02)
[2020-10-15] MEDS: Morphine 4 MG/ML VIAL SLOW IVP PRN ×2 (06:13→13:41)
[2020-10-15] MEDS: MEROPENEM 1 GM/50 ML 1 GM in Premix Bag 1 BAG IVPB SCH ×3 (06:14→21:21)
[2020-10-15] MEDS: Heparin 5,000 UNITS/ML VIAL SC SCH ×2 (08:15→21:23)
[2020-10-15] MEDS: Saccharomyces boulardii 250 MG CAP PO SCH (08:16)
[2020-10-15] MEDS: Folic Acid 1 MG TAB PO SCH (08:16)
[2020-10-15] MEDS: Gabapentin 100 MG CAP PO SCH ×2 (08:16→21:22)
[2020-10-15] MEDS: Midodrine HCl 5 MG TAB PO SCH ×3 (08:16→21:22)
[2020-10-15] MEDS: Ferrous Sulfate 325 MG TAB PO SCH (08:16)
[2020-10-15] MEDS: Cyanocobalamin (Vitamin B-12) 1,000 MCG TAB PO SCH (08:17)
[2020-10-15] MEDS ORDERED: Ketorolac Tromethamine 30 MG/ML VIAL IVP PRN (15:39)
--- NOTE | 2020-10-15 15:42 | PDOC.HOSPP ---
- Subjective Encounter Date: 10/15/20 Encounter Time: 15:41 Subjective: Mr. Vallejo was seen today in follow-up of severe cancer pain. He notes not much improvement at all with regards to his cancer pain. He is grimacing in the room. - Objective Vital Signs & Weight: Vital Signs (12 hours) Temp Pulse Resp BP Pulse Ox 10/15/20 08:00 95 10/15/20 07:00 97.7 F 96 20 98/67 95 Weight Admit Weight 216 lb 2 oz Weight 216 lb 2 oz I&O: 10/14/20 10/15/20 10/16/20 06:59 06:59 06:59 Intake Total 1250 1340 480 Output Total 800 650 Balance 450 690 480 Result Diagrams: 10/13/20 07:06 10/13/20 07:06 Hospitalist ROS - Medication Medications: Active Medications Generic Name Dose Route Start Last Admin Trade Name Freq PRN Reason Stop Dose Admin Hydrocodone Bitart/Acetaminophen 1 tab 10/11/20 17:01 10/14/20 13:05 Hydrocodone/Acetaminophen 5/325 Mg Tablet PO 1 tab Q4H PRN Administration Moderate Pain (4-6) Cyanocobalamin 1,000 mcg 10/12/20 09:00 10/15/20 08:17 Cyanocobalamin (Vitamin B-12) 1,000 Mcg Tab PO 1,000 mcg DAILY SHEA Administration Ferrous Sulfate 325 mg 10/12/20 08:00 10/15/20 08:16 Ferrous Sulfate 325 Mg Tab PO 325 mg QAM-WM SHEA Administration Folic Acid 1 mg 10/12/20 09:00 10/15/20 08:16 Folic Acid 1 Mg Tab PO 1 mg DAILY SHEA Administration Gabapentin 100 mg 10/14/20 21:00 10/15/20 08:16 Gabapentin 100 Mg Cap PO 100 mg BID SHEA Administration Heparin Sodium (Porcine) 5,000 units 10/11/20 21:00 10/15/20 08:15 Heparin 5,000 Units/Ml Vial SC 5,000 units Q12HR SHEA Administration Meropenem 1 gm/ Device 50 mls @ 100 mls/hr 10/13/20 14:00 10/15/20 13:45 IVPB 50 mls Q8HR SHEA Administration Midodrine 5 mg 10/12/20 09:00 10/15/20 14:56 Midodrine Hcl 5 Mg Tab PO 5 mg TID SHEA Administration Morphine Sulfate 4 mg 10/11/20 17:01 10/15/20 13:41 Morphine 4 Mg/Ml Vial SLOW IVP 4 mg Q4H PRN Administration Moderate to Severe Pain (6-10) Morphine Sulfate 15 mg 10/14/20 17:58 10/15/20 10:06 Morphine Er 15 Mg Tab PO 15 mg TIDPRN PRN Administration Severe Pain (7-10) Saccharomyces Boulardii 250 mg 10/12/20 09:00 10/15/20 08:16 Saccharomyces Boulardii 250 Mg Cap PO 250 mg DAILY SHEA Administration Sodium Chloride 10 ml 10/13/20 21:00 10/15/20 08:17 Flush - Normal Saline 10 Ml Syringe IVF Not Given Q12HR [facility] Hospitalist Exam Vitals: Vital Signs (12 hours) Temp Pulse Resp BP Pulse Ox 10/15/20 08:00 95 10/15/20 07:00 97.7 F 96 20 98/67 95 Weight Admit Weight 216 lb 2 oz Weight 216 lb 2 oz Eye: PERRL, anicteric sclera Heart: RRR, no murmur, no gallops, no rubs, normal peripheral pulses Respiratory: CTAB, no wheezes, no rales, no ronchi, normal chest expansion Gastrointestinal: soft, non-tender, non-distended, normal bowel sounds, no palpable masses, no hepatomegaly Extremities: no cyanosis, 2+ LE edema Hosp A/P (1) Pain due to malignant neoplasm metastatic to bone Code(s): G89.3 - NEOPLASM RELATED PAIN (ACUTE) (CHRONIC); C79.51 - SECONDARY MALIGNANT NEOPLASM OF BONE Status: Acute (2) Colonization with drug-resistant bacteria Code(s): Z22.39 - CARRIER OF OTHER SPECIFIED BACTERIAL DISEASES Status: Acute (3) Paraplegia, unspecified Code(s): G82.20 - PARAPLEGIA, UNSPECIFIED Status: Chronic (4) Lung cancer metastatic to bone Code(s): C34.90 - MALIGNANT NEOPLASM OF UNSP PART OF UNSP BRONCHUS OR LUNG; C79.51 - SECONDARY MALIGNANT NEOPLASM OF BONE Status: Chronic (5) Protein-calorie malnutrition, severe Code(s): E43 - UNSPECIFIED SEVERE PROTEIN-CALORIE MALNUTRITION Status: Chronic - Plan * Cancer related pain- will increase the dose on the Duragesic patch to 50 mcg. Will try Toradol as an option. * May consider titrating the dose of Gabapentin as well if this does not help * Metastatic Lung Cancer- A Hospice Consult as been placed. * Urine Colonization- Antibiotics are not needed
[2020-10-15] MEDS ORDERED: Ketorolac Tromethamine 30 MG/ML VIAL IVP SCH (16:00)
[2020-10-15] MEDS ORDERED: fentaNYL 50 mcg/hour Patch TD SCH (17:00)
[2020-10-16] MEDS: MEROPENEM 1 GM/50 ML 1 GM in Premix Bag 1 BAG IVPB SCH ×3 (06:13→22:46)
[2020-10-16] MEDS: Saccharomyces boulardii 250 MG CAP PO SCH (08:30)
[2020-10-16] MEDS: Ferrous Sulfate 325 MG TAB PO SCH (08:31)
[2020-10-16] MEDS: Midodrine HCl 5 MG TAB PO SCH ×3 (08:31→19:57)
[2020-10-16] MEDS: Morphine 4 MG/ML VIAL SLOW IVP PRN ×2 (08:31→19:11)
[2020-10-16] MEDS: Cyanocobalamin (Vitamin B-12) 1,000 MCG TAB PO SCH (08:31)
[2020-10-16] MEDS: Heparin 5,000 UNITS/ML VIAL SC SCH ×2 (08:31→19:58)
[2020-10-16] MEDS: Folic Acid 1 MG TAB PO SCH (08:31)
[2020-10-16] MEDS: Gabapentin 100 MG CAP PO SCH ×2 (08:31→19:57)
--- NOTE | 2020-10-16 12:04 | PQF ---
CLINICAL DOCUMENTATION CLARIFICATION FORM: Dear Dr. Rhoades Date: 10/16/2020 Please exercise your independent, professional judgment in responding to the clarification form. Clinical indicators are provided on the bottom of this form for your review. Please check appropriate box(es): [ X ] Concur with Wound Care Assessment findings. [ ] Pressure Ulcer: [ ] Location: POA: [ ] Yes [ ] No [ ] Unable to determine Stage (I to IV): (Left Right Bilateral N/A ) [ ] Location: POA: [ ] Yes [ ] No [ ] Unable to determine Stage (I to IV): (Left Right Bilateral N/A ) [ ] Other diagnosis [ ] Unable to determine In addition, please specify: Present on Admission (POA): [ X] Yes [ ] No [ ] Unable to determine For continuity of documentation, please document condition throughout progress notes and discharge summary. Thank You. To be completed by CDI/Coding staff for physician review: CLINICAL INDICATORS - SIGNS / SYMPTOMS / LABS / RSULTS AND LOCATION IN MR *H&P 10/11 (): A/P: Ulcer of sacral region, unstageable. *10/12 Wound Care Assessment: Right lateral ankle pressure ulcer. Unstagable. Partial Thickness Sacrum Pressure Ulcer. Stage IV. 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 Paraplegia. A/P: Protein-calorie malnutrition, severe. TREATMENTS / RSULTS AND LOCATION IN MR H&P 10/11 (): Plan: Wound care team consultation 10/12 Wound Care Assessment Recommendations: Follow Nursing Wound Care Protocol. Specialty Bed: [facility] Pre-ulcer skin changes limited to persistent focal edema (Stage 1) Abrasion, blister, partial thickness skin loss involving epidermis and/or dermis (Stage 2) Full thickness skin loss involving damage or necrosis of SQ tissue. (Stage 3) Necrosis of soft tissue through to underlying muscle, tendon, or bone. (Stage 4) Purple or maroon discolored skin or blood filled blister PRESSURE ULCER STAGES Stage I: Erythema Stage II: Partial thickness Stage III: Full thickness Stage IV: Necrosis to muscle/bone Thank you, Coral Pan RN, [email or web address] This is a permanent part of the Medical Record [facility]
--- NOTE | 2020-10-16 13:33 | PDOC.HOSPP ---
- Subjective Encounter Date: 10/16/20 Encounter Time: 13:29 Subjective: Mr. Vallejo was seen today in follow-up of metastatic cancer, and severe pain. His pain is much better controlled. - Objective Vital Signs & Weight: Vital Signs (12 hours) Temp Pulse Resp BP Pulse Ox 10/16/20 11:50 97.9 F 87 18 100/59 L 95 10/16/20 08:19 97.6 F 87 20 98/61 95 10/16/20 08:00 95 10/16/20 04:47 97.5 F L 87 20 101/69 96 Weight Admit Weight 216 lb 2 oz Weight 216 lb 2 oz I&O: 10/15/20 10/16/20 10/17/20 06:59 06:59 06:59 Intake Total 1340 480 240 Output Total 650 400 200 Balance 690 80 40 Result Diagrams: 10/13/20 07:06 10/13/20 07:06 Hospitalist ROS - Medication Medications: Active Medications Generic Name Dose Route Start Last Admin Trade Name Freq PRN Reason Stop Dose Admin Hydrocodone Bitart/Acetaminophen 1 tab 10/11/20 17:01 10/14/20 13:05 Hydrocodone/Acetaminophen 5/325 Mg Tablet PO 1 tab Q4H PRN Administration Moderate Pain (4-6) Cyanocobalamin 1,000 mcg 10/12/20 09:00 10/16/20 08:31 Cyanocobalamin (Vitamin B-12) 1,000 Mcg Tab PO 1,000 mcg DAILY SHEA Administration Fentanyl 50 mcg 10/15/20 17:00 10/15/20 16:15 Fentanyl 50 Mcg/Hour Patch TD 50 mcg Q3D SHEA Administration Ferrous Sulfate 325 mg 10/12/20 08:00 10/16/20 08:31 Ferrous Sulfate 325 Mg Tab PO 325 mg QAM-WM SHEA Administration Folic Acid 1 mg 10/12/20 09:00 10/16/20 08:31 Folic Acid 1 Mg Tab PO 1 mg DAILY SHEA Administration Gabapentin 100 mg 10/14/20 21:00 10/16/20 08:31 Gabapentin 100 Mg Cap PO 100 mg BID SHEA Administration Heparin Sodium (Porcine) 5,000 units 10/11/20 21:00 10/16/20 08:31 Heparin 5,000 Units/Ml Vial SC 5,000 units Q12HR SHEA Administration Meropenem 1 gm/ Device 50 mls @ 100 mls/hr 10/13/20 14:00 10/16/20 06:13 IVPB 50 mls Q8HR SHEA Administration Midodrine 5 mg 10/12/20 09:00 10/16/20 08:31 Midodrine Hcl 5 Mg Tab PO 5 mg TID SHEA Administration Morphine Sulfate 4 mg 10/11/20 17:01 10/16/20 08:31 Morphine 4 Mg/Ml Vial SLOW IVP 4 mg Q4H PRN Administration Moderate to Severe Pain (6-10) Morphine Sulfate 15 mg 10/14/20 17:58 10/15/20 10:06 Morphine Er 15 Mg Tab PO 15 mg TIDPRN PRN Administration Severe Pain (7-10) Saccharomyces Boulardii 250 mg 10/12/20 09:00 10/16/20 08:30 Saccharomyces Boulardii 250 Mg Cap PO 250 mg DAILY SHEA Administration Sodium Chloride 10 ml 10/13/20 21:00 10/16/20 08:40 Flush - Normal Saline 10 Ml Syringe IVF 10 ml Q12HR SHEA Administration Hospitalist Exam Vitals: Vital Signs (12 hours) Temp Pulse Resp BP Pulse Ox 10/16/20 11:50 97.9 F 87 18 100/59 L 95 10/16/20 08:19 97.6 F 87 20 98/61 95 10/16/20 08:00 95 10/16/20 04:47 97.5 F L 87 20 101/69 96 Weight Admit Weight 216 lb 2 oz Weight 216 lb 2 oz General Appearance: NAD, awake alert Eye: PERRL, anicteric sclera Heart: RRR, no murmur, no gallops, no rubs, normal peripheral pulses Respiratory: CTAB, no wheezes, no rales, no ronchi, normal chest expansion, no tachypnea Gastrointestinal: soft, non-tender, non-distended, normal bowel sounds, no palpable masses Extremities: no cyanosis (2+ pulese, no lesions), 2+ LE edema Hosp A/P (1) Pain due to malignant neoplasm metastatic to bone Code(s): G89.3 - NEOPLASM RELATED PAIN (ACUTE) (CHRONIC); C79.51 - SECONDARY MALIGNANT NEOPLASM OF BONE Status: Acute (2) Colonization with drug-resistant bacteria Code(s): Z22.39 - CARRIER OF OTHER SPECIFIED BACTERIAL DISEASES Status: Acute (3) Paraplegia, unspecified Code(s): G82.20 - PARAPLEGIA, UNSPECIFIED Status: Chronic (4) Lung cancer metastatic to bone Code(s): C34.90 - MALIGNANT NEOPLASM OF UNSP PART OF UNSP BRONCHUS OR LUNG; C79.51 - SECONDARY MALIGNANT NEOPLASM OF BONE Status: Chronic (5) Protein-calorie malnutrition, severe Code(s): E43 - UNSPECIFIED SEVERE PROTEIN-CALORIE MALNUTRITION Status: Chronic - Plan * Cancer related pain- He has gotten much better pain relief * Can titrate the dose of Gabapentin if he needs additional pain relief * Metastatic Lung Cancer- Awaiting Hospice Consult * Urine Colonization- Antibiotics are not needed
--- NOTE | 2020-10-16 14:50 | PRG ---
DATE OF SERVICE: 10/16/2020 SUBJECTIVE: Better control of his shooting abdominal pain. Kinney catheter in place. No respiratory symptoms. No vomiting. No diarrhea. He has remained afebrile through the hospital stay. OBJECTIVE: VITAL SIGNS: Other vital signs are normal. O2 saturations are 95% on room air. GENERAL: Appears in no distress, chronically ill appearing, oriented. Follows commands. LUNGS: Clear. HEART: S1, S2, regular rate. ABDOMEN: Soft, not distended or tender. LABORATORY DATA: White cell count 8.5, hemoglobin 10.9, platelets 286. Creatinine 1.0. Two sets of blood culture, no growth 48 hours. Urine culture with P aeruginosa and E faecalis, likely colonization without actual invasiveness. Patient is currently on meropenem, which I would recommend discontinuation. ASSESSMENT AND DISCUSSION: Metastatic lung cancer, spinal involvement, T7 progression and collapse of T7 vertebrae associated with pain which is likely radiculopathic, chronic colonization of urinary bladder, due to indwelling Kinney catheter, decubitus ulcer, which has improved. So, now on I would recommend discontinuation of antimicrobial therapy and palliative management for pain as noted. Job ID: [id number]
[2020-10-17] MEDS: MEROPENEM 1 GM/50 ML 1 GM in Premix Bag 1 BAG IVPB SCH ×2 (05:01→14:16)
[2020-10-17] MEDS: Ferrous Sulfate 325 MG TAB PO SCH (09:17)
[2020-10-17] MEDS: Cyanocobalamin (Vitamin B-12) 1,000 MCG TAB PO SCH (09:17)
[2020-10-17] MEDS: Midodrine HCl 5 MG TAB PO SCH ×2 (09:17→14:16)
[2020-10-17] MEDS: Heparin 5,000 UNITS/ML VIAL SC SCH (09:18)
[2020-10-17] MEDS: Saccharomyces boulardii 250 MG CAP PO SCH (09:18)
[2020-10-17] MEDS: Folic Acid 1 MG TAB PO SCH (09:18)
[2020-10-17] MEDS: Gabapentin 100 MG CAP PO SCH (09:18)
[2020-10-17] MEDS: Morphine 4 MG/ML VIAL SLOW IVP PRN (14:19)
--- NOTE | 2020-10-17 14:35 | PDOC.FMACP ---
Advance Care Planning - Problem (1) Palliative care encounter Status: Acute Code(s): Z51.5 - ENCOUNTER FOR PALLIATIVE CARE (2) Pain due to malignant neoplasm metastatic to bone Status: Acute Code(s): G89.3 - NEOPLASM RELATED PAIN (ACUTE) (CHRONIC); C79.51 - SECONDARY MALIGNANT NEOPLASM OF BONE (3) Anemia of chronic disease Status: Chronic Code(s): D63.8 - ANEMIA IN OTHER CHRONIC DISEASES CLASSIFIED ELSEWHERE (4) Paraplegia, unspecified Status: Chronic Code(s): G82.20 - PARAPLEGIA, UNSPECIFIED (5) Lung cancer metastatic to bone Status: Chronic Code(s): C34.90 - MALIGNANT NEOPLASM OF UNSP PART OF UNSP BRONCHUS OR LUNG; C79.51 - SECONDARY MALIGNANT NEOPLASM OF BONE (6) Lung cancer metastatic to brain Status: Chronic Code(s): C34.90 - MALIGNANT NEOPLASM OF UNSP PART OF UNSP BRONCHUS OR LUNG; C79.31 - SECONDARY MALIGNANT NEOPLASM OF BRAIN (7) Protein-calorie malnutrition, severe Status: Chronic Code(s): E43 - UNSPECIFIED SEVERE PROTEIN-CALORIE MALNUTRITION - Note Participants: patient, palliative care Summary: Palliative care revisited Advanced Care Planning with patient. The diagnosis, prognosis and goals of care were discussed. Appropriate forms and documentation to accomplish the goals of care were discussed. All questions were answered. Hopeful for transition to home setting with [facility] He has two sons, one of which lives out of the country and he will not be able to see in his limited time remaining, tearful. Symptoms adequately managed at this time. He met his dancing, they have been 52 years. Discussed listening to favorite old dance songs and dancing with their eyes and hearts. Emotional support offered. OOHDNAR completed. Time Spent (mins): 30
--- NOTE | 2020-10-17 15:27 | DIS ---
DATE OF ADMISSION: 10/11/2020 DATE OF DISCHARGE: 10/17/2020 DISCHARGE DIAGNOSES: 1. Sepsis with hypotension, suspected urinary tract source with indwelling catheter. 2. Urinary tract infection, likely colonization with Pseudomonas aeruginosa and Enterococcus species. 3. Acute kidney injury, resolved. 4. Metastatic lung carcinoma. 5. Stage IV sacral decubitus ulceration. 6. 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 7. Protein-calorie malnutrition, severe. CONSULTATIONS: Dr. Muñoz with Infectious Disease Service. PERTINENT LABORATORY AND X-RAY FINDINGS: Sodium ranged between 132 to 136. Lactic acid level 1.6. CBC showed a white blood cell count ranged between 6.8 to 11.2, hemoglobin ranged between 6.5 to 8.1. Influenza A and B, RNA not detected on 10/11/2020. COVID-19 PCR not detected on 10/11/2020. Urine culture dated on 10/11/2020 showed greater than 100,000 colonies of Pseudomonas aeruginosa and Enterococcus faecalis. Blood cultures x2 dated on 10/11/2020 showed no growth at 5 days. Portable chest x-ray dated on 10/11/2020 showed cardiomegaly with small left pleural effusion. CT of the abdomen and pelvis dated on 10/11/2020 showed no evidence of bowel obstruction or acute intraabdominal process. Interval worsening of metastatic process from T7 through L3 vertebrae. Severe decubitus ulceration over the sacrum and right iliac crest. HOSPITAL COURSE: The patient was initially admitted after presenting with generalized weakness in the context of known metastatic lung carcinoma, complaining of upper abdominal pain. The patient with chronic paraplegia due to metastatic lung carcinoma to the spinal column and vertebral bodies with the consequences of severe stage IV decubitus ulceration. The patient was initially placed on IV vancomycin, cefepime, fentanyl, and Zofran, and monitored for clinical response. The patient was initially treated per sepsis protocol with suspicion for skin or urinary tract source of infection. Urine culture did show Pseudomonas aeruginosa and Enterococcus species with therapy directed at these organisms. The patient was evaluated by the Infectious Disease Service due to the nature of the complex sacral wound in addition to the species noted on urine culture. The patient continued on general supportive management as well as local wound care services with wound VAC application, and continued on meropenem through his hospital course. The current recommendations are to not continue antibiotic therapy as the patient is likely colonized with these organisms. Due to the patient's multitude of medical issues and recurrent admissions, the family decided to pursue hospice care at home. The patient has been approved by [facility] on 10/17/2020. I have examined the patient at the time of discharge and discussed followup instructions. The patient verbalized understanding and in agreement, ready for discharge on 10/17/2020. DISCHARGE MEDICATIONS: 1. Lipitor 20 mg p.o. daily. 2. Citalopram 40 mg p.o. daily. 3. Duragesic patch 50 mcg q.72 hours. 4. Morphine sulfate 15 mg p.o. t.i.d. p.r.n. 5. Triamterene/hydrochlorothiazide discontinued. 6. Florastor 250 mg p.o. daily. 7. Gabapentin 100 mg p.o. b.i.d. 8. [place] 5/325 mg 1 tablet p.o. q.4 hours p.r.n. pain. 9. Midodrine 5 mg p.o. t.i.d. 10. Vitamin B12 of 1000 mcg p.o. daily. 11. Zinc sulfate 220 mg p.o. daily. FOLLOWUP: The patient may follow up with Dr. Leroy Zapata. The patient may follow up with [facility] at home. CONDITION ON DISCHARGE: Guarded. ACTIVITY: Ad-brock, bed-bound status currently. CODE STATUS: Do not attempt resuscitation. DIET: Regular. DISPOSITION: To home with [facility] on 10/17/2020. TIME SPENT: Total time preparing and coordinating discharge is 35 minutes. Job ID: [id number]
[2020-10-17 17:10] VITALS: BP 100/61; TEMP 98.6
== END 2020-10-17 17:51 | disposition hospice, home (50) | DRG 698 ==
LOC: ERS 11:11 → ERHOLD 14:39 → T4-B 18:36
PROVIDERS: ADMIT Internal Medicine; ATTEND Family Medicine
DX: T83.511A Infection and inflammatory reaction due to indwelling urethral catheter, initial encounter (principal); L89.154 Pressure ulcer of sacral region, stage 4; A41.9 Sepsis, unspecified organism; R65.21 Severe sepsis with septic shock; E43 Unspecified severe protein-calorie malnutrition; N17.9 Acute kidney failure, unspecified; C34.90 Malignant neoplasm of unspecified part of unspecified bronchus or lung; C79.31 Secondary malignant neoplasm of brain; C79.51 Secondary malignant neoplasm of bone; G82.21 Paraplegia, complete; J90 Pleural effusion, not elsewhere classified; J98.11 Atelectasis; Z66 Do not resuscitate; I48.91 Unspecified atrial fibrillation; E78.5 Hyperlipidemia, unspecified; Z51.5 Encounter for palliative care; I10 Essential (primary) hypertension; D63.8 Anemia in other chronic diseases classified elsewhere; L98.429 Non-pressure chronic ulcer of back with unspecified severity; N39.0 Urinary tract infection, site not specified; G89.3 Neoplasm related pain (acute) (chronic); B96.5 Pseudomonas (aeruginosa) (mallei) (pseudomallei) as the cause of diseases classified elsewhere; B95.2 Enterococcus as the cause of diseases classified elsewhere; Y83.9 Surgical procedure, unspecified as the cause of abnormal reaction of the patient, or of later complication, without mention of misadventure at the time of the procedure; Z20.822 Contact with and (suspected) exposure to COVID-19; I25.10 Atherosclerotic heart disease of native coronary artery without angina pectoris; Z92.3 Personal history of irradiation; Z92.21 Personal history of antineoplastic chemotherapy; Z86.73 Personal history of transient ischemic attack (TIA), and cerebral infarction without residual deficits; Z90.49 Acquired absence of other specified parts of digestive tract; Z95.0 Presence of cardiac pacemaker; Z79.899 Other long term (current) drug therapy; Z74.01 Bed confinement status; Z68.27 Body mass index [BMI] 27.0-27.9, adult; Z79.01 Long term (current) use of anticoagulants; Z22.39 Carrier of other specified bacterial diseases
CPT/HCPCS: 0240U; 36415; 36430; 71045; 74177; 80048; 80053; 81003; 81015; 83605; 83735; 85025; 86850; 86900; 86901; 87040; 87077; 87086; 87186; 93005; 96365; 96366; 96367; 96375; 96376; J0692; J1644; J1885; J2185; J2270; J2405; J3010; J3370; J3490; P9016; Q9967